=== PATIENT | female | born 1945 | race Caucasian/White ===

== ENCOUNTER → 2023-06-24 08:34 | Outpatient (REF) | payer MEDICARE, OTHER, SELFPAY | LOC: DHCBS MAIN 08:34 | PROVIDERS: ATTENDING PHYSICIAN Internal Medicine Cardiovascular Disease; FAMILY PHYSICIAN Family Medicine | DX: I10 Essential (primary) hypertension (principal); I25.10 Atherosclerotic heart disease of native coronary artery without angina pectoris; R00.2 Palpitations | CPT/HCPCS: 93306 ==

== ENCOUNTER → 2023-10-17 08:55 | Outpatient (REF) | payer MEDICARE, OTHER, SELFPAY | LOC: RAD 08:55 | PROVIDERS: ATTENDING PHYSICIAN Nurse Practitioner Adult Health | DX: R39.9 Unspecified symptoms and signs involving the genitourinary system (principal); N94.9 Unspecified condition associated with female genital organs and menstrual cycle | CPT/HCPCS: 76770 ==

== ENCOUNTER 2023-11-09 21:58 | Inpatient (IN) | payer MEDICARE, OTHER, SELFPAY ==
[2023-11-09 18:51] VITALS: BP 159/114
[2023-11-09 19:33] VITALS: BP 229/73
[2023-11-09 19:56] LABS: % Basophils 0.3 % (0-2); % Eosinophils 0.9 % (0-6); % Immature Granulocytes 0.3 % (0-0.5); % Lymphocytes 26.5 % (20.5-51.1); % Monocytes 6.3 % (1.7-9.3); % Neutrophils 65.7 % (42.2-75.2); Absolute Eosinophils 0.1 10^3/uL (0-0.7); Absolute Lymphocytes 2.6 10^3/uL (1.2-3.4); Absolute Monocytes 0.6 10^3/uL (0.1-0.6); Absolute Neutrophils 6.5 10^3/uL (1.4-6.5); Hematocrit 31.9 % (37.0-47.0); Hemoglobin 11.4 g/dL (12.0-16.0); Mean Corp Hgb Conc. 35.7 g/dL (33.0-37.0); Mean Corpuscular Hgb 29.3 pg (27.0-31.0); Mean Platelet Volume 10.5 fL (7.4-10.4); Nucleated Red Blood Cells % 0 %; Platelet Count 215 10^3/uL (130-400); Red Blood Cell Count 3.89 10^6/uL (4.20-5.40); Red Cell Dist. Width 13.3 % (11.5-14.5); White Blood Cell Count 9.9 10^3/uL (4.8-10.8)
[2023-11-09] MEDS: TRANDATE 10 MG IV (19:58)
[2023-11-09 20:12] LABS: Blood Urea Nitrogen 24 mg/dl (7-17); Calcium 8.9 mg/dl (8.4-10.2); Carbon Dioxide 27 mmol/L (22-30); Chloride 95 mmol/L (98-107); Glucose 103 mg/dl (70-99); Sodium 129 mmol/L (135-145); eGFR 57.31
[2023-11-09 20:42] VITALS: BP 206/88
[2023-11-09] MEDS: ATIVAN 1 MG PO (20:47)
--- NOTE | 2023-11-09 20:52 | ED.CVA ---
History of Present Illness
General
Chief Complaint: CVA/TIA Symptoms
Source: patient
Exam Limitations: none
Time Seen by Provider: 11/09/23 19:05
Nursing documentation reviewed up to this point in time: agreed with
Onset of Stroke Symptoms
Onset of symptoms known: Yes
Date of onset of symptoms: 11/09/23
History of Present Illness
History of Present Illness:
Patient with history of TIA and possible seizure disorder on Keppra, diagnosed after word finding difficulty episode 2 years ago, presents to ED secondary to recurrent word finding difficulty while she was at home, shortly prior to arrival in ED.
Denies fever or chills. Denies headache. Denies dizziness. Denies blurred vision. Denies difficulty with swallowing. Denies loss of sensation or weakness. Patient states that she had similar episode 2 years ago when she was initially given
diagnosis TIA. However, during follow-up visit at [facility], she was told that her symptoms were more likely secondary to seizure and has been started on Keppra. Patient has not had any recurrent symptoms until today. At the time of
evaluation in ED, patient states that her symptoms have resolved completely.
Past History
Past History
ED Past Medical History: Asthma, GERD, HTN, Hypercholesterolemia, Hypothyroidism, Psychiatric (anxiety) and Other (Low back pain, obesity)
ED Past Surgical History: Cholecystectomy, Gynecological (Hysterectomy) and Other (Skin cancer, melanoma removal)
Social History
Tobacco: Non-smoker
Alcohol: Occasional (Rare EtOH use)
Personal:
Living: with family
Employment: Retired
Family History
Family History: Hypertension; Negative CAD
Review of Systems
Review of Systems
Allergies reviewed?: Yes
All Other Systems: ROS reviewed and negative except as documented in HPI and ROS
Constitutional: Reports no symptoms
EENT: Reports no symptoms
Respiratory: Reports no symptoms
Cardiac: Reports no symptoms
ABD/GI: Reports no symptoms
Musculoskeletal: Reports no symptoms
Skin: Reports no symptoms
Neurological: Reports other (Word finding difficulty)
Phy Exam
Physical Exam
Physical Exam:
Physical Exam
General: no apparent distress, not acutely ill. afebrile
Head: nc/at. eomi
Neck: supple. no meningeal signs.
Heart: s1/s2 regular rate and rhythm, no murmur. equal radial pulses.
Lungs: no acute respiratory distress. clear bilaterally
Abdomen: normal bowel sounds. not tender.
Neuro: alert and oriented. no focal neurological deficits
Skin: no rash
Psychiatric: well kept. interactive and cooperative
Extremities: no edema. no calf tenderness.
Course
Orders/Labs/Results
Orders:
Orders
11/09/23 19:08
CT Head W/o Iv Contrast Urgent
Comment:
Reason For Exam: speech impairment
11/09/23 19:09
Electrocardiogram (*1) Stat
Reason for Study: Other
Other Reason for Exam: neuro symptoms
EKG- Treatment ONCE
11/09/23 19:37
Basic Metabolic Panel Urgent
Complete Blood Count/With Diff Urgent
Glycohemoglobin (HgbA1c) Urgent
11/09/23 19:54
Labetalol HCl [Trandate] 10 mg IV NOW STA
11/09/23 20:45
Lorazepam [Ativan] 1 mg PO NOW STA
11/09/23 20:47
Lorazepam [Ativan] 1 mg .ROUTE .STK-MED ONE
11/09/23 21:06
Aspirin 325 mg PO NOW STA
Clopidogrel Bisulfate [Plavix] 75 mg PO NOW STA
11/09/23 21:[address] Non Medication Order As Directed
Physician Order: please complete med rec. thanks
Above order entered?: Yes
11/09/23 21:45
Atenolol [Tenormin] 50 mg PO NOW STA
Atorvastatin [Lipitor] 40 mg PO NOW STA
Levetiracetam [Keppra] 500 mg PO NOW STA
Lisinopril [Zestril] 10 mg PO NOW STA
11/09/23 21:48
Admit/Transfer Patient As Directed
Co-Sign Provider:
Level of Care: Inpatient admission
Assign to:: Telemetry
Physician / Group: otilia guadarrama
Diagnosis: TIA
Reason for Telemetry: CVA/TIA
Date to Stop Telemetry: 11/12/23
Time to Stop Telemetry: 11:00
Reason for Hospitalization: TIA
Expected length of stay greater than two midnights?: Yes
ELOS- Estimated Length of Stay in days: 3
I certify the patient meets the requirements for IP care: Yes
11/09/23 21:49
PRN Pain Medication Management As Directed
May give lesser potent ordered pain med per pt: Yes
preference::
Protocol:: Medication orders for pain may be administered in a
manner that supports deferring to patient preference
when the pt is:
- Requesting an ordered lesser potent pain medication.
Least to most potent pain medications are defined
as: acetaminophen < NSAID < tramadol < opioids
(morphine, oxycodone, hydromorphone).
- Requesting a lesser dose of the same medication IF
ORDERED.
- Requesting a less intrusive route of administration
if both routes are prescribed by the provider (PO <
IV).
11/09/23 21:51
Code Status As Directed
Resuscitation Status: Full Code
11/09/23 23:50
Acetaminophen [Tylenol/Feverall] 650 mg RECTAL Q4HPRN PRN
Acetaminophen [Tylenol] 650 mg PO Q4HPRN PRN
Labetalol HCl [Trandate] 10 mg IV Q6HPRN PRN
Lorazepam [Ativan] 1 mg PO HS
11/09/23 23:50
Case Management Consult ONCE
Case Management Consult: Discharge Planning
Comment: stroke/tia
DIETARY CONSULT Routine
Reason for Consult: stroke/TIA
NEUROLOGY CONSULT Urgent
Consulting Provider: Shirin Carroll
Was physician already notified: Yes
Sample Distributor Urgent
Activity As Directed
Activity Level: As Tolerated
NIH Stroke Scale As Directed
Directions: Per protocol
Comment: every shift and with any change in condition or mental status
Neurological Checks As Directed
Frequency: q4h
Additional Instructions:: q4h x 24h upon admission to the floor, then qshift & with any change in condition
and mental status
Patient Education As Directed
Type: Stroke education packet
Comment: provide to patient and family
Pneumatic Compression Sleeves As Directed
Type: Thigh high
Swallow Screening CVA/TIA ONLY As Directed
Comment: NPO until swallowing screening completed
If patient FAILS swallow screening:: NPO, Speech Therapy consult, Aspiration Precautions
If patient PASSES swallow screening, diet:: Cholesterol Lowering
Above diet order entered?: Yes- passed screening
Vital Signs As Directed
Frequency: Per unit guidelines
Ot Eval And Treat Routine
Pt Eval And Treat Routine
Activity Level: As Tolerated
Speech Therapy Eval & Treat Routine
DX Deep Vein Thrombosis Video Routine
11/10/23 05:23
Basic Metabolic Panel IN AM
Cardiovascular Evaluation IN AM
Complete Blood Count/No Diff IN AM
11/10/23 06:00
Levothyroxine [Synthroid] 50 mcg PO DAILY @ 0600
11/10/23 08:00
Aspirin Chewable [Low Strength Aspirin] 81 mg PO DAILY
Atenolol [Tenormin] 50 mg PO BID
Buspirone [Buspar] 5 mg PO BID
Clopidogrel Bisulfate [Plavix] 75 mg PO DAILY
Levetiracetam [Keppra] 500 mg PO BID
Lisinopril [Zestril] 10 mg PO BID
Pantoprazole [Protonix] 40 mg PO DAILY
11/10/23 18:00
Atorvastatin [Lipitor] 40 mg PO QPM
11/11/23 06:00
Basic Metabolic Panel IN AM
Complete Blood Count/No Diff IN AM
11/12/23 06:00
Basic Metabolic Panel IN AM
Complete Blood Count/No Diff IN AM
11/12/23 11:00
DC Protocol for Telemetry ONCE
11/13/23 06:00
Basic Metabolic Panel IN AM
Complete Blood Count/No Diff IN AM
11/14/23 06:00
Basic Metabolic Panel IN AM
Complete Blood Count/No Diff IN AM
Abnormal Lab Results
11/09/23
19:37
RBC 3.89 L 10^6/uL
(4.20-5.40)
Hgb 11.4 L g/dL
(12.0-16.0)
Hct 31.9 L %
(37.0-47.0)
MPV 10.5 H fL
(7.4-10.4)
Sodium 129 L mmol/L
(135-145)
Chloride 95 L mmol/L
(98-107)
BUN 24 H mg/dl
(7-17)
Glucose 103 H mg/dl
(70-99)
11/09/23 19:37
11/09/23 19:37
Vital Signs
Initial and Last Documented VS:
Initial Vital Signs
Temp Pulse Resp BP Pulse Ox
98.2 F 75 16 159/114 98
11/09/23 18:51 11/09/23 18:51 11/09/23 18:51 11/09/23 18:51 11/09/23 18:51
Last Documented Vital Signs
Temp Pulse Resp BP Pulse Ox
98.0 F 67 18 150/74 93
11/11/23 03:05 11/11/23 03:00 11/11/23 03:05 11/11/23 03:00 11/11/23 03:05
MDM/Problems Addressed
MDM/Problems Addressed:
History and exam concerning for recurrent TIA versus hypertensive emergency. Patient will be admitted for further evaluation.
Discussed with Dr. Carroll, on-call neurology. Recommends starting patient on aspirin and Plavix (75mg)
*EKG
Interpreted by ED Provider?: Yes
EKG Intrepretation Date: 11/09/23
Heart Rate: 75
Rate: normal
Rhythm: sinus
[place]: left axis deviation
Interval: first degree heart block
*Critical Care Note
Total Time (30-74mins, 75-104mins- exclusive of procedures): Not Applicable
ED Attending Note
-
Portions of this chart may have been created with voice recognition software.� Occasional wrong word or��sound alike� substitutions may have occurred due to the inherent limitations of voice recognition software.
Discharge Plan
Departure
Patient Disposition: Admit
Date of Disposition: 11/09/23
Time of Disposition: 21:07
Admit to: Telemetry
Presentation/result/management discussed w/ accepting MD/DO: Hospitalist
Discharge Problem:
TIA (transient ischemic attack), Hypertensive emergency
Interventions
Interventions:
*Risk Screen - Suicide Last Done: 11/09/23 23:45
*General Assessment Last Done: 11/09/23 23:45
*Neglect/Abuse Screening Last Done: 11/09/23 23:45
*Nursing Disposition Last Done: 11/09/23 23:45
ED- Neurological Assessment Last Done: 11/09/23 19:35
ED- Cardiac Assessment Last Done: 11/09/23 19:37
ED Swallowing Screen Last Done: 11/09/23 19:34
Discharge Date and Time
Discharge Date/Time: 11/09/23 23:46
--- NOTE | 2023-11-09 21:26 | HPS.HSE ---
Family Physician
-
Family Physician: Stefan Tijerina Jr.
Chief Complaint
-
finding words difficulty
History of Present Illness
78 year old with PMH for GERD, HTN, HLD, hypothyroidism, anxiety, low back pain presented to us with finding words difficulty which lasted for 45 minutes. stated MCDANIEL. denied dizziness or syncopal episode. denied fever, chills, chest pain, sob. denied
abdominal pain, n,v,d. denied dysuria or hematuria.
on arrival noted elevated BP. received asa, Plavix, labetalol, Ativan in ER. Admitting for further management
Medical History
Past Medical History
Past Medical History: Reports Other
Additional Past Medical History:
Hypothyroidism
High cholesterol hypertension
GERD
TIA
Seizure
Anxiety
Past Surgical History: Reports Other
Additional Past Surgical History:
Cholecystectomy
Hysterectomy
Social History
Tobacco: Non-smoker
Alcohol: None
Drug: None
Personal:
Living: With Family
Family History
Family History: Not pertinent
Allergies / Home Medications
Allergies reflects when Allergies were last updated in [employer].
Home Medications with original date entered in [employer]
Allergy/Medication List:
Allergies
Allergy/AdvReac Type Severity Reaction Status Date / Time
ibuprofen AdvReac reflux Verified 11/09/23 18:57
symptoms
NSAIDS (Non-Steroidal AdvReac reflux Verified 11/09/23 18:57
Anti-Inflamma symptoms
Home Medications
atenolol 50 mg tablet 50 mg PO BID 05/15/15
atorvastatin 10 mg tablet 10 mg PO QPM 05/15/15
cholecalciferol (vitamin D3) 10 mcg (400 unit) tablet (Vitamin D3) 1,000 units PO DAILY 05/15/15
esomeprazole magnesium 40 mg capsule,delayed release (Nexium) 40 mg PO DAILY 05/15/15
levothyroxine 50 mcg tablet 50 mcg PO DAILY 05/15/15
ranitidine HCl 150 mg tablet 150 mg PO HSPRN PRN acid reflux 08/08/17
sucralfate 100 mg/mL oral suspension 1 gm PO DAILYPRN PRN GERD 08/08/17
acetaminophen 500 mg tablet (Tylenol Extra Strength) 1,000 mg PO Q6HPRN PRN pain 06/09/18
docusate sodium 100 mg capsule 100 mg PO DAILYPRN PRN stool softner 06/09/18
fluticasone propionate 50 mcg/actuation nasal spray,suspension 2 spray intranasal DAILYPRN PRN allergies 06/09/18
lisinopril 10 mg tablet 10 mg PO BID 06/09/18
lorazepam 1 mg tablet 1 mg PO HS 06/09/18
polyvinyl alcohol-povidone (PF) 1.4 %-0.6 % eye drops in a dropperette (Refresh Classic (PF)) 1 drops OPHTHALMIC HSPRN PRN dry eyes 06/09/18
albuterol sulfate 90 mcg/actuation aerosol inhaler (Ventolin HFA) 1 puff inhalation Q6HPRN PRN sob ##1 06/11/18
aspirin 81 mg chewable tablet 81 mg PO DAILY 08/30/21
hydrochlorothiazide 25 mg tablet 25 mg PO DAILY 08/30/21
buspirone 5 mg tablet 5 mg PO BID 11/09/23
levetiracetam 500 mg tablet (Keppra) 500 mg PO BID 11/09/23
Review of Systems
-
Constitutional: Reports No Symptoms
EENT: Reports No Symptoms
Respiratory: Reports No Symptoms
Cardiac: Reports No Symptoms
Abdomen/GI: Reports No Symptoms
: Reports No Symptoms
Musculoskeletal: Reports No Symptoms
Skin: Reports No Symptoms
Neurological: Reports Headache and Other (Finding words difficulty)
Endocrine: Reports No Symptoms
Hematologic/Lymphatic: Reports No Symptoms
Psych: Reports No Symptoms
Physical Exam
Vital Signs
Vital Signs
Temp Pulse Resp BP Pulse Ox
98.2 F 71 16 206/88 100
11/09/23 18:51 11/09/23 20:42 11/09/23 18:51 11/09/23 20:42 11/09/23 20:42
Physical Exam
General: Well Developed, Well Nourished and No Apparent Distress
HEENT: NormoCephalic, Moist mucous membranes and Atraumatic
Respiratory: Clear
Cardiac: S1/S2 and Regular Rhythm; No Murmur or Rub
GI: Soft, Non Tender, Non Distended and Normal Bowel Sounds; No Organomegaly
Rectal: Deferred by Provider
Musculoskeletal: No Clubbing, No Cyanosis and No Edema
Skin: No Rash
Neuro: AO x 3 and Nonfocal/grossly intact
Psych: Calm
Laboratory Results
-
11/09/23 19:37
11/09/23 19:37
Laboratory Results
Total Bilirubin Cancelled 11/09/23 19:37
AST Cancelled 11/09/23 19:37
ALT Cancelled 11/09/23 19:37
Alkaline Phosphatase Cancelled 11/09/23 19:37
Data Reviewed
-
CT Scan: Report Reviewed by me
Lab Data: Labs Reviewed by me
Impression/Plan
-
#words finding difficulty r/o TIA
-asa and Plavix
-Obtain MRI/MRA
-Continue statin
-Obtain A1c and lipid profile-
-PT OT consult
-Neurology consult
-Head CT There are no focal or acute intracranial abnormalities.There is mild diffuse cortical atrophy
# Anemia of chronic disease
Hemoglobin stable at 11.4-
-no active bleeding
-Continue to monitor
# Acute on chronic hyponatremia likely from HCTZ
-Sodium 129
-Hold HCTZ
# Hypertension emergency
-Systolic BP elevated in 200s
-Received labetalol in ER
-Will continue atenolol, lisinopril with hold parameters
-CKD 3a/b
-Creatinine stable
# Anxiety
-Buspirone continued
# Seizure
-Keppra continued
#GERD on PPI and Carafate, H2 blockers
#Hypothyroidism
-continue Synthroid
# CODE STATUS
-Full code
# DVT prophylaxis
-SCDs
[2023-11-09] MEDS: ASPIRIN 325 MG PO (21:47)
[2023-11-09] MEDS: PLAVIX 75 MG PO (21:48)
--- NOTE | 2023-11-09 21:57 | W.PN.UPDATE ---
Addendum entered and electronically signed by Leighton Cartagena MD 11/10/23 12:33:
Correction:
VS upn admission from ER: BP 229/78 <del>1229/78</del> --> 205/88 <del>105/88</del> s/p IV labetalol 10mg --> BP 180/80 HR 71
Original Note:
Update Note
Progress Note Update
This note serves as an addendum to the H&P by mine utility operator DAISY BUTT
HPI
78F Non smoker HX TIA, possible Sz disorder , HX HTN, HLD, GERD graciela t ER for acute abnornla speech with recurrent word finding difficult at home. Similar episode 2 years ago when she was initially given diagnosis TIA. However, during follow-up
visit at [facility], she was told that her symptoms were more likely secondary to seizure and has been started on Keppra
PHX
Asthma, GERD, HTN, Hypercholesterolemia, Hypothyroidism, Psychiatric (anxiety), Other (Low back pain, obesity)
Reviewed VS: BP 1229/78 --> 105/88 s/p IV labetalol 10mg --> BP 180/80 HR 71
PE
Gen: Not toxic , obese
HEENT: symmetric face, nomal speech
Neck: supple
Lungs: CTA
Cor: RRR S1 S2 no mummur
Abdomen: benign exam
SUSTAINABILITY OFFICER: AAO3 NFND
MS: no edema
Psych: interactive and cooperative
Data
nl CBC
Na 129 on HCTZ - baseline 126- 130
Cl 95
BUN 24
eGFR 57 c/w CKD 3
EKG
SINUS RHYTHM WITH 1ST DEGREE A-V BLOCK
LEFT AXIS DEVIATION
LEFT VENTRICULAR HYPERTROPHY WITH QRS WIDENING AND REPOLARIZATION ABNORMALITY
( R in aVL , [place] product )
ABNORMAL ECG
WHEN COMPARED WITH ECG OF 29-AUG-2021 18:46,
CRITERIA FOR SEPTAL INFARCT ARE NO LONGER PRESENT
HCT:
There are no focal or acute intracranial abnormalities.
There is mild diffuse cortical atrophy
06/24/23 TTE:
LV ejection fraction is 56%
Normal right ventricular size and function
Mild mitral regurgitation.
Trace tricuspid regurgitation.
pulmonary artery pressure of 26 mmHg assuming a right atrial pressure of 3 mmHg.
Last hospitalist admission: 08/30/21 - 09/07/21
PDX: Presumed transient ischemic attack.
ASSESSMENT & PLAN
Pending Rx reconciliation
Episodes of word finding difficulty DDX: TIA r/o CVA vs HTN encephalopathy
NEG HCT
- Add plavix to TUGBOAT ENGINEER ASA daily
- [place] Atorvastatin to 40 HS
- Brain MRI to Neuro
- Neuro consulted
HTN urgency
Essential HTN on Lisinopril and atenolol
- to give TUGBOAT ENGINEER Atenolol and Lisinopril
- IV labetalol PRN > SBP 185 DBP > 110
- Observe BP
CKD 3a s baseline
Base line Cr 1.3, eGFR FR 50 s
- Observe Cr
HX Mild Asthma
> no flare
GERD on PPI and Carafate, H2 blockers
Hypothyroidism
-continue Synthroid
Sciatica
DVT Px: SCD
Code: Full
IP TLM
[2023-11-09 22:18] VITALS: BP 188/88
[2023-11-09] MEDS: TENORMIN 50 MG PO (22:32)
[2023-11-09] MEDS: ZESTRIL 10 MG PO (22:32)
[2023-11-09] MEDS: LIPITOR 40 MG PO (22:33)
[2023-11-09] MEDS: KEPPRA 500 MG PO (22:37)
--- NOTE | 2023-11-09 23:50 | PTCARENOTE ---
Pt received from ED to [facility]-2. Oriented to room and call fournier.
[2023-11-10] VITALS (9 sets, daily range): BP systolic 148–178; BP diastolic 68–82; PULSE 61–71; O2SAT 97
[2023-11-10] MEDS: ATIVAN PO (00:49)
[2023-11-10] MEDS: BUSPAR 5 MG PO ×3 (01:19→20:13)
[2023-11-10] MEDS: SYNTHROID 50 MCG PO (06:06)
[2023-11-10 06:40] LABS: Hematocrit 31.3 % (37.0-47.0); Hemoglobin 11.1 g/dL (12.0-16.0); Mean Corp Hgb Conc. 35.5 g/dL (33.0-37.0); Mean Corpuscular Hgb 29.9 pg (27.0-31.0); Mean Corpuscular Volume 84.4 fL (81.0-99.0); Mean Platelet Volume 10.9 fL (7.4-10.4); Platelet Count 207 10^3/uL (130-400); Red Blood Cell Count 3.71 10^6/uL (4.20-5.40); Red Cell Dist. Width 13.2 % (11.5-14.5); White Blood Cell Count 9.9 10^3/uL (4.8-10.8)
[2023-11-10 06:43] LABS: Blood Urea Nitrogen 22 mg/dl (7-17); Calcium 9.1 mg/dl (8.4-10.2); Carbon Dioxide 29 mmol/L (22-30); Chloride 94 mmol/L (98-107); Glucose 90 mg/dl (70-99); HDL Cholesterol 71 mg/dl; LDL Cholesterol, Calculated 62 mg/dl; Potassium 3.4 mmol/L (3.5-5.1); Sodium 131 mmol/L (135-145); Total Cholesterol 144 mg/dl (50-199); Triglyceride 55 mg/dl (10-149); Very Low Density Lipoprotein 11 mg/dl (0-30); eGFR 57.31
[2023-11-10] MEDS: ZESTRIL 10 MG PO ×2 (07:50→20:13)
[2023-11-10] MEDS: PROTONIX 40 MG PO (07:50)
[2023-11-10] MEDS: LOW STRENGTH ASPIRIN 81 MG PO (07:51)
[2023-11-10] MEDS: KEPPRA 500 MG PO ×2 (07:51→20:12)
[2023-11-10] MEDS: PLAVIX 75 MG PO (07:51)
[2023-11-10] MEDS: TENORMIN 50 MG PO ×2 (07:51→20:20)
--- NOTE | 2023-11-10 08:50 | PTOTSP ---
Speech Language Pathology
Pt seen for speech/language evaluations. No dysarthria noted. Language evaluated via the Quick Aphasia Battery (QAB), form 1. Overall score of 9.33, indicative of no aphasia. Pt reported she is back to baseline.
Further [employer]IPE [employer] MAINTENAN[employer] services not indicated. Please reconsult as warranted.
[2023-11-10] MEDS: KCL 20 MEQ PO (09:02)
[2023-11-10 09:15] LABS: Glycohemoglobin (HgbA1c) 5.6 % (4.0-5.6)
--- NOTE | 2023-11-10 09:23 | CON.NEURO4 ---
Consultation - Neurology 4
-
CONSULTING PHYSICIAN: Gilberto Magallon MD
REFERRING PHYSICIAN: Hospitalist
DICTATED BY: Gilberto Magallon MD
DATE/TIME OF REQUEST:
DATE/TIME OF CONSULTATION: 11/10/2023 0915
Reason for Consultation: Word finding difficulty
History of Present Illness:
This is a 78 year old right handed female who has presented to the hospital with chief complaint of speech impediment. She gives a history of hypertension GERD hyperlipidemia hypothyroidism anxiety disorder who has had multiple hospital visits in
the past for speech impediment. She had been in her usual state of health till an hour before admission on November 08. At that time she had difficulty expressing herself. She then came to the emergency room and her blood pressure was noted to be
elevated. She had no neurological deficits. She has had no further episodes following admission. At the time of my examination she is extremely anxious
-
Past Medical History: Hypertension anxiety disorder
Surgical History: Cholecystectomy and hysterectomy
Family History: Noncontributory
Social History: retired lives at home with her
Allergies: NSAIDs
Home Medications: See addendum
Review of Symptoms:
Patient denies any fever, headache, chest pain, shortness of breath, GI or symptoms.
�Per the HPI.�All systems are reviewed negative except above.
�- Remove any of these problems that patient may have complained about in the HPI.
�- If patient is unresponsive, intubated or demented, say 'Per the HPI. I am unable to obtain a complete review of systems�because of patient's inability to provide history.'
Vital Signs:
The patient has a
Physical Exam:
The patient is afebrile, heart sounds S1 and S2 are regular , and chest is clear to auscultation bilaterally.
- If not clear, describe.
NIH Stroke Scale (if applicable):
I performed the NIH stroke scale on the patient and his stroke score is 0
Neurologic Examination:
The patient is awake, alert and oriented x 3. (He/She) is able to follow commands and answer questions appropriately. There is no aphasia or dysarthria. On cranial nerve assessment, pupils are 3 mm bilateral, round and reactive to light and
accommodation. Visual stover are full. Extraocular movements are intact. Facial sensations are intact and bilaterally symmetrical, there is no facial asymmetry. Hearing is intact bilaterally to normal conversation volume. Tongue palate and uvula
are midline. Sternocleidomastoid strengths are full bilaterally. Motor strengths are 5/5 bilateral upper and lower extremities on medical research Sycuan scale. There is no drift or involuntary movement noted. Deep tendon reflexes are 2+ bilateral
upper and lower extremities and Babinski is absent bilaterally. Sensations of pain, touch, temperature and vibration are intact and bilaterally symmetrical. There was no extinction noted on double simultaneous stimulation. Coordination is intact by
finger to nose bilaterally.
Lab Results: Addendum
Neuro Imaging: Atrophy small vessel disease
Impression:
Ms. MAIKEL GOMEZ is a 78 year old F who has presented to the hospital with symptoms.
Recommendations:
1. Continue aspirin
2. Continue Keppra
3. MRI of the head
She may be discharged home once medically stable
Discussed patient care with: Hospitalist
Total Time Spent with Patient (in minutes): 30
Vital Signs and Labs
-
Vital Signs and Labs:
Vital Signs
Temp Pulse Resp BP Pulse Ox
36.5 C 63 18 178/80 97
11/10/23 03:47 11/10/23 03:57 11/10/23 03:57 11/10/23 03:57 11/10/23 03:47
Lab Results
11/10/23 05:23
11/10/23 05:23
Sodium 131 mmol/L (135-145) L 11/10/23 05:23
Potassium 3.4 mmol/L (3.5-5.1) L 11/10/23 05:23
BUN 22 mg/dl (7-17) H 11/10/23 05:23
Glucose 90 mg/dl (70-99) 07/22/24 05:23
Calcium 9.1 mg/dl (8.4-10.2) 11/10/23 05:23
LDL Cholesterol, Calc 62 mg/dl 11/10/23 05:23
Medications
-
Active Medications
Generic Name Dose Route Start Last Admin
Trade Name Freq PRN Reason Stop Dose Admin
Acetaminophen 650 mg 11/09/23 23:50
Acetaminophen 650 Mg Rectal Suppository RECTAL 12/07/23 23:49
Q4HPRN PRN
MCDANIEL, mild pain, or temp >100.4F
Acetaminophen 650 mg 11/09/23 23:50
Acetaminophen 325 Mg Tablet PO 12/07/23 23:49
Q4HPRN PRN
MCDANIEL, mild pain, or temp >100.4F
Aspirin 81 mg 11/10/23 08:00 11/10/23 07:51
Aspirin 81 Mg Chewable Tablet PO 12/08/23 07:59 81 mg
DAILY PEPE Administration
Atenolol 50 mg 11/10/23 08:00 11/10/23 07:51
Atenolol 50 Mg Tablet PO 12/08/23 07:59 50 mg
BID PEPE Administration
Atorvastatin Calcium 40 mg 11/10/23 18:00
Atorvastatin (Lipitor) 40 Mg Tablet PO 12/08/23 17:59
QPM PEPE
Buspirone HCl 5 mg 11/10/23 08:00 11/10/23 07:51
Buspirone 5 Mg Tablet PO 12/08/23 07:59 5 mg
BID PEPE Administration
Clopidogrel Bisulfate 75 mg 11/10/23 08:00 11/10/23 07:51
Clopidogrel 75 Mg Tablet PO 12/08/23 07:59 75 mg
DAILY PEPE Administration
Labetalol HCl 10 mg 11/09/23 23:50
Labetalol Hcl 5 Mg/1 Ml (20 Mg/4 Ml) Injection IV 12/07/23 23:49
Q6HPRN PRN
htn
Levetiracetam 500 mg 11/10/23 08:00 11/10/23 07:51
Levetiracetam 500 Mg Regular Release Tablet PO 12/08/23 07:59 500 mg
BID PEPE Administration
Levothyroxine Sodium 50 mcg 11/10/23 06:00 11/10/23 06:06
Levothyroxine 50 Mcg Tablet PO 12/08/23 05:59 50 mcg
DAILY @ 0600 PEPE Administration
Lisinopril 10 mg 11/10/23 08:00 11/10/23 07:50
Lisinopril 10 Mg Tablet PO 12/08/23 07:59 10 mg
BID PEPE Administration
Lorazepam 1 mg 11/09/23 23:50 11/10/23 00:49
Lorazepam 1 Mg Tablet PO 12/07/23 23:49 Not Given
HS PEPE
Pantoprazole Sodium 40 mg 11/10/23 08:00 11/10/23 07:50
Pantoprazole 40 Mg Delayed Release Tablet PO 12/08/23 07:59 40 mg
DAILY PEPE Administration
Sodium Chloride 0 flush 11/09/23 23:00
Sodium Chloride 0.9% (Flush) Syringe IV 12/07/23 22:59
PER PROTOCOL PEPE
Home Medications
�Medication �Instructions �Recorded
atenolol 50 mg tablet 50 mg PO BID 05/15/15
atorvastatin 10 mg tablet 10 mg PO QPM 05/15/15
cholecalciferol (vitamin D3) 10 1,000 units PO DAILY 05/15/15
mcg (400 unit) tablet (Vitamin D3)
levothyroxine 50 mcg tablet 50 mcg PO DAILY 05/15/15
ranitidine HCl 150 mg tablet 150 mg PO HSPRN PRN acid reflux 08/08/17
sucralfate 100 mg/mL oral 1 gm PO DAILYPRN PRN GERD 08/08/17
suspension
acetaminophen 500 mg tablet 1,000 mg PO Q6HPRN PRN pain 06/09/18
(Tylenol Extra Strength)
docusate sodium 100 mg capsule 100 mg PO DAILYPRN PRN stool 06/09/18
softner
fluticasone propionate 50 2 spray intranasal DAILYPRN PRN 06/09/18
mcg/actuation nasal allergies
spray,suspension
lisinopril 10 mg tablet 10 mg PO BID 06/09/18
lorazepam 1 mg tablet 1 mg PO HS 06/09/18
polyvinyl alcohol-povidone (PF) 1 drops OPHTHALMIC HSPRN PRN dry 06/09/18
1.4 %-0.6 % eye drops in a eyes
dropperette (Refresh Classic (PF))
albuterol sulfate 90 mcg/actuation 1 puff inhalation Q6HPRN PRN sob 06/11/18
aerosol inhaler (Ventolin HFA) ##1
aspirin 81 mg chewable tablet 81 mg PO DAILY 08/30/21
hydrochlorothiazide 25 mg tablet 25 mg PO DAILY 08/30/21
buspirone 5 mg tablet 5 mg PO BID 11/09/23
levetiracetam 500 mg tablet 500 mg PO BID 11/09/23
(Keppra)
esomeprazole magnesium 40 mg 40 mg PO DAILY 11/10/23
capsule,delayed release (Nexium)
--- NOTE | 2023-11-10 09:27 | PTOTSP ---
Pt presents to OT oriented x 3, follows 1-2 step directions, vision WFL with glasses, and UB ROM, strength and coordination is WFL. Currently at mod I level for basic self care, transfers and mobility in room and bathroom without AD. No further
skilled OT indicated at this time.
--- NOTE | 2023-11-10 12:15 | CM ---
Patient seen bedside, initial assessment completed. Patient resides with her in a single story home, two steps to enter. Patient has a single point cane and rolling walker at home if needed, typically ambulates independently. Patient denies
VN or SNF history. Patient confirms PCP Stefan Tijerina, [facility]. Patient denies any food, housing/utility, transportation insecurities at home. CM will continue to follow for all discharge planning needs.
Plan; home no needs likely.
--- NOTE | 2023-11-10 16:37 | CS.PSYCHR ---
Consult Summary - Psychiatry
-
Pt is 78 yo female with history of anxiety, admitted after presenting with episode of word-finding difficulty last approx 45 min, headache. Pt found to have very high BP. Psychiatry asked to see due to anxiety. Pt states she has always been a
very anxious person, worries about the future, now preoccupied with her 's health, her own health problems, finances, stress of aging. Pt states she is terrified of having a stroke. Pt is prescribed Buspar 5 mg BID and Ativan 1 mg HS by her
PCP. Pt very nervous about having an MRI, states it reminds her of a coffin.
PMH: TIA, possible Sz disorder, HTN, HLD, GERD, back pain due to degen discs. Pt had similar episode 2 years ago, initially diagnosed with TIA. However, in f/u with [facility], she was told that her symptoms were more likely secondary
to seizure, placed on Keppra
Psych Hx: previous outpatient therapy, which was helpful for the most part, states it is now too expensive since care home. Saw a psychiatrist at age 21, which helped overall, states issues with her father who had a volatile temper. No hx of
inpatient tx
SH: , living with age 82. 'Worked by [employer],' now retired.
MSE: alert, oriented, calm, cooperative. Resting in bed, in no acute distress. Mood stable, affect appropriate/constricted. Pt c/o anxiety, excess worry. Denies SI. No agitation, no signs of psychosis. Insight fair to limited regarding
anxiety-inducing mindset
Imp: Unspecified anxiety d/o, R/o JANIE vs adjustment d/o
Rec: continue existing anxiety meds; encourage pt to seek outpatient therapy upon return home/ when medically stable
Agree with prn Ativan, may help with MRI. Will follow
--- NOTE | 2023-11-10 16:51 | W.PN.HOSP.TC ---
Addendum entered and electronically signed by Dillon Mann MD 11/10/23 17:30:
I saw and evaluated the patient. I reviewed the resident�s note and agree with findings and plan as documented in the resident�s note.
Original Note:
Today's Communication/Plan
-
Brain MRI--Neurology consult
Assessment / Plan
Assessment / Plan
78F Non smoker, PMH HTN, HLD, GERD, TIA/Seizure
--Acute abnormal speech with word finding difficult at home: Patient has not shown any signs of abnormal speech, vision changes, gait abnormalities, weakness/sensory deficits, or swallowing difficulties since admission. Head CT--no focal or acute
intracranial abnormalities.There is mild diffuse cortical atrophy--EKG: Sinus rhythm with 1st degree AV block--Neurology consult ordered-- MRI to be done--apprec speech therapist
--Essential HTN: Elevated BP on admission--IV labetalol PRN given--cont Lisinopril and atenolol (home medications)--Monitor BP
--Anxiety: Cont Buspar-- Start Ativan PRN--apprec psychiatry
--GERD: Pantoprazole
--Hypothyroidsm: Cont Levothyroxin
DVT prophylaxis: SCD
Anticipated Discharge: 24 - 48 hours
Subjective/Interval History
-
Date of Service: November 10, 2023
Patient is feeling good. Is alert and oriented. She seem very anxious and worried about her health condition. She does not mention any word finding difficulties overnight. Speech is normal.
Objective Data
-
Labs:
Laboratory Results
11/10/23
05:23
WBC 9.9
Hgb 11.1 L
Hct 31.3 L
Plt Count 207
Sodium 131 L
Potassium 3.4 L
Chloride 94 L
Carbon Dioxide 29
BUN 22 H
Creatinine 1.0
Glucose 90
Calcium 9.1
Vital Signs:
Vital Signs
Temp Pulse Resp BP Pulse Ox
97.8 F 68 18 152/78 96
11/10/23 14:35 11/10/23 14:35 11/10/23 14:35 11/10/23 14:35 11/10/23 14:35
Review of Systems
-
History Source: Patient
All other systems: Reviewed and negative
Neuro: Reports Headache (occasional headaches)
Psych: Reports Anxious
Physical Exam
-
General: Well Developed and Well Nourished
HEENT: Normocephalic and Atraumatic
Respiratory: Clear to Auscultation
Cardiac: Regular Rhythm and S1/S2
GI: Soft, Nontender, Nondistended and Normal Bowel Sounds
Genito-urinary: No Costovertebral Tender
Musculoskeletal: No Clubbing, No Cyanosis and No Edema
Neuro: Awake, Alert, Oriented and AO x 3
Psych: Anxious
Data Reviewed
-
Total Time Spent with Patient (in minutes): 25
[2023-11-10] MEDS: LIPITOR 40 MG PO (17:04)
[2023-11-10] MEDS: ATIVAN 0.5 MG PO (17:08)
[2023-11-10] MEDS: ATIVAN 1 MG PO (21:28)
[2023-11-11 03:00] VITALS: BP 150/74
[2023-11-11] MEDS: SYNTHROID 50 MCG PO (05:37)
[2023-11-11] MEDS: KEPPRA 500 MG PO (07:56)
[2023-11-11] MEDS: PROTONIX 40 MG PO (07:56)
[2023-11-11] MEDS: PLAVIX 75 MG PO (07:56)
[2023-11-11] MEDS: BUSPAR 5 MG PO (07:56)
[2023-11-11] MEDS: LOW STRENGTH ASPIRIN 81 MG PO (07:56)
[2023-11-11] MEDS: TENORMIN 50 MG PO (07:57)
[2023-11-11] MEDS: ZESTRIL 10 MG PO (07:57)
[2023-11-11 08:00] VITALS: BP 160/84
--- NOTE | 2023-11-11 08:18 | W.PN.HOSP.TC ---
Addendum entered and electronically signed by Ren Jacobo MD, Resident 11/11/23 17:53:
MRI findings were discussed with Dr. Mann and Dr. Magallon (neurologist). Patient is clinically stable and is clear for discharge from Neurology standpoint (documented through [employer]).
Addendum entered and electronically signed by Dillon Mann MD 11/11/23 15:27:
I saw and evaluated the patient. I reviewed the resident�s note and agree with findings and plan as documented in the resident�s note.
Await MRI brain for further eval. Appreciate neurology input. DC Plavix if no acute stroke or intracranial atherosclerosis.
With regards to hypertension not at goal yet. Went over the patient that hydrochlorothiazide not a good choice with hyponatremia. She is agreeable to uptitrate the lisinopril to 20 mg twice daily and continue with her atenolol.
DC planning depending on MRI of the brain.
Original Note:
Today's Communication/Plan
-
Brain MRI without contrast
Assessment / Plan
Assessment / Plan
78F Non smoker, PMH HTN, HLD, GERD, TIA/Seizure
--Acute abnormal speech with word finding difficult at home: Patient has not shown any signs of abnormal speech, vision changes, gait abnormalities, weakness/sensory deficits, or swallowing difficulties since admission. Head CT--no focal or acute
intracranial abnormalities.There is mild diffuse cortical atrophy--EKG: Sinus rhythm with 1st degree AV block--Neurology consult ordered--apprec speech therapist--MRI to be done
--Essential HTN: Elevated BP on admission--IV labetalol PRN given--cont Lisinopril and atenolol (home medications)--Monitor BP
--Anxiety: Cont Buspar-- Start Ativan PRN--apprec psychiatry
--GERD: Pantoprazole
--Hypothyroidsm: Cont Levothyroxin
DVT prophylaxis: SCD
Anticipated Discharge: Within 24 hours
Subjective/Interval History
-
Date of Service: November 11, 2023
Patient did not have any medical complaints. She only mentions she is worried about experiencing stroke symptoms again. Speech and gait is normal.
Objective Data
-
Labs:
Laboratory Results
11/11/23
06:00
WBC Pending
Hgb Pending
Hct Pending
Plt Count Pending
Sodium Pending
Potassium Pending
Chloride Pending
Carbon Dioxide Pending
BUN Pending
Creatinine Pending
Glucose Pending
Calcium Pending
Vital Signs:
Vital Signs
Temp Pulse Resp BP Pulse Ox
98.0 F 60 18 160/84 93
11/11/23 03:05 11/11/23 07:57 11/11/23 03:05 11/11/23 07:57 11/11/23 03:05
Review of Systems
-
History Source: Patient
All other systems: Reviewed and negative
Psych: Reports Anxious
Physical Exam
-
General: Well Developed, Well Nourished, Comfortable and Obese
HEENT: Normocephalic and Atraumatic
Respiratory: Clear to Auscultation
Cardiac: Regular Rhythm and S1/S2
GI: Soft, Nontender and Nondistended
Musculoskeletal: No Clubbing, No Cyanosis and No Edema
Neuro: Awake, Alert, Oriented and AO x 3
Psych: Anxious
Data Reviewed
-
Total Time Spent with Patient (in minutes): 15
[2023-11-11 08:45] LABS: Hematocrit 32.5 % (37.0-47.0); Hemoglobin 11.4 g/dL (12.0-16.0); Mean Corp Hgb Conc. 35.1 g/dL (33.0-37.0); Mean Corpuscular Hgb 28.9 pg (27.0-31.0); Mean Corpuscular Volume 82.5 fL (81.0-99.0); Mean Platelet Volume 10.1 fL (7.4-10.4); Platelet Count 202 10^3/uL (130-400); Red Blood Cell Count 3.94 10^6/uL (4.20-5.40); Red Cell Dist. Width 13.3 % (11.5-14.5); White Blood Cell Count 8.6 10^3/uL (4.8-10.8)
[2023-11-11 09:00] LABS: Blood Urea Nitrogen 22 mg/dl (7-17); Calcium 9.4 mg/dl (8.4-10.2); Carbon Dioxide 31 mmol/L (22-30); Chloride 93 mmol/L (98-107); Glucose 98 mg/dl (70-99); Potassium 3.7 mmol/L (3.5-5.1); Sodium 131 mmol/L (135-145); eGFR 51.11
--- NOTE | 2023-11-11 10:35 | W.PN.UPDATE ---
Update Note
Progress Note Update
Patient seen at bedside, chart reviewed, discussed with staff. Ms. Gordillo is awaiting MRI and hoping to go home as soon as possible. She is not comfortable in her bed and feels the rooms are set up poorly. Her back is bothering her as well. Her phone
and there is no convenient place to plug it in at. BP remains elevated which she reports is disappointing. Denies any other issues. She will ask for PRN Ativan prior to MRI.
Impression/Recommendation: Unspecified anxiety disorder - continue current psychotropic medication regimen, encouraged to consider psychotherapy as outpatient
.
[2023-11-11] MEDS: ATIVAN 0.5 MG PO (10:41)
[2023-11-11 12:00] VITALS: BP 142/72
--- NOTE | 2023-11-11 14:55 | CM ---
Patient seen bedside with , reports awaiting MRI results. Patient hopeful for discharge. IMM reviewed with patient and , patient eating lunch, agreeable to CM to document IMM was reviewed. Patient denies any needs upon discharge. CM
will continue to follow for all discharge planning needs.
Plan; home no needs.
--- NOTE | 2023-11-11 16:13 | W.DCSUMMARY ---
Discharge Summary
Discharge Data
Date of Admission: 11/09/23
Date of Discharge: 11/11/23
Total time spent discharging patient (in min): 30
-
Pending Results: No
Hospital Course
Patient is a 78-year-old female who presented to ED with word finding difficulty while she was at home, that lasted for about 45 minutes. She did not report any headache, dizziness, vision changes, swallowing difficulties, loss of sensation or
weakness, numbness or tingling. She did not have any fever/chills. Patient stated that she had a similar episode 2 years ago when she was initially given TIA diagnosis. However, during follow-up visit at [place], she was told that her symptoms
were more likely secondary to seizure and has been on Keppra since. Patient did not had any symptoms when she arrived in the ED and her speech was normal. However, workup in the ED showed an elevated systolic blood pressure of >200. She was given
IV labetalol and Plavix and was admitted for further evaluation and rule out of possible TIA/stroke.
# Speech impediment: Patient did not show any signs of abnormal speech, vision changes, gait abnormalities, weakness/sensory deficits, or swallowing difficulties during the entirety of stay. Head CT (11/09/23) showed no focal or acute intracranial
abnormalities, suggested mild diffuse cortical atrophy. Neurology was consulted.
Brain MRI w/o contrast (11/11/23): No signs of acute or subacute infarction. There is no MR evidence for acute intracranial hemorrhage. Incidental finding of partially empty sella.
Neck MRA (11/11/23): No evidence for significant narrowing of the common carotid arteries, carotid bulbs, or proximal internal carotid arteries bilaterally. No significant narrowing of the cervical internal carotid arteries bilaterally. Tapered
narrowing of the distal M1 portion of the left middle cerebral artery, with estimated diameter reduction of approximately 50%. No significant narrowing of the vertebral or basilar arteries
Head MRA (11/11/23): Narrowing of the distal M1 portion of the left middle cerebral artery. Correlating with contrast-enhanced images, this appears to represent an approximately 50% diameter reduction.
Imaging findings were discussed with Dr. Mann (water trainer) and Dr. Magallon (neurologist). Plavix was discontinued and patient was cleared for discharge from Neurology standpoint.
# Hyponatremia: Hydrochlorothiazide was held during stay and will be discontinued after discharge.
# Essential HTN: Patient had elevated SBP on admission, IV labetalol PRN was given in ED. Lisinopril and atenolol were continued during stay and BPs were continuously monitored. Patient was advised to increased lisinopril dose to 20mg BID after
discharge.
# Anxiety: Buspar was continued for patient. Ativan was given as needed. Psychiatry visited patient and advised on follow-up as outpatient.
#Hypothyroidism: No changes as prior to admission, Levothyroxine was continued.
#GERD: No changes as prior to admission, Pantoprazole was given during hospital stay.
Patient is in good clinical condition and is stable for discharge to home.
Discharge Plan
-
Patient Disposition: Home (Routine Discharge)
Discharge Diagnosis/Procedures: Transient speech impairment ;Hypertension, CKD stage 3, GERD, Anxiety
Condition: Good
Diet: As tolerated
Activity: As tolerated
Driving Restrictions: Not until seen by your Dr
Bathing Restrictions: None
Referrals:
Stefan Tijerina Jr., DO [Family Provider] - in less than 1 week
Prescriptions:
New
lisinopril 20 mg tablet
20 mg PO BID Qty: 60 0RF
Continued
atorvastatin 10 MG tablet
10 mg PO QPM
levothyroxine 50 MCG tablet
50 mcg PO DAILY
Patient Comments:
06/09/18 ss; pt takes BRAND NAME
cholecalciferol (vitamin D3) [Vitamin D3] 400 UNITS tablet
1,000 units PO DAILY
atenolol 50 MG tablet
50 mg PO BID
sucralfate 1 GM/10 ML suspension
1 gm PO DAILYPRN PRN (Reason: GERD)
ranitidine HCl 150 MG tablet
150 mg PO HSPRN PRN (Reason: acid reflux)
acetaminophen [Tylenol Extra Strength] 500 MG tablet
1,000 mg PO Q6HPRN PRN (Reason: pain)
docusate sodium 100 MG capsule
100 mg PO DAILYPRN PRN (Reason: stool softner)
lorazepam 1 MG tablet
1 mg PO HS
fluticasone propionate 1 SPRAY spray,suspension
2 spray intranasal DAILYPRN PRN (Reason: allergies)
Refresh Classic (PF) 10 DROPS dropperette
1 drops OPHTHALMIC HSPRN PRN (Reason: dry eyes)
albuterol sulfate [Ventolin HFA] 90 MCG/PUFF HFA aerosol inhaler
1 puff inhalation Q6HPRN PRN (Reason: sob) Qty: 1 0RF
Rx Instructions:
indication-asthma
aspirin 81 MG tablet,chewable
81 mg PO DAILY 0RF
levetiracetam [Keppra] 500 mg Tablet
500 mg PO BID
buspirone 5 mg Tablet
5 mg PO BID
esomeprazole magnesium [Nexium] 40 mg Capsule,Delayed Release(Dr/Ec)
40 mg PO DAILY
Discontinued
lisinopril 10 MG tablet
10 mg PO BID
hydrochlorothiazide 25 MG tablet
25 mg PO DAILY
Discharge Date and Time
Print Language: YORUBA
[2023-11-11] MEDS: LIPITOR 40 MG PO (17:16)
--- NOTE | 2023-11-11 18:18 | W.DS.TRANS ---
DC Summary - Section Leader
-
Discharge Instructions:
Discharge Diagnosis/Procedures Transient speech impairment ;Hypertension, CKD
stage 3, GERD, Anxiety
Diet As tolerated
Activity As tolerated
Driving Restrictions Not until seen by your Dr
Bathing Restrictions None
Instructions:
Stand-Alone Forms:
Changes to Home Medications: Yes
Discharge Medications:
DC Medications w/original date entered in [facility]
atenolol 50 mg tablet 50 mg PO BID Blood Pressure 05/15/15
atorvastatin 10 mg tablet 10 mg PO QPM High Cholesterol 05/15/15
cholecalciferol (vitamin D3) 10 mcg (400 unit) tablet (Vitamin D3) 1,000 units PO DAILY Supplement 05/15/15
levothyroxine 50 mcg tablet 50 mcg PO DAILY Thyroid 05/15/15
ranitidine HCl 150 mg tablet 150 mg PO HSPRN PRN acid reflux 08/08/17
sucralfate 100 mg/mL oral suspension 1 gm PO DAILYPRN PRN GERD 08/08/17
acetaminophen 500 mg tablet (Tylenol Extra Strength) 1,000 mg PO Q6HPRN PRN pain 06/09/18
docusate sodium 100 mg capsule 100 mg PO DAILYPRN PRN stool softner 06/09/18
fluticasone propionate 50 mcg/actuation nasal spray,suspension 2 spray intranasal DAILYPRN PRN allergies 06/09/18
lorazepam 1 mg tablet 1 mg PO HS Mental Health/Anxiety 06/09/18
polyvinyl alcohol-povidone (PF) 1.4 %-0.6 % eye drops in a dropperette (Refresh Classic (PF)) 1 drops OPHTHALMIC HSPRN PRN dry eyes 06/09/18
albuterol sulfate 90 mcg/actuation aerosol inhaler (Ventolin HFA) 1 puff inhalation Q6HPRN PRN sob ##1 06/11/18
aspirin 81 mg chewable tablet 81 mg PO DAILY 08/30/21
buspirone 5 mg tablet 5 mg PO BID Mental Health/Anxiety 11/09/23
levetiracetam 500 mg tablet (Keppra) 500 mg PO BID Seizures 11/09/23
esomeprazole magnesium 40 mg capsule,delayed release (Nexium) 40 mg PO DAILY High Cholesterol 11/10/23
lisinopril 20 mg tablet 20 mg PO BID #60 tabs 11/11/23
Home Medication Changes
New Medications: lisinopril 20 mg tablet 20 mg PO BID #60 tabs 11/11/23
Discontinued Medications: Hydrochlorothiazide
Pending Results: No
[2023-11-11 18:30] VITALS: BP 154/76
--- NOTE | 2023-11-11 19:43 | W.PN.UPDATE ---
Update Note
Progress Note Update
78 yr old lady with h/o HTN, anxiety d/o who was admitted with c/o transient speech impediment(recurrent episodes) secondary to uncontrolled HTN, who had a MRI study of the brain which revealed small vessel disease and its sequelae.
Recommendation: Strict BP control. Aspirin 81 mg. Lipitor 10mg
== END 2023-11-11 19:28 | disposition home or self-care (01) | DRG 305 ==
LOC: 4 WEST ACU 21:58
PROVIDERS: Registered Nurse; ADMITTING PHYSICIAN Internal Medicine; ATTENDING PHYSICIAN Internal Medicine; CONSULT PHYSICIAN Psychiatry & Neurology Psychiatry; EMERGENCY PHYSICIAN Emergency Medicine; FAMILY PHYSICIAN Family Medicine; OTHER PHYSICIAN Psychiatry & Neurology Neurology; REFERRING PHYSICIAN Student in an Organized Health Care Education/Training Program
DX: I16.1 Hypertensive emergency (principal); E87.1 Hypo-osmolality and hyponatremia; I67.89 Other cerebrovascular disease; Z68.41 Body mass index [BMI] 40.0-44.9, adult; I12.9 Hypertensive chronic kidney disease with stage 1 through stage 4 chronic kidney disease, or unspecified chronic kidney disease; N18.31 Chronic kidney disease, stage 3a; E78.00 Pure hypercholesterolemia, unspecified; K21.9 Gastro-esophageal reflux disease without esophagitis; R47.89 Other speech disturbances; I44.0 Atrioventricular block, first degree; J45.909 Unspecified asthma, uncomplicated; E03.9 Hypothyroidism, unspecified; G40.909 Epilepsy, unspecified, not intractable, without status epilepticus; F41.9 Anxiety disorder, unspecified; D63.1 Anemia in chronic kidney disease; M54.30 Sciatica, unspecified side; E66.9 Obesity, unspecified; Z79.82 Long term (current) use of aspirin; Z79.890 Hormone replacement therapy; Z79.899 Other long term (current) drug therapy; Z88.6 Allergy status to analgesic agent
CPT/HCPCS: 70450; 70544; 70548; 70551; 80048; 80061; 83036; 85025; 85027; 92523; 93005; 96374; 97161; 97165; 99285; A9585

== ENCOUNTER → 2023-11-12 13:51 | Outpatient (REF) | payer MEDICARE, OTHER, SELFPAY | LOC: WDC 13:51 | PROVIDERS: ATTENDING PHYSICIAN Obstetrics & Gynecology Gynecology; FAMILY PHYSICIAN Family Medicine | DX: N64.4 Mastodynia (principal) | CPT/HCPCS: 76642; 77062; 77066 ==

== ENCOUNTER 2023-11-26 17:45 | Emergency (ER) | payer MEDICARE, OTHER, SELFPAY ==
[2023-11-26 17:56] VITALS: BP 155/90
--- NOTE | 2023-11-26 20:20 | ED.GENMED ---
History of Present Illness
General
Chief Complaint: Fall
Source: patient
Exam Limitations: none
Time Seen by Provider: 11/26/23 18:45
Nursing documentation reviewed up to this point in time: agreed with
History of Present Illness
History of Present Illness:
Patient is a 78-year-old female with past known history of hypertension chronic back pain presents the ER for evaluation of head injury. Patient was going to urgent care to have her blood pressure checked and reports she felt weak in the legs and
fell back hitting the back of her head in the car door. She did not fall on the ground . urgent care recommended she come to the ER for CAT scan. She denies any loss of consciousness headache. She is not on blood thinners. No neck pain .she
reports this leg weakness is not new .she is not very active because of chronic back pain and has felt that she is gotten progressively weak due to lack of activity over the past several weeks. She denies any bowel or bladder incontinence. Denies
any numbness tingling. She reports that she just feels that her legs do not hold her well anymore.
reports they are only here for eval of head injury /ct recommended by urgent care.
Past History
Past History
ED Past Medical History: Asthma, GERD, HTN, Hypercholesterolemia, Hypothyroidism, Psychiatric (anxiety) and Other (Low back pain, obesity)
ED Past Surgical History: Cholecystectomy, Gynecological (Hysterectomy) and Other (Skin cancer, melanoma removal)
Social History
Tobacco: Non-smoker
Alcohol: Occasional (Rare EtOH use)
Personal:
Living: with family
Employment: Retired
Family History
Family History: Hypertension; Negative CAD
Review of Systems
Review of Systems
Allergies reviewed?: Yes
Other source history: family
All Other Systems: ROS reviewed and negative except as documented in HPI and ROS
Constitutional: Denies fever, fatigue or chills
EENT: Reports no symptoms
Respiratory: Reports no symptoms
Cardiac: Reports no symptoms
ABD/GI: Reports no symptoms; Denies nausea or vomiting
Musculoskeletal: Reports other (Patient feels that her bilateral legs are weak (not new ) )
Skin: Reports no symptoms
Neurological: Denies dizzy or headache
Psychiatric: Reports no symptoms
Phy Exam
General Physical Exam
General Presentation: no apparent distress
General age: appears stated age
General Skin: warm and dry
General Habitus: elderly and obese
General Mental: alert
Cardiovascular Exam
Cardiovascular Exam: regular rate/rhythm, no murmur and normal peripheral pulses
Pulmonary Exam
Pulmonary Exam: lungs clear and no respiratory distress
Neurological Exam
Neurological Exam: alert, oriented x3, no sensory deficits and other (Patient ambulated with steady gait slow but steady no objective leg weakness to bilateral lower extremities normal dorsiflexion plantarflexion normal distal sensation)
[place] Coma Scale
Eye Opening: Spontaneous
Verbal Response: Oriented
Motor Response: Obeys Commands
GCS Total Score: 15
Musculoskeletal Exam
Musculoskeletal Exam: full ROM
Skin Exam
Skin Exam: normal color and warm/dry
Psychiatric Exam
Psychiatric Exam: normal mood/affect
Course
Orders/Labs/Results
Orders:
Orders
11/26/23 18:04
CT Head W/o Iv Contrast Urgent
Comment:
Reason For Exam: fall, posterior head strike
Vital Signs
Initial and Last Documented VS:
Initial Vital Signs
Temp Pulse Resp BP Pulse Ox
97.9 F 59 18 155/90 99
11/26/23 17:56 11/26/23 17:56 11/26/23 17:56 11/26/23 17:56 11/26/23 17:56
Last Documented Vital Signs
Temp Pulse Resp BP Pulse Ox
97.9 F 59 16 155/90 99
11/26/23 17:56 11/26/23 17:56 11/26/23 20:31 11/26/23 17:56 11/26/23 17:56
MDM/Problems Addressed
MDM/Problems Addressed:
Patient is a 78-year-old female that was seen by urgent care for evaluation of head injury. Patient was going urgent care to get her blood pressure checked and followed back on her car hitting the back of her head on the car door. No loss of
consciousness out of the ground of headache no nausea vomiting neck pain. Patient reports she has had gradual which she feels is weakness in her lower extremities which is not new. She is not active due to chronic back pain. She feels that in
generally her legs are just too weak to carry her. She however has a normal steady gait normal strength on exam no deficits. No numbness tingling no bowel or bladder incontinence.
Her CAT scan is unremarkable she has no other complaints I did have a long conversation however with patient regarding the importance of following up with family doctor for this chronic leg weakness .She is well appearing in no distress stable for
d/c home.
Chronic conditions affecting care:
htn obesity chronic back pain
*Critical Care Note
Total Time (30-74mins, 75-104mins- exclusive of procedures): Not Applicable
ED Attending Note
-
Portions of this chart may have been created with voice recognition software.� Occasional wrong word or��sound alike� substitutions may have occurred due to the inherent limitations of voice recognition software.
Discharge Plan
Departure
Patient Disposition: Home (Routine Discharge)
Date of Disposition: 11/26/23
Time of Disposition: 20:30
Patient with high blood pressure during this ER visit?: Yes
Condition: Fair
Covid-19: Not Applicable
Discharge Problem:
Head injury
Instructions: Head injury in adults
Prescriptions:
No Action
atorvastatin 10 MG tablet
10 mg PO QPM
levothyroxine 50 MCG tablet
50 mcg PO DAILY
Patient Comments:
06/09/18 ss; pt takes BRAND NAME
cholecalciferol (vitamin D3) [Vitamin D3] 400 UNITS tablet
1,000 units PO DAILY
atenolol 50 MG tablet
50 mg PO BID
sucralfate 1 GM/10 ML suspension
1 gm PO DAILYPRN PRN (Reason: GERD)
ranitidine HCl 150 MG tablet
150 mg PO HSPRN PRN (Reason: acid reflux)
acetaminophen [Tylenol Extra Strength] 500 MG tablet
1,000 mg PO Q6HPRN PRN (Reason: pain)
docusate sodium 100 MG capsule
100 mg PO DAILYPRN PRN (Reason: stool softner)
lorazepam 1 MG tablet
1 mg PO HS
fluticasone propionate 1 SPRAY spray,suspension
2 spray intranasal DAILYPRN PRN (Reason: allergies)
Refresh Classic (PF) 10 DROPS dropperette
1 drops OPHTHALMIC HSPRN PRN (Reason: dry eyes)
albuterol sulfate [Ventolin HFA] 90 MCG/PUFF HFA aerosol inhaler
1 puff inhalation Q6HPRN PRN (Reason: sob) Qty: 1 0RF
Rx Instructions:
indication-asthma
aspirin 81 MG tablet,chewable
81 mg PO DAILY 0RF
levetiracetam [Keppra] 500 mg Tablet
500 mg PO BID
buspirone 5 mg Tablet
5 mg PO BID
esomeprazole magnesium [Nexium] 40 mg Capsule,Delayed Release(Dr/Ec)
40 mg PO DAILY
lisinopril 20 mg tablet
20 mg PO BID Qty: 60 0RF
Referrals:
Stefan Tijerina Jr., [Family Provider] -
Activity Restrictions/Additional Instructions:
Follow-up with your family doctor the next several days as discussed for further evaluatio of chronic leg weakness, high blood pressure .
Return if any worsening of symptoms
Interventions
Interventions:
*Risk Screen - Suicide Last Done: 11/26/23 18:38
*General Assessment Last Done: 11/26/23 18:38
*Neglect/Abuse Screening Last Done: 11/26/23 18:38
ED- Fall Risk Assessment Last Done: 11/26/23 18:38
*ED COVID-19 Vaccine History Last Done: 11/26/23 18:38
*Nursing Disposition Last Done: 11/26/23 20:31
ED-Musculoskeletal Assessment Last Done: 11/26/23 18:37
ED- Neurological Assessment Last Done: 11/26/23 18:37
ED-Skin Assessment Last Done: 11/26/23 18:37
Discharge Date and Time
Discharge Date/Time: 11/26/23 20:31
Print Language: LEBANESE
--- NOTE | 2023-11-26 20:31 | EDRN ---
pt refuses to have vitals retaken.
== END 2023-11-26 20:31 | disposition home or self-care (01) ==
LOC: EMR 17:45
PROVIDERS: EMERGENCY PHYSICIAN Emergency Medicine; FAMILY PHYSICIAN Family Medicine
DX: S09.90XA Unspecified injury of head, initial encounter (principal); R53.1 Weakness; W19.XXXA Unspecified fall, initial encounter; I10 Essential (primary) hypertension; K21.9 Gastro-esophageal reflux disease without esophagitis; J45.909 Unspecified asthma, uncomplicated; F41.9 Anxiety disorder, unspecified; M54.50 Low back pain, unspecified; E66.9 Obesity, unspecified; G89.29 Other chronic pain; E03.9 Hypothyroidism, unspecified; E78.00 Pure hypercholesterolemia, unspecified; Z85.820 Personal history of malignant melanoma of skin; Z79.82 Long term (current) use of aspirin; Z90.49 Acquired absence of other specified parts of digestive tract; Z88.6 Allergy status to analgesic agent
CPT/HCPCS: 99284; 70450

== ENCOUNTER 2023-12-06 17:30 | Emergency (ER) | payer MEDICARE, OTHER, SELFPAY ==
[2023-12-06 17:39] VITALS: BMI 44.3
[2023-12-06 17:50] LABS: Glucose - Point of Care 99 mg/dl (70-99)
[2023-12-06 17:51] VITALS: BP 168/92
--- NOTE | 2023-12-06 17:54 | ED.CVA ---
History of Present Illness
General
Chief Complaint: CVA/TIA Symptoms
Time Seen by Provider: 12/06/23 17:53
Onset of Stroke Symptoms
Onset of symptoms known: No
Time pt last seen normal is known: No
History of Present Illness
History of Present Illness:
HPI: The patient presents with word finding difficulties starting earlier today. This is a recurring problem for her. She had a similar episode back in October when she was admitted here. She also saw Phillip recently and at one point was told
that she has a cavernoma and was felt that her symptoms may be related to seizures and has been on 500 mg of Keppra. When she was admitted here last time she was given a dose of Plavix but was not continued on Plavix. She was hypertensive last
admission and her blood pressure medications were adjusted. She is no longer on hydrochlorothiazide as she was hyponatremic and her lisinopril was increased. Currently, the earlier word finding difficulties have resolved. She has trouble getting
into see her primary care doctor as well as neurology locally.
EXAM:
GENERAL: Well appearing in no distress
HEENT: Moist oral mucosa
CARDIOVASCULAR: No murmurs, normal heart rate, regular rhythm, No chest wall tenderness
PULMONARY: No respiratory distress, breath sounds are clear and equal
ABDOMEN: Soft with no peritoneal signs, no tenderness
NEUROLOGIC: Excellent strength all extremities, no coordination deficits
PSYCHIATRIC: Appropriate mental status, normal insight and judgement, appears somewhat anxious
EXTREMITIES: Nontender, no edema, moves all extremities equally
SKIN: No rash, no lesions
TIME OF INITIAL ENCOUNTER: 6:10 PM
NUMBER AND COMPLEXITY OF PROBLEMS ADDRESSED AT THE ENCOUNTER
� Chronic conditions affecting care: High blood pressure, hyperlipidemia
� Acute Exacerbation and/or Progression of Chronic Illness: This is a subacute and recurring problem
� Differential Diagnosis includes: TIA, CVA, anxiety, seizure
AMOUNT AND/OR COMPLEXITY OF DATA TO BE REVIEWED AND ANALYZED
� I performed an independent evaluation of and my interpretation is:
EKG: Sinus 64, left axis deviation, left bundle
CT:
X-rays:
Laboratory Studies: Hemoglobin 11.0 which is chronic, white count, chemistries unremarkable but GFR is 57 which is at baseline
Other:
� Review of other/old records: I reviewed the discharge summary from November 11, 2023�in the ED that admission blood pressure was over 200 and was given IV labetalol. Before that, the patient was having trouble with word finding.
She apparently had a similar episode 2 years ago and on a follow-up visit Phillip placed on Keppra. 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
estimated diameter reduction of approximately 50% '. Last admission her lisinopril was increased to 20 mg twice daily. Brain MRI last admission showed no evidence for acute or subacute infarction however there was 'a new abnormality consistent
with focus of microhemorrhage in the left anterior appearing median frontal lobe'. The patient had an unremarkable brain CT 11/09/2023 and 08/29/2021.
� Clinical information was obtained by an independent historian: I spoke to the at bedside
� Prescriptions/Medications Considered but not given:
� Further testing considered but not performed:
RISK OF COMPLICATIONS AND/OR MORBIDITY OR MORTALITY OF PATIENT MANAGEMENT
� Social determinants of health affecting care:
� Discussion with other providers: Discussed with Dr. Carroll
� Escalation of care including admission/observation vs risk of discharge considered: The patient's NIH stroke scale is currently 0. She had word finding difficulties earlier today. She has had similar episodes over the last
couple of years. She has had extensive workup 1 month ago. Discussed case with neurology on-call, Dr. Carroll. She recommends increasing Keppra dosing to [address] imaging is unchanged from prior. Repeat blood pressure 160/70
manually taken by me prior to discharge. Although she reports feeling somewhat scared and apprehensive about going home, there is no clear indication for admission to the hospital at this time.
Past History
Past History
ED Past Medical History: Asthma, GERD, HTN, Hypercholesterolemia, Hypothyroidism, Psychiatric (anxiety) and Other (Low back pain, obesity)
ED Past Surgical History: Cholecystectomy, Gynecological (Hysterectomy) and Other (Skin cancer, melanoma removal)
Social History
Tobacco: Non-smoker
Alcohol: Occasional (Rare EtOH use)
Personal:
Living: with family
Employment: Retired
Family History
Family History: Hypertension; Negative CAD
Phy Exam
Physical Exam
Physical Exam:
See HPI
Course
Orders/Labs/Results
Orders:
Orders
12/06/23 17:37
Electrocardiogram (*1) Urgent
Reason for Study: Chest Pain
Cardiac Monitoring- Treatment ONCE
EKG- Treatment ONCE
IV Insert/Care/Rem.- Treatment PRN
12/06/23 17:53
Complete Blood Count/With Diff Urgent
Comprehensive Metabolic Panel Urgent
PT/INR [Prothrombin Time] Urgent
Troponin I Urgent
12/06/23 18:18
CT Head W/o Iv Contrast Urgent
Comment:
Reason For Exam: recurring MCDANIEL, prior 'microbleed by MRI', exp aphas
12/06/23 18:54
Acetaminophen [Tylenol] 1,000 mg PO NOW STA
12/06/23 20:07
Levetiracetam [Keppra] 750 mg PO NOW STA
Abnormal Lab Results
12/06/23
17:53
RBC 3.81 L 10^6/uL
(4.20-5.40)
Hgb 11.0 L g/dL
(12.0-16.0)
Hct 31.9 L %
(37.0-47.0)
MPV 10.9 H fL
(7.4-10.4)
Absolute Neuts (auto) 6.7 H 10^3/uL
(1.4-6.5)
Absolute Monos (auto) 0.7 H 10^3/uL
(0.1-0.6)
Total Protein 6.1 L g/dl
(6.3-8.2)
12/06/23 17:53
12/06/23 17:53
Vital Signs
Initial and Last Documented VS:
Initial Vital Signs
Temp Pulse Resp Pulse Ox
97.4 F 65 18 97
12/06/23 17:41 12/06/23 17:41 12/06/23 17:41 12/06/23 17:41
Last Documented Vital Signs
Temp Pulse Resp BP Pulse Ox
97.4 F 70 16 160/70 98
12/06/23 17:41 12/06/23 20:04 12/06/23 20:04 12/06/23 20:04 12/06/23 20:04
*Critical Care Note
Total Time (30-74mins, 75-104mins- exclusive of procedures): Not Applicable
ED Attending Note
-
Portions of this chart may have been created with voice recognition software.� Occasional wrong word or��sound alike� substitutions may have occurred due to the inherent limitations of voice recognition software.
Discharge Plan
Departure
Patient Disposition: Home (Routine Discharge)
Date of Disposition: 12/06/23
Time of Disposition: 20:07
Patient with high blood pressure during this ER visit?: Yes
Discharge Problem:
Headache
Instructions: Headache, Adult ED
Prescriptions:
New
levetiracetam [Keppra] 750 mg tablet
750 mg PO BID Qty: 60 0RF
No Action
atorvastatin 10 MG tablet
10 mg PO QPM
levothyroxine 50 MCG tablet
50 mcg PO DAILY
Patient Comments:
06/09/18 ss; pt takes BRAND NAME
cholecalciferol (vitamin D3) [Vitamin D3] 400 UNITS tablet
1,000 units PO DAILY
atenolol 50 MG tablet
50 mg PO BID
sucralfate 1 GM/10 ML suspension
1 gm PO DAILYPRN PRN (Reason: GERD)
ranitidine HCl 150 MG tablet
150 mg PO HSPRN PRN (Reason: acid reflux)
acetaminophen [Tylenol Extra Strength] 500 MG tablet
1,000 mg PO Q6HPRN PRN (Reason: pain)
docusate sodium 100 MG capsule
100 mg PO DAILYPRN PRN (Reason: stool softner)
lorazepam 1 MG tablet
1 mg PO HS
fluticasone propionate 1 SPRAY spray,suspension
2 spray intranasal DAILYPRN PRN (Reason: allergies)
Refresh Classic (PF) 10 DROPS dropperette
1 drops OPHTHALMIC HSPRN PRN (Reason: dry eyes)
albuterol sulfate [Ventolin HFA] 90 MCG/PUFF HFA aerosol inhaler
1 puff inhalation Q6HPRN PRN (Reason: sob) Qty: 1 0RF
Rx Instructions:
indication-asthma
aspirin 81 MG tablet,chewable
81 mg PO DAILY 0RF
levetiracetam [Keppra] 500 mg Tablet
500 mg PO BID
buspirone 5 mg Tablet
5 mg PO BID
esomeprazole magnesium [Nexium] 40 mg Capsule,Delayed Release(Dr/Ec)
40 mg PO DAILY
lisinopril 20 mg tablet
20 mg PO BID Qty: 60 0RF
Referrals:
Stefan Tijerina Jr., DO [Family Provider] -
Shirin Carroll DO [Active] - Follow up in 2-3 days
Activity Restrictions/Additional Instructions:
Your CAT scan again suggests a cavernoma however there is no worsening or change tonight. Your blood pressure is most recently 160/70. Be sure to continue taking your blood pressure medication. Your basic blood work was normal. Tomorrow, I
recommend that you take 1 1/2 of your Keppra twice tomorrow (to equal 750mg twice tomorrow).
Interventions
Interventions:
*Risk Screen - Suicide Last Done: 12/06/23 17:38
*General Assessment Last Done: 12/06/23 17:38
*Neglect/Abuse Screening Last Done: 12/06/23 17:38
ED- Fall Risk Assessment Last Done: 12/06/23 17:38
*ED COVID-19 Vaccine History Last Done: 12/06/23 17:38
ED- Pulmonary Assessment Last Done: 12/06/23 19:55
ED- Neurological Assessment Last Done: 12/06/23 17:56
ED- Cardiac Assessment Last Done: 12/06/23 19:55
ED Swallowing Screen Last Done: 12/06/23 18:42
Discharge Date and Time
Print Language: GEORGIAN
[2023-12-06 17:59] LABS: % Basophils 0.3 % (0-2); % Eosinophils 0.7 % (0-6); % Immature Granulocytes 0.4 % (0-0.5); % Lymphocytes 22.4 % (20.5-51.1); % Monocytes 6.7 % (1.7-9.3); % Neutrophils 69.5 % (42.2-75.2); Absolute Eosinophils 0.1 10^3/uL (0-0.7); Absolute Lymphocytes 2.2 10^3/uL (1.2-3.4); Absolute Monocytes 0.7 10^3/uL (0.1-0.6); Absolute Neutrophils 6.7 10^3/uL (1.4-6.5); Hematocrit 31.9 % (37.0-47.0); Mean Corp Hgb Conc. 34.5 g/dL (33.0-37.0); Mean Corpuscular Hgb 28.9 pg (27.0-31.0); Mean Corpuscular Volume 83.7 fL (81.0-99.0); Mean Platelet Volume 10.9 fL (7.4-10.4); Nucleated Red Blood Cells % 0 %; Platelet Count 192 10^3/uL (130-400); Red Blood Cell Count 3.81 10^6/uL (4.20-5.40); Red Cell Dist. Width 14.1 % (11.5-14.5); White Blood Cell Count 9.6 10^3/uL (4.8-10.8)
--- NOTE | 2023-12-06 18:01 | EDRN ---
Dr. Reese in rom w/ pt.
[2023-12-06 18:13] LABS: ALT (SGPT) 16 U/L (0-35); AST (SGOT) 21 U/L (14-36); Albumin 3.7 g/dl (3.5-5.0); Alkaline Phosphatase 103 U/L (38-126); Blood Urea Nitrogen 17 mg/dl (7-17); Calcium 9.3 mg/dl (8.4-10.2); Carbon Dioxide 29 mmol/L (22-30); Chloride 100 mmol/L (98-107); Estimated Creatinine Clearance 59 ml/min; Glucose 97 mg/dl (70-99); Potassium 3.8 mmol/L (3.5-5.1); Sodium 137 mmol/L (135-145); Total Bilirubin 0.5 mg/dl (0.2-1.3); Total Protein 6.1 g/dl (6.3-8.2); eGFR 57.31
[2023-12-06 18:16] LABS: INR 0.98; PT 12.7 Sec (11.4-14.6)
[2023-12-06 18:23] LABS: Troponin I 0.015 ng/ml
[2023-12-06 18:30] VITALS: BP 182/100
--- NOTE | 2023-12-06 18:33 | EDRN ---
Pt OOB to BR at this time.
[2023-12-06] MEDS: TYLENOL 1000 MG PO (19:52)
[2023-12-06 20:04] VITALS: BP 160/70
[2023-12-06] MEDS: KEPPRA 750 MG PO (20:38)
== END 2023-12-06 20:53 | disposition home or self-care (01) ==
LOC: EMR 17:30
PROVIDERS: Emergency Medicine; EMERGENCY PHYSICIAN Emergency Medicine; FAMILY PHYSICIAN Family Medicine
DX: R51.9 Headache, unspecified (principal); R47.81 Slurred speech; I10 Essential (primary) hypertension; E78.00 Pure hypercholesterolemia, unspecified; E03.9 Hypothyroidism, unspecified; F41.9 Anxiety disorder, unspecified; J45.909 Unspecified asthma, uncomplicated; K21.9 Gastro-esophageal reflux disease without esophagitis; E66.9 Obesity, unspecified; Z85.820 Personal history of malignant melanoma of skin; Z90.49 Acquired absence of other specified parts of digestive tract; Z88.6 Allergy status to analgesic agent
CPT/HCPCS: 99284; 70450; 80053; 82962; 84484; 85025; 85610; 93005

== ENCOUNTER 2023-12-10 18:30 | Emergency (ER) | payer MEDICARE, OTHER, SELFPAY ==
[2023-12-10 19:04] VITALS: BP 190/90
[2023-12-10 19:05] VITALS: BP 200/0
--- NOTE | 2023-12-10 21:33 | ED.GENMED ---
History of Present Illness
General
Chief Complaint: Headache
Source: patient
Exam Limitations: none
Time Seen by Provider: 12/10/23 20:46
History of Present Illness
History of Present Illness:
This is a 78 year old female that comes in and states that she just needs her BP checked. States that this is the third time that she is here. States that she has had hypertension and a headache but has no headache at this time. States that she has
had episodes where she looses her speech for a short time and then it comes back. States that this happened 2 weeks ago and 2 days ago. Patient woke up from a Nap on Friday with slurred speech at 5:30pm and was seen here for CT scan and was
discharged. States that this all started about 6 weeks ago and she has seen her PCP. States that she has an appointment with the Record Changer Assembler on the and she is seeing her neurologist tomorrow. States that she takes Atenolol but she doesn't know
the dosage and lisinopril 20mg BID. States that she has not taken her night time medication and that she just wants her BP checked. States that she has had very slight nausea occasionally. Denies any fever, chills, chest pain, some SOB with her
nerves, abd pain, vomiting, diarrhea, urinary burning. Denies any headache or dizziness.
Past History
Past History
ED Past Medical History: Asthma, Cancer (Skin CA), GERD, HTN, Hypercholesterolemia, Hypothyroidism, Psychiatric (anxiety) and Other (Low back pain, obesity, Seizure are questionable, )
ED Past Surgical History: Cholecystectomy, Gynecological (Hysterectomy), Orthopedic (Finger surgery Right 5th ) and Other (Skin cancer, melanoma removal)
Social History
Tobacco: Non-smoker
Alcohol: Occasional (Rare EtOH use)
Personal:
Living: with family
Employment: Retired
Family History
Family History: Hypertension; Negative CAD
Review of Systems
Review of Systems
All Other Systems: ROS reviewed and negative except as documented in HPI and ROS
Constitutional: Reports no symptoms; Denies fever or chills
EENT: Reports no symptoms
Respiratory: Reports no symptoms; Denies cough or trouble breathing
Cardiac: Reports no symptoms; Denies chest pain
ABD/GI: Reports nausea (Very slight occasionally); Denies abdominal pain, vomiting or diarrhea
: Reports no symptoms; Denies dysuria, frequency or urgency
Musculoskeletal: Reports no symptoms
Skin: Reports no symptoms
Neurological: Reports no symptoms; Denies dizzy or headache
Psychiatric: Reports no symptoms
Phy Exam
General Physical Exam
General Presentation: well appearing and no apparent distress
General age: appears stated age
General Skin: warm and dry
General Habitus: elderly and obese
General Mental: alert
General Hydration: appears well hydrated
ENT Exam
ENT Exam: pharynx normal and neck supple
Eye Exam
Eye Exam: EOMI
Cardiovascular Exam
Cardiovascular Exam: regular rate/rhythm and normal peripheral pulses
Pulmonary Exam
Pulmonary Exam: lungs clear, no respiratory distress, no rales, chest non tender, no crackles, no rhonchi, no wheezing and no cough
Gastrointestinal Exam
Gastrointestinal Exam: normal bowel sounds, non tender, soft, no organomegaly, no pulsatile mass and non distended
Musculoskeletal Exam
Musculoskeletal Exam: full ROM and no edema
Skin Exam
Skin Exam: normal color, warm/dry, no rash and no petechia
Psychiatric Exam
Psychiatric Exam: normal mood/affect
Course
Vital Signs
Initial and Last Documented VS:
Initial Vital Signs
Temp Pulse Resp Pulse Ox
98.0 F 58 18 99
12/10/23 18:47 12/10/23 18:47 12/10/23 18:47 12/10/23 18:47
Last Documented Vital Signs
Temp Pulse Resp BP Pulse Ox
98.0 F 58 18 182/72 99
12/10/23 18:47 12/10/23 18:47 12/10/23 18:47 12/10/23 21:49 12/10/23 18:47
MDM/Problems Addressed
Differential Diagnosis Includes:
Hypertension
MDM/Problems Addressed:
This is a 78 year old female that comes in just wanting her BP checked. States that she does not have a headache at this time but just wanted her BP check. States that she just had Blood work and CT of her head on Friday here. States that she is
seeing her Neurologist tomorrow and has an appointment with the Record Changer Assembler.
Will check patient BP. Patient BP was 182/72 right and 183/82 left. Will have patient go home and take her Lisinopril. Patient to return with any concerns .
Chronic conditions affecting care: HTN
Acute Exacerbation and/or Progression of Chronic Illness: HTN
*Pulse Oximetry
Patient hypoxic: no
*EKG
Interpreted by ED Provider?: NA
Rate: EKG- N/A
*Interactive Web Developer Interpretation
Rate: Interactive Web Developer- N/A
*Critical Care Note
Total Time (30-74mins, 75-104mins- exclusive of procedures): Not Applicable
ED Attending Note
-
Portions of this chart may have been created with voice recognition software.� Occasional wrong word or��sound alike� substitutions may have occurred due to the inherent limitations of voice recognition software.
Discharge Plan
Departure
Patient Disposition: Home (Routine Discharge)
Date of Disposition: 12/10/23
Time of Disposition: 21:33
Patient with high blood pressure during this ER visit?: No
Condition: Good
Covid-19: Not Applicable
Discharge Problem:
Hypertension
Instructions: High Blood Pressure ED, BLOOD PRESSURE
Prescriptions:
No Action
atorvastatin 10 MG tablet
10 mg PO QPM
levothyroxine 50 MCG tablet
50 mcg PO DAILY
Patient Comments:
06/09/18 ss; pt takes BRAND NAME
cholecalciferol (vitamin D3) [Vitamin D3] 400 UNITS tablet
1,000 units PO DAILY
atenolol 50 MG tablet
50 mg PO BID
sucralfate 1 GM/10 ML suspension
1 gm PO DAILYPRN PRN (Reason: GERD)
ranitidine HCl 150 MG tablet
150 mg PO HSPRN PRN (Reason: acid reflux)
acetaminophen [Tylenol Extra Strength] 500 MG tablet
1,000 mg PO Q6HPRN PRN (Reason: pain)
docusate sodium 100 MG capsule
100 mg PO DAILYPRN PRN (Reason: stool softner)
lorazepam 1 MG tablet
1 mg PO HS
fluticasone propionate 1 SPRAY spray,suspension
2 spray intranasal DAILYPRN PRN (Reason: allergies)
Refresh Classic (PF) 10 DROPS dropperette
1 drops OPHTHALMIC HSPRN PRN (Reason: dry eyes)
albuterol sulfate [Ventolin HFA] 90 MCG/PUFF HFA aerosol inhaler
1 puff inhalation Q6HPRN PRN (Reason: sob) Qty: 1 0RF
Rx Instructions:
indication-asthma
aspirin 81 MG tablet,chewable
81 mg PO DAILY 0RF
levetiracetam [Keppra] 500 mg Tablet
500 mg PO BID
buspirone 5 mg Tablet
5 mg PO BID
esomeprazole magnesium [Nexium] 40 mg Capsule,Delayed Release(Dr/Ec)
40 mg PO DAILY
lisinopril 20 mg tablet
20 mg PO BID Qty: 60 0RF
levetiracetam [Keppra] 750 mg tablet
750 mg PO BID Qty: 60 0RF
Referrals:
Stefan Tijerina Jr. DO [Family Provider] -
Activity Restrictions/Additional Instructions:
As discussed, your BP at this time is 182/72 in the right and 183/82 in the left arm. Please take your Lisinopril tonight as directed. Follow up tomorrow with the Neurologist and also see the willower for further evaluation. IF YOU HAVE ANY
OTHER CONCERNS PLEASE RETURN TO THE EMERGENCY ROOM.
Interventions
Interventions:
*Risk Screen - Suicide Last Done: 12/10/23 21:50
*General Assessment Last Done: 12/10/23 21:49
*Neglect/Abuse Screening Last Done: 12/10/23 21:49
ED- Fall Risk Assessment Last Done: 12/10/23 21:51
*ED COVID-19 Vaccine History Last Done: 12/10/23 21:50
*Nursing Disposition Last Done: 12/10/23 21:54
ED- Neurological Assessment Last Done: 12/10/23 21:51
Discharge Date and Time
Discharge Date/Time: 12/10/23 21:45
Print Language: SWISS
[2023-12-10 21:49] VITALS: BP 182/72
== END 2023-12-10 21:45 | disposition home or self-care (01) ==
LOC: EMR 18:30
PROVIDERS: EMERGENCY PHYSICIAN Student in an Organized Health Care Education/Training Program; FAMILY PHYSICIAN Family Medicine
DX: I10 Essential (primary) hypertension (principal); R11.0 Nausea; R47.81 Slurred speech; E78.00 Pure hypercholesterolemia, unspecified; E03.9 Hypothyroidism, unspecified; F41.9 Anxiety disorder, unspecified; K21.9 Gastro-esophageal reflux disease without esophagitis; J45.909 Unspecified asthma, uncomplicated; Z85.820 Personal history of malignant melanoma of skin; E66.9 Obesity, unspecified; Z90.49 Acquired absence of other specified parts of digestive tract; Z79.899 Other long term (current) drug therapy; Z88.6 Allergy status to analgesic agent
CPT/HCPCS: 99281

== ENCOUNTER 2023-12-15 15:35 | Inpatient (IN) | payer MEDICARE, OTHER, SELFPAY ==
[2023-12-15] VITALS (31 sets, daily range): BP systolic 132–229; BP diastolic 50–128; BMI 43.0; BMI 42.7
[2023-12-15] MEDS: TRANDATE 10 MG IV (11:45)
[2023-12-15 12:15] LABS: Hematocrit 36.1 % (37.0-47.0); Hemoglobin 12.3 g/dL (12.0-16.0); Mean Corp Hgb Conc. 34.1 g/dL (33.0-37.0); Mean Corpuscular Hgb 29.1 pg (27.0-31.0); Mean Corpuscular Volume 85.3 fL (81.0-99.0); Mean Platelet Volume 11.1 fL (7.4-10.4); Platelet Count 223 10^3/uL (130-400); Red Blood Cell Count 4.23 10^6/uL (4.20-5.40); White Blood Cell Count 14.2 10^3/uL (4.8-10.8)
[2023-12-15 12:28] LABS: INR 0.94; PT 12.3 Sec (11.4-14.6)
[2023-12-15 12:29] LABS: APTT 35.6 Sec (23.4-35.0)
[2023-12-15 12:35] LABS: Blood Urea Nitrogen 17 mg/dl (7-17); Calcium 9.2 mg/dl (8.4-10.2); Carbon Dioxide 32 mmol/L (22-30); Chloride 98 mmol/L (98-107); Estimated Creatinine Clearance 65 ml/min; Glucose 126 mg/dl (70-99); Potassium 3.9 mmol/L (3.5-5.1); Sodium 138 mmol/L (135-145); eGFR > 60.00
--- NOTE | 2023-12-15 12:48 | ED.GENMED ---
History of Present Illness
General
Chief Complaint: Headache
Source: patient
Exam Limitations: none
Time Seen by Provider: 12/15/23 11:43
History of Present Illness
History of Present Illness:
Patient with history of hypertension, presents to ED secondary to worsening headache, associated with shortness of breath, along with nausea and vomiting. Patient was admitted and treated for similar symptoms 1 month ago. Since then, patient has a
number of similar episodes, requiring evaluation in the ED as well as outpatient imaging studies. Denies dizziness. Denies loss of sensation or weakness. Denies chest pain. Denies difficulty with speech. Denies recent change in diet. Denies
recent illness.
Past History
Past History
ED Past Medical History: Asthma, Cancer (Skin CA), GERD, HTN, Hypercholesterolemia, Hypothyroidism, Psychiatric (anxiety) and Other (Low back pain, obesity, Seizure are questionable, )
ED Past Surgical History: Cholecystectomy, Gynecological (Hysterectomy), Orthopedic (Finger surgery Right 5th ) and Other (Skin cancer, melanoma removal)
Social History
Tobacco: Non-smoker
Alcohol: Occasional (Rare EtOH use)
Personal:
Living: with family
Employment: Retired
Family History
Family History: Hypertension; Negative CAD
Review of Systems
Review of Systems
Allergies reviewed?: Yes
All Other Systems: ROS reviewed and negative except as documented in HPI and ROS
Constitutional: Reports no symptoms
Respiratory: Reports trouble breathing
Cardiac: Reports no symptoms; Denies chest pain
ABD/GI: Reports nausea and vomiting; Denies abdominal pain
Skin: Reports no symptoms
Neurological: Reports headache; Denies dizzy or weakness
Phy Exam
Physical Exam
Physical Exam:
Physical Exam
General: mild distress, acutely ill. afebrile. overweight. hypertensive
Head: nc/at. eomi
Neck: supple. normal range of motion.
Heart: s1/s2 regular rate and rhythm, no murmur. equal radial pulses.
Lungs: no acute respiratory distress. clear bilaterally
Abdomen: normal bowel sounds. not tender.
Neuro: alert and oriented. no focal neurological deficits
Skin: no rash
Psychiatric: well kept. interactive and cooperative
Extremities: LE b/l edema, nonpitting. no calf tenderness.
Course
Orders/Labs/Results
Orders:
Orders
12/15/23 11:33
Electrocardiogram (*1) Urgent
Reason for Study: Other
Other Reason for Exam: nausea and HTN
EKG- Treatment ONCE
12/15/23 11:[address] [CT Head W/o Iv Contrast] Urgent
Comment: known cavernoma
Reason For Exam: headache
12/15/23 11:43
Labetalol HCl [Trandate] 20 mg .ROUTE .STK-MED ONE
12/15/23 11:44
Labetalol HCl [Trandate] 10 mg IV NOW STA
12/15/23 11:55
Basic Metabolic Panel Urgent
Complete Blood Count/No Diff Urgent
Magnesium Urgent
NT-proBNP Urgent
PTT Urgent
Prothrombin Time Urgent
TSH Reflex To Free T4 Urgent
12/15/23 12:45
Nicardipine 40 mg/200 ml [Cardene] 40 mg in 200 ml IV PER PROTOCOL
Initial dose in mg/hr, then titrate:: 5
Titrate to keep:: SBP 140 - 160 mmHg
Titrate by mg/hr:: 2.5 mg/hr
Frequency of titrations (minutes):: 5-15 minutes
Maximum dose in mg/hr:: 15
Begin to taper infusion when:: Remained at goal for 2hrs
Taper by mg/hr:: 2.5 mg/hr
Frequency of taper (minutes) if patient maintains goal:: every 15-30 minutes
Taper to off?: Yes
If infusion off & no longer maintaining goal:: Contact Provider
12/15/23 12:48
Add On- LAB Urgent
Tests Added?: PRO-BNP, magnesium, TSH to reflex free T4
12/15/23 12:49
CR Chest Portable - 1 View Urgent
Comment:
Reason For Exam: sob
Reason Study Needs to be Portable: Patient Unstable
12/15/23 12:56
Acetaminophen [Tylenol] 650 mg PO NOW STA
12/15/23 15:12
Admit/Transfer Patient As Directed
Co-Sign Provider:
Level of Care: Inpatient admission
Assign to:: Medical/Surgical
Physician / Group: Hospitalist
Transfer to: Medical/Surgical
Diagnosis: Hypertensive emergency
Reason for Hospitalization: Hypertensive emergency
Expected length of stay greater than two midnights?: Yes
ELOS- Estimated Length of Stay in days: 3
I certify the patient meets the requirements for IP care: Yes
PRN Pain Medication Management As Directed
May give lesser potent ordered pain med per pt: Yes
preference::
Protocol:: Medication orders for pain may be administered in a
manner that supports deferring to patient preference
when the pt is:
- Requesting an ordered lesser potent pain medication.
Least to most potent pain medications are defined
as: acetaminophen < NSAID < tramadol < opioids
(morphine, oxycodone, hydromorphone).
- Requesting a lesser dose of the same medication IF
ORDERED.
- Requesting a less intrusive route of administration
if both routes are prescribed by the provider (PO <
IV).
12/15/23 15:20
Advance Diet as Tolerated As Directed
Goal Diet: Sodium, 2 Gram
12/15/23 20:22
Acetaminophen [Tylenol] 1,000 mg PO Q6HPRN PRN
Atenolol [Tenormin] 50 mg PO BID
Atorvastatin [Lipitor] 40 mg PO QPM
Buspirone [Buspar] 5 mg PO BID
Enoxaparin Sodium [Lovenox] 40 mg SC QPM
12/15/23 20:22
DX Deep Vein Thrombosis Video Routine
12/15/23 21:00
Levetiracetam [Keppra] 750 mg PO BID
12/15/23 22:00
Lorazepam [Ativan] 1 mg PO HS
12/15/23 22:57
Urinalysis Reflex To Culture Urgent
Date Specimen was Collected: 12/15/23
Time Specimen was Collected: 22:24
12/16/23 06:00
Levothyroxine [Synthroid] 50 mcg PO DAILY @ 0600
12/16/23 08:00
Aspirin Chewable [Low Strength Aspirin] 81 mg PO DAILY
Lisinopril [Zestril] 20 mg PO DAILY
Pantoprazole [Protonix] 40 mg PO DAILY
Abnormal Lab Results
12/15/23
11:55
WBC 14.2 H 10^3/uL
(4.8-10.8)
Hct 36.1 L %
(37.0-47.0)
MPV 11.1 H fL
(7.4-10.4)
APTT 35.6 H Sec
(23.4-35.0)
Carbon Dioxide 32 H mmol/L
(22-30)
Glucose 126 H mg/dl
(70-99)
Magnesium 1.5 L mg/dl
(1.6-2.3)
12/15/23 11:55
12/15/23 11:55
Vital Signs
Initial and Last Documented VS:
Initial Vital Signs
Temp Pulse Resp BP Pulse Ox
97.9 F 75 20 229/81 95
12/15/23 11:27 12/15/23 11:27 12/15/23 11:27 12/15/23 11:27 12/15/23 11:27
Last Documented Vital Signs
Temp Pulse Resp BP Pulse Ox
98.2 F 69 18 152/60 95
12/16/23 08:04 12/16/23 09:00 12/16/23 08:04 12/16/23 08:43 12/16/23 08:04
MDM/Problems Addressed
MDM/Problems Addressed:
CT head : NAD.
Patient remains persistently hypertensive, despite treatment. As such, decision made to start patient on nicardipine infusion for better blood pressure control, as patient continually is experiencing nonspecific headache.
Critical care statement: A total of 40 minutes of critical care time was provided for this patient. This includes management of unstable vital signs, evaluation of the patient at bedside, reviewing the patient's pertinent medical records, review of
old EKGs and review of pertinent medical records. This time with separate from time utilized to perform the aforementioned documented procedures
*Critical Care Note
Total Time (30-74mins, 75-104mins- exclusive of procedures): 40 min
ED Attending Note
-
Portions of this chart may have been created with voice recognition software.� Occasional wrong word or��sound alike� substitutions may have occurred due to the inherent limitations of voice recognition software.
Discharge Plan
Departure
Patient Disposition: Admit
Date of Disposition: 12/15/23
Time of Disposition: 12:55
Admit to: IMU
Presentation/result/management discussed w/ accepting MD/DO: Hospitalist
Discharge Problem:
Hypertensive emergency, Headache
Interventions
Interventions:
*Risk Screen - Suicide Last Done: 12/15/23 11:34
*General Assessment Last Done: 12/15/23 11:34
*Neglect/Abuse Screening Last Done: 12/15/23 11:34
*ED COVID-19 Vaccine History Last Done: 12/15/23 11:34
*Nursing Disposition Last Done: 12/15/23 21:46
ED- Neurological Assessment Last Done: 12/15/23 11:49
Discharge Date and Time
Discharge Date/Time: 12/15/23 21:47
[2023-12-15] MEDS: TYLENOL 650 MG PO (13:06)
[2023-12-15] MEDS: CARDENE 200 IV (13:07)
[2023-12-15 14:26] LABS: Magnesium 1.5 mg/dl (1.6-2.3)
[2023-12-15 15:07] LABS: NT-proBNP 2860 pg/ml
--- NOTE | 2023-12-15 20:15 | HPS.HSE ---
Addendum entered and electronically signed by Itz Valdez MD 12/15/23 21:38:
Attending Addendum-
I performed a history and physical exam of the patient and discussed his management with the resident. I reviewed the resident's note and agree with the documented findings and plan of care CC/HPI- Patient with multiple recent visits to ED. Came in
today with due to elevated BP at home x 2 days and MCDANIEL. Per @ 260 SBP. Patient appears anxious. 'I can't get my appointments in time' States that was recently started on hydralazine prn 'its like water doesn't do anything' Complains
of MCDANIEL which is resolving with decrease in BP. Full 12 point ROS reviewed and negative except as documented Exam- vitals reviewed in EMR GEN-mild distress heart RRR lungs crackles at bases abd obese LE trace edema Plan:
# Hypertensive Emergency-
- head CT neg for bleed
- continue nicardipine gtt started in ED
- lower by 25% in first hour
- eventual normotensive over 24 hours
- cont lisinopril atenolol
- start hydralazine IV prn
- recent echo 07/12- ef 56%
- trend trops
# HFpEF
- lasix IV x 1
- reassess in am
- recent echo done and reviewed
- BMP in am 12/15
# Leukocytosis
- r/u UTI
- trend repeat cbc in am
# Hypomagnesemia
- replete
- check in am
# Anxiety
- cont chronic lorazepam q hs
- PDMP verified
# Hypothyroidism
- cont levothyroxine
# HLD- cont atovastatin
# Seizure D/O- cont keppra
# Depression- cont buspirone
# GERD- cont ranitidine and esmoprazole
Time spent coordinating care, review of plan of care with resident, personally reviewed previous records in EMR, med rec, labs, radiology, d/w nursing, family �- 76 mins
Original Note:
Family Physician
-
Family Physician: Stefan Tijerina Jr.
Chief Complaint
-
Headache, shortness of breath
History of Present Illness
Yany is a 78F with past medical history of hypertension, HLD, hypothyroidism, seizures, CKD, who presented to [place] ED 12/15/23 for headache and shortness of breath and found to be in hypertension emergency. Her headache started when she woke
up, and she feels it bilaterally. She has no changes in vision, sensitivity to light, neck stiffness, focal neurologic deficits. She also felt like she couldn't catch her breath. She has no coughing or wheezing. She did try using a flovent inhaler
at home, which did not help (she does not regularly require inhalers but has a flovent and albuterol inhaler at home that was prescribed when she had covid last year). She had nausea this morning and 3 episodes of emesis, but has been able to
tolerate PO solids and liquids since then. She reports that her hypertension was previously well controlled, until about 6 weeks ago when it increased significantly despite being diligent with her medications. She denies fevers, chills, chest pain,
palpitations, abdominal pain, dysuria, hematuria, weakness. She admits to increased urinary frequency.
Medical History
Past Medical History
Past Medical History: Reports Cancer, GERD, HTN, Hypercholesterolemia, Hypothyroidism, Seizures, Psychiatric and Other
Additional Past Medical History:
Hypertension
Hypothyroidism
HLD
GERD
Anxiety
Spinal stenosis
Seizures
CKD 3a
Past Surgical History: Reports Cholecystectomy, Gynocological, Orthopedic and Other
Additional Past Surgical History:
cholecystectomy
hysterectomy
ortho surgery 5th finger right
melanoma removal
Social History
Tobacco: Non-smoker
Alcohol: Occasional
Drug: None
Personal:
Living: With Family
Family History
Family History: Cancer (lung cancer, skin cancer), Diabetes and Hypertension
Allergies / Home Medications
Allergies reflects when Allergies were last updated in [employer].
Home Medications with original date entered in [employer]
Allergy/Medication List:
atenolol 50mg daily
hydralazine 10mg prn for systolic BP >160 up to 4x/day
baby aspirin
buspirone hcl 5mg tablet BID
esomeprazole magnesium 40mg daily
keppra 750mg BID
synthroid 50mcg daily
atorvastatin 40mg qhs
lorazepam 1mg qhs
Review of Systems
-
History Source: Patient
A 12 point ROS was completed and negative except as noted: Yes
Physical Exam
Vital Signs
Vital Signs
Temp Pulse Resp BP Pulse Ox
97.9 F 80 18 141/57 92
12/15/23 11:27 12/15/23 19:15 12/15/23 19:15 12/15/23 19:00 12/15/23 19:15
Physical Exam
General: Well Developed, Well Nourished, No Apparent Distress, Comfortable, Conversant and Obese
HEENT: NormoCephalic and Atraumatic
Respiratory: Clear and Non Labored Respirations
Cardiac: S1/S2, Regular Rhythm and Peripheral Edema (trace pedal edema symmetric bilaterally)
GI: Soft, Non Tender, Non Distended and Normal Bowel Sounds
Neuro: Awake, Alert, Oriented and No Motor Deficits
Psych: Calm
Laboratory Results
-
12/15/23 11:55
12/15/23 11:55
Laboratory Results
PT 12.3 Sec (11.4-14.6) 12/15/23 11:55
INR 0.94 12/15/23 11:55
APTT 35.6 Sec (23.4-35.0) H 12/15/23 11:55
Data Reviewed
-
Diagnostic Radiology: Image Personally Visualized and interpreted, Report Reviewed by me and Discussed with Physician
CT Scan: Report Reviewed by me and Discussed with Physician
Medical Tests (Nuc Med, Echo, EKG etc): Report Reviewed by me and Discussed with Physician
Lab Data: Labs Reviewed by me and Discussed with Physician
Impression/Plan
-
#hypertensive emergency
- Worsening BP control, resistant to outpatient management, now symptomatic
- BNP elevated at 2860
- Cardene infusion started in ED. Will transition to PO amlodipine 5mg daily.
- Continue home medications atenolol and lisinopril
- Stop home hydralazine in order to differentiate if headache is symptom of hypertension or medication side effect
- Keep systolic BP goal in 160s at this time and plan to slowly decrease.
- Will check troponins, LFTs, CMP
- Consider outpatient evaluation for PALOMO
#History of seizure disorder
- Continue home kepra 750mg BID
#CKD
- Cr normal, 0.9 on admission
#Hypomagnesemia
- Mg 1.5 on admission
- Will supplement magnesium
#Anxiety
- Continue home buspirone 5mg BID and lorazepam 1mg nightly
#GERD
- Continue home esmaprazole 40mg daily
#hyperlipidemia
- Continue atorvostatin 40mg daily
Full code
DVT ppx: lovenox
Diet: low Na diet
[2023-12-15] MEDS: NORVASC 5 MG PO (20:50)
[2023-12-15] MEDS: TYLENOL 1000 MG PO (20:50)
[2023-12-15] MEDS: TENORMIN 50 MG PO (20:50)
[2023-12-15] MEDS: LOVENOX 40 MG SC (20:51)
[2023-12-15] MEDS: KEPPRA 750 MG PO (20:52)
[2023-12-15] MEDS: BUSPAR 5 MG PO (20:52)
[2023-12-15] MEDS: LIPITOR 40 MG PO (20:52)
[2023-12-15] MEDS: MAGNESIUM OXIDE 500 MG PO (22:13)
[2023-12-15] MEDS: ATIVAN 1 MG PO (22:14)
[2023-12-15] MEDS: LASIX 40 MG IV (22:14)
--- NOTE | 2023-12-15 22:31 | PTCARENOTE ---
received patient from the ED. AAOx3. SALAMATOF. SR with a first degree 60s. bp 132/60. patient request BPs on R forearm due to pain on her upper arm. reviewed plan of care with patient and verbalized understanding. pills whole in applesauce. oob
independently, steady on her feet. call fournier within reach.
[2023-12-15 23:03] LABS: Urine Albumin 2+ (Neg - Trace); Urine Bilirubin Negative (Negative); Urine Character Clear (Clear); Urine Color Yellow; Urine Glucose Negative (Negative); Urine Ketone Negative (Negative); Urine Leukocyte 2+ (Negative); Urine Nitrite Negative (Negative); Urine Occult Blood Negative (Negative); Urine Urobilinogen Negative (Neg - 1+)
[2023-12-16] VITALS (13 sets, daily range): BP systolic 130–199; BP diastolic 55–75; BMI 42.2
[2023-12-16 01:00] LABS: Urine Squamous Cell >30 /LPF (Few); Urine Urothelial Cell >30 /LPF (FEW)
[2023-12-16 01:08] LABS: Urine Amorphous Seen
[2023-12-16 01:09] LABS: Urine Bacteria Many (Negative); Urine Red Blood Cell 0-2 /HPF (0-2); Urine White Cell 50-60 /HPF (0-5)
[2023-12-16] MEDS: TYLENOL 1000 MG PO ×2 (04:32→13:13)
[2023-12-16] MEDS: APRESOLINE 10 MG IV (04:33)
[2023-12-16 05:01] LABS: Hematocrit 32.3 % (37.0-47.0); Hemoglobin 11.3 g/dL (12.0-16.0); Mean Corpuscular Hgb 29.4 pg (27.0-31.0); Mean Corpuscular Volume 83.9 fL (81.0-99.0); Platelet Count 227 10^3/uL (130-400); Red Blood Cell Count 3.85 10^6/uL (4.20-5.40); Red Cell Dist. Width 13.9 % (11.5-14.5)
[2023-12-16] MEDS: NORVASC 5 MG PO (05:19)
[2023-12-16] MEDS: TENORMIN 50 MG PO ×2 (05:19→21:49)
[2023-12-16] MEDS: ZESTRIL 20 MG PO ×3 (05:19→21:49)
--- NOTE | 2023-12-16 05:22 | PTCARENOTE ---
Addendum entered by Elian Avila RN 12/16/23 05:58:
K 3.2 this morning. 40 PO K ordered by Melva Mejias MEDICAL AFFAIRS MANAGER; given, see mar.
Original Note:
patient rang c/o a headache. bp 199/67. HR 70s. PRN hydralazine 10 mg given. tylenol given as well, see mar.
blood pressure continued to be elevated. 191/70. updated Melva Mejias MEDICAL AFFAIRS MANAGER. give 0800 bp medications early per MEDICAL AFFAIRS MANAGER. Lisinopril, Norvasc and Atenolol given, see mar.
[2023-12-16 05:27] LABS: ALT (SGPT) 12 U/L (0-35); AST (SGOT) 20 U/L (14-36); Albumin 3.6 g/dl (3.5-5.0); Alkaline Phosphatase 101 U/L (38-126); Blood Urea Nitrogen 17 mg/dl (7-17); Calcium 9.1 mg/dl (8.4-10.2); Carbon Dioxide 32 mmol/L (22-30); Chloride 97 mmol/L (98-107); Estimated Creatinine Clearance 53 ml/min; Glucose 108 mg/dl (70-99); Magnesium 1.6 mg/dl (1.6-2.3); Potassium 3.2 mmol/L (3.5-5.1); Sodium 139 mmol/L (135-145); Total Bilirubin 0.6 mg/dl (0.2-1.3); Total Protein 6.1 g/dl (6.3-8.2); eGFR 51.11
[2023-12-16] MEDS: KCL 40 MEQ PO (05:44)
--- NOTE | 2023-12-16 07:05 | W.PN.HOSP.TC ---
Addendum entered and electronically signed by Itz Valdez MD 12/16/23 20:12:
Attending Addendum-
I saw and evaluated the patient. I reviewed the resident�s note and agree with findings and plan as documented in the resident�s note. Sub: BP elevated overnight. Patient is a poor historian. States she has intermittant dizziness and MCDANIEL. Unable to
correlate sxs with BP. Hydralazine given with good effect. Full 12 point ROS reviewed and negative except as documented Exam: Vitals reviewed in chart GEN-NAD heart RRR lungs crackles at bases abd obese LE trace edema Neuro word finding difficulty,
MS 08/23 Psych anxious appearing Plan:
# Hypertensive Emergency-
- head CT neg for bleed
- cards c/s - appreciate input start Aldactone
- additional IV lasix given- will likley need to require daily
- cont lisinopril atenolol
- cont hydralazine IV prn
- repeat echo
- secondary HTN workup in process
- trend trops
# Non ischemic Myocardial Injury
- troponin trending down
- likely from HTN emergency
- repeat echo
- cards c/s
# HFpEF
- cont lasix IV
- reassess daily
- monitor strict Is and Os, daily weights, fluid restrict
- repeat echo
- BMP in am
# Hypokalemia
- replete mag
- replete aggressively as patient now on lasix
- added Aldactone
- repeat BMP in am
# Leukocytosis
- trending down
- repeat cbc in am
# Asymptomatic Bacteruria
- hold off on abx
- urine cx pend
# Hypomagnesemia
- resolved
- replete prn
# Anxiety
- cont chronic lorazepam q hs
- will likely benefit from SSRI
- PDMP verified
# Hypothyroidism
- cont levothyroxine
# HLD- cont atorvastatin
# Seizure D/O- cont keppra
# Depression- cont buspirone
# GERD- cont ranitidine and esmoprazole
Time spent coordinating care, review of plan of care with resident, personally reviewed records in EMR, med rec, consults, notes, labs, radiology, d/w nursing � 56 mins
Original Note:
Today's Communication/Plan
-
Continue aldactone, lasix, atenolol, lisinopril
Assessment / Plan
Assessment / Plan
78year old female with past medical history of hypertension, seizures, cavernous vascular hamartoma, history of chronic headache, anxiety, who presented to ED for headache, nausea, vomiting, shortness of breath and significantly elevated BPs.
#hypertensive emergency
- Worsening BP control over the past 6 weeks which has been resistant to outpatient management.
- BP on arrival 229/81. Head CT negative for bleed on admission.
- Was initially managed with nicardipine gtt hydralazine IV prn, home atenolol, home lisinopril with improvement in BPs to 190s/60s overnight.
- proBNP 2860, troponin mildly elevated at 0.067. EKG not concerning for acute ischemia.
- Cardiology consulted, appreciate recommendations.
- Continue home atenolol, home lisinopril, and aldactone, lasix which were both started today
- Repeat troponin in AM. Will check aldosterone, renin, 24 hour urine cortisol to evaluate secondary causes of hypertension
- Consider outpatient evaluation for PALOMO
#HFpEF
- Echo 12/15 EF 55-60%
- BMP on admission 2860
- chest xray on admission with mild pulmonary vascular congestion
- continue medical management as above
#Leukocytosis
#Asymptomatic bacteruria
- WBC 14.2 --> 11.0. Remains afebrile.
- urinalysis consistent with bacteruria, urine culture pending
- Given that she is asymptomatic, antibiotics are not indicated at this time
#hypokalemia
- Serum K 3.9 --> 3.2
- S/p K supplementation
- repeat BMP in AM
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
- Seizures manifest as difficulty getting words out or thinking of the correct word
- Continue home kepra 750mg BID
- Follows with Dr. Huerta at [facility]
#History of chronic nonintractable headache, unspecified headache type
- Per chart review of [facility] notes, headaches have been chronic issue
- Dr. Huerta ([place]) 01/2023 reports almost daily headaches typically triggered by anxiety
- Unclear at this time if headache is symptom of hypertension
#Anxiety
- Continue home buspirone 5mg BID and lorazepam 1mg nightly
- Will consider psychiatry consult and discuss with patient
#CKD
- Cr 0.9 on admission --> 1.1, eGFR 51
#Hypomagnesemia
- Mg 1.5 on admission --> 1.6
- s/p PO and IV Mg supplementation
- repeat serum mg tomorrow
#Cavernous hemangioma, cavernoma congenital vascular hamartoma- follows with Dr. Huerta ([facility]) and Dr. Bustamante ([facility])
#Multilevel spondylosis, spinal canal stenosis, radiculopathy- follows with Dr. Jacob ([facility])
#Stenosis of L middle cerebral artery- continue baby aspirin
#GERD- Continue home esmaprazole 40mg daily and ranitidine
#hyperlipidemia- Continue atorvostatin 40mg daily
Full code
DVT ppx: lovenox
Diet: low Na diet
Anticipated Discharge: 24 - 48 hours
Subjective/Interval History
-
Date of Service: December 16, 2023
Reports mild nausea and continued headache. The headache comes and goes, is on both sides, and the location of pain is variable. The tylenol provides partial relief. She reports coughing exacerbates her headache. Otherwise no relieving or
aggravating factors; it is not related to position, lights, sound. She reports nausea. Denies chest pain, shortness of breath, vomiting, dysuria. She no longer endorses increased urinary frequency, even after administration of lasix.
Objective Data
-
Labs:
Laboratory Results
12/16/23 12/16/23
04:22 04:23
WBC 11.0 H
Hgb 11.3 L
Hct 32.3 L
Plt Count 227
Sodium 139
Potassium 3.2 L
Chloride 97 L
Carbon Dioxide 32 H
BUN 17
Creatinine 1.1 H
Glucose 108 H
Calcium 9.1
Total Bilirubin 0.6
AST 20
ALT 12
Alkaline Phosphatase 101
Vital Signs:
Vital Signs
Temp Pulse Resp BP Pulse Ox
98.1 F 67 18 183/73 95
12/16/23 04:21 12/16/23 06:45 12/16/23 04:21 12/16/23 05:56 12/16/23 04:21
I&O
12/15/23 12/16/23 12/17/23
06:59 06:59 06:59
Intake Total 200 / 200
Output Total 1100 / 1100
Balance -900 / -900
Review of Systems
-
History Source: Patient
EENT: Denies Blurry Vision, Eye Pain or Decreased Vision
Respiratory: Denies Cough, Trouble Breathing or Wheezing
Cardiac: Denies Chest Pain, Palpitations or Orthopnea
Abdomen/GI: Reports Nausea; Denies Abdominal Pain, Vomiting or Diarrhea
Genitourinary: Reports Frequency; Denies Dysuria
Neuro: Reports Headache
Psych: Reports Anxious
Physical Exam
-
General: Well Developed, Well Nourished, No Apparent Distress, Comfortable, Conversant and Obese
HEENT: Normocephalic and Atraumatic
Respiratory: Clear to Auscultation and Non Labored Respirations; Negative Wheezes
Cardiac: Regular Rhythm and S1/S2
GI: Soft, Nontender, Nondistended and Normal Bowel Sounds
Musculoskeletal: Other (trace nonpitting edema lower extremities symmetric bilaterally)
Skin: Warm and Dry
Neuro: Awake, Alert and Oriented
Psych: Intact Judgement/Insight and Anxious
Data Reviewed
-
Medical Tests (Nuc Med, Echo etc): Report Reviewed by me
Labs: Labs Reviewed by me and Discussed with Physician
Old Records: Reviewed
--- NOTE | 2023-12-16 08:00 | PTCARENOTE ---
Assumed care of pt from prev nsg shift, pt AAOx3 w/a flat affect. Pt's BP elevated at 183/63 & pt reporting headache 06/28. This RN rechecked pt's BP using new forearm cuff & BP 152/60. HR in the 60's. Pt is SR w/1deg AVB & BBB on telemetry
monitoring. Pt took PO Synthroid for this RN, but stated she 'won't take her other morning meds until after 1000' as she does at home. Pt also reporting mild nausea, without vomiting. Resident notified & awaiting further orders. Pt w/call fournier
within reach.
[2023-12-16] MEDS: SYNTHROID 50 MCG PO (08:44)
[2023-12-16 08:50] LABS: Troponin I 0.067 ng/ml
[2023-12-16] MEDS: MAGNESIUM OXIDE 500 MG PO (10:38)
[2023-12-16] MEDS: LOW STRENGTH ASPIRIN 81 MG PO (10:38)
[2023-12-16] MEDS: MACROBID 100 MG PO (10:38)
[2023-12-16] MEDS: PROTONIX 40 MG PO (10:38)
[2023-12-16] MEDS: KEPPRA 750 MG PO ×2 (10:39→21:48)
[2023-12-16] MEDS: BUSPAR 5 MG PO ×2 (10:39→21:49)
--- NOTE | 2023-12-16 12:12 | CM ---
Reviewed chart. Met with Mrs. Gordillo to review discharge plans. She states prior to admission she resides with her spouse in a one story home with one step to enter. She states prior to admission she was independent with ambulation and adls. She
states she does sometimes use a single point cane. She states she has a single point cane and no other DME in the home. She states she has a prescription plan and uses [facility]. Medical work-up in progress. The discharge plan is to return
home with her spouse when medically stable.
--- NOTE | 2023-12-16 12:15 | CON.CAR ---
Addendum entered and electronically signed by Javi Hardin MD 12/16/23 17:29:
I saw and examined the patient.
The Assistant Statistician's note was reviewed and I agree with the note.
Comment: Briefly, 78-year-old woman past medical history of hypertension who is presenting with hypertensive urgency/emergency
Developed headache at home and found her systolic blood pressure to be elevated greater than 200 mmHg. Blood pressure was in the severe range in ER and she was started on IV nicardipine overnight with significant improvement in her blood pressure
and symptoms.
Of note her proBNP here was elevated greater than 2000 and troponin was mildly elevated at 0.067.
Has had multiple similar episodes over the last few months.
In discussing triggers for these episodes patient tells me that she is an anxious person and feels that stress/anxiety has contributed to the elevated blood pressure.
In addition it seems that her hydrochlorothiazide was recently stopped due to hyponatremia. We discussed that she will likely need a diuretic to control her blood pressure going forward.
Given elevated BNP and mild lower extremity edema on exam she received IV Lasix today, monitor response, may need to discharge on oral Lasix
Would add spironolactone as additional agent for blood pressure control
Mildly elevated but downtrending troponin, suspect non-MO troponin elevation given absence of chest discomfort and no ECG changes
Check transthoracic echocardiogram to assess for segmental wall motion abnormalities
Tentative plan for outpatient ischemic evaluation
Original Note:
Consultation
Consultation Request
Date/Time Consultation Performed: 12/16/23
Requesting Provider: Dr. Valdez
Performing Provider: Lucina Duncan PA-C for Dr. Hardin
Reason for Consultation: HTN emergency, elevated trop
Medical History
-
Chief Complaint: headache, elevated BP
History of Present Illness:
Patient is a 78 yo F with PMH of PVCs, abnormal EKG, mild to mod nonobstructive CAD by coronary CTA in 2014, and HTN which she reports has been relatively well controlled on 3 medications (atenolol, lisinopril, HCTZ) for years. She reports in 2021
she had admission for word finding difficulty, initially felt to be secondary to TIA however was then seen by neurology and neurosurgery outpatient and was felt most likely to be seizure and was started on keppra. She more recently has been having
issues over last several months with word finding difficulty episodes and elevated BPs. She was admitted 11/08- for this and head imaging negative. Due to hyponatremia, HCTZ was stopped and lisinopril was increased to 20mg BID. She then had ER
visit 12/06/23 for recurrent symptoms. Her keppra was increased and she was discharged. She then re-presented to ER 12/10/23 for BP check - BPs were elevated in 180s systolic and was discharged. She now presents back with recurrent symptoms and BPs at
home reportedly in 260s systolic as well as significant headaches over the last several days. She reports she has been compliant with her OP BP meds. Denies recent changes in salt intake/diet. Has noted ankle edema B/L in last 1 week. No orthopnea
however does note HIGH. She vomited 3 times yesterday. Trop 0.067. Cardiology consulted for eval. She does not believe she has ever had work up for secondary HTN.
PMH:
HTN
HLD
Obesity
PVCs
Nonobstructive CAD by coronary CTA 2014
Seizure vs TIA in 2021, on keppra
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
Hypothyroidism/thyroid nodule
Anxiety
GERD
Spinal stenosis
Past Medical History
Past Medical History: Other (in HPI)
Social History
Tobacco: Non-Smoker
Alcohol: Occasional
Personal:
Living: With Family
Employment: Retired
Family History
Family History: Diabetes, Hypertension and Other (CVA in father)
Allergies / Home Medications
Allergy/AdvReac Type Severity Reaction Status Date / Time
ibuprofen Allergy reflux Verified 12/15/23 21:39
symptoms
NSAIDS (Non-Steroidal Allergy reflux Verified 12/15/23 21:39
Anti-Inflamma symptoms
�Medication �Instructions �Recorded �Confirmed �Type
atenolol 50 mg tablet 50 mg PO BID Blood Pressure 05/15/15 12/15/23 History
atorvastatin 10 mg tablet 40 mg PO QPM High Cholesterol 05/15/15 12/15/23 History
cholecalciferol (vitamin D3) 10 1,000 units PO DAILY Supplement 05/15/15 12/15/23 History
mcg (400 unit) tablet (Vitamin D3)
levothyroxine 50 mcg tablet 50 mcg PO DAILY Thyroid 05/15/15 12/15/23 History
acetaminophen 500 mg tablet 1,000 mg PO Q6HPRN PRN pain 06/09/18 12/15/23 History
(Tylenol Extra Strength)
lorazepam 1 mg tablet 1 mg PO HS Mental Health/Anxiety 06/09/18 12/15/23 History
buspirone 5 mg tablet 5 mg PO BID Mental Health/Anxiety 11/09/23 12/15/23 History
esomeprazole magnesium 40 mg 40 mg PO DAILY High Cholesterol 11/10/23 12/15/23 History
capsule,delayed release (Nexium)
aspirin 81 mg chewable tablet 81 mg PO DAILY Blood Clot 12/15/23 12/15/23 History
Prevention/Tx
hydralazine 10 mg tablet 10 mg PO QIDPRN PRN bp over 160 12/15/23 12/15/23 History
levetiracetam 750 mg tablet 750 mg PO BID Seizures 12/15/23 12/15/23 History
(Keppra)
lisinopril 20 mg tablet 20 mg PO DAILY Blood Pressure 12/15/23 12/15/23 History
Review of Systems
-
History Source: Patient
All other systems: Negative unless noted
Physical Exam
Vital Signs
Temp Pulse Resp BP Pulse Ox
98.2 F 69 18 152/60 98
12/16/23 11:41 12/16/23 09:00 12/16/23 11:41 12/16/23 08:43 12/16/23 11:41
Lab Results
12/16/23 04:22
12/16/23 04:23
Troponin I 0.067 ng/ml H* 12/16/23 07:55
Vyv-M-Wygabuwkswf Pept 2860 pg/ml 12/15/23 11:55
Physical Exam
General: No Apparent Distress, Comfortable and Other (obese)
HEENT: Normocephalic, Anicteric and Moist Mucous Membranes
Respiratory: Crackles (few at bases) and Non Labored Respirations
Cardiac: S1/S2 and Regular Rhythm
GI: Soft, Non Tender, Non Distended and Normal Bowel Sounds
Musculoskeletal: No Clubbing, No Cyanosis and Edema (1+ of B/L LE)
Skin: Warm and Dry
Neuro: AO x 3
Impression / Plan
-
Primary Tongue Trimmer: Dr. Nadine Perez
Assessment:
Presentation with HTN emergency
Elevated troponin
Headaches
Acute HFpEF
Hypokalemia
Hypomagnesemia
HTN
HLD
Obesity
PVCs
LBBB
Nonobstructive CAD by coronary CTA 2014
Seizure vs TIA in 2021, on keppra
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
Hypothyroidism/thyroid nodule
Anxiety/depression
GERD
Spinal stenosis
ECHO 06/24/23: EF 56%, mild concentric LVH, mild MAC, mild MR, trace TR, PAP 26 mmHg
Plan:
-Patient presents with hypertensive emergency, initially requiring Cardene drip, now off
-Continue outpatient atenolol 50mg BID, lisinopril 20mg BID. Will transition Norvasc started this admission to Aldactone 12.5 mg daily in the setting of hypokalemia and LE edema
-Continue diuresis, ordered IV Lasix again today. proBNP 2680 and CXR with evidence of pulm edema. she had been on HCTZ in past however this was stopped 10/2023 due to hyponatremia
-CHF education
-trend troponin, initial 0.067. no CP. EKG now with complete LBBB compared to prior. if trop higher, consider for inpatient ischemic evaluation
-in SR with PVCs, 1 3 beat run of NSVT overnight. replete K/mag
-recent echo as above. last stress from 2021 with reversible defects in basal inferolateral, basal inferior, mid inferolateral, mid inferior, apical lateral, apical inferior segments consistent with ischemia versus STA. Patient was not able to
complete prone imaging, EF normal
-suspect anxiety playing role in BP elevation. consider psych eval
-salt restriction. avoid NSAIDs, decongestants
-encourage weight loss
-consider secondary hypertension work up
Data Reviewed
-
EKG: Tracing Personally Visualized and interpreted
Radiology: Report Reviewed by me
Medical Tests (Nuc Med, Echo etc): Report Reviewed by me
Labs: Labs Reviewed by me
Old Records: Reviewed
[2023-12-16] MEDS: KCL 20 MEQ PO (13:13)
[2023-12-16] MEDS: MAGNESIUM SULFATE 50 IV (13:13)
[2023-12-16] MEDS: LASIX 40 MG IV (13:14)
[2023-12-16 14:28] LABS: Troponin I 0.066 ng/ml
[2023-12-16] MEDS: LIPITOR 40 MG PO (18:47)
[2023-12-16] MEDS: LOVENOX 40 MG SC (18:47)
[2023-12-16 20:21] LABS: Glucose - Point of Care 133 mg/dl (70-99)
[2023-12-16] MEDS: ATIVAN 1 MG PO (21:51)
[2023-12-16 23:29] LABS: Hematocrit 31.4 % (37.0-47.0); Mean Corpuscular Hgb 29.1 pg (27.0-31.0); Mean Corpuscular Volume 83.1 fL (81.0-99.0); Mean Platelet Volume 10.4 fL (7.4-10.4); Platelet Count 197 10^3/uL (130-400); Red Blood Cell Count 3.78 10^6/uL (4.20-5.40); Red Cell Dist. Width 14.1 % (11.5-14.5); White Blood Cell Count 11.8 10^3/uL (4.8-10.8)
[2023-12-16 23:43] LABS: Blood Urea Nitrogen 19 mg/dl (7-17); Calcium 9.1 mg/dl (8.4-10.2); Carbon Dioxide 36 mmol/L (22-30); Chloride 97 mmol/L (98-107); Estimated Creatinine Clearance 48 ml/min; Glucose 103 mg/dl (70-99); Sodium 138 mmol/L (135-145); eGFR 46.05
[2023-12-17 03:52] VITALS: BP 136/66
[2023-12-17] MEDS: SYNTHROID 50 MCG PO (05:36)
[2023-12-17 05:37] LABS: Hematocrit 29.5 % (37.0-47.0); Hemoglobin 10.6 g/dL (12.0-16.0); Mean Corp Hgb Conc. 35.9 g/dL (33.0-37.0); Mean Corpuscular Hgb 28.8 pg (27.0-31.0); Mean Corpuscular Volume 80.2 fL (81.0-99.0); Red Blood Cell Count 3.68 10^6/uL (4.20-5.40); Red Cell Dist. Width 13.9 % (11.5-14.5); White Blood Cell Count 11.1 10^3/uL (4.8-10.8)
[2023-12-17 05:56] LABS: Mean Platelet Volume 10.7 fL (7.4-10.4); Platelet Count 191 10^3/uL (130-400)
[2023-12-17 06:00] VITALS: BMI 41.5
[2023-12-17 06:19] LABS: Troponin I 0.044 ng/ml
[2023-12-17 06:39] LABS: Blood Urea Nitrogen 18 mg/dl (7-17); Calcium 9.2 mg/dl (8.4-10.2); Carbon Dioxide 29 mmol/L (22-30); Chloride 98 mmol/L (98-107); Estimated Creatinine Clearance 58 ml/min; Glucose 97 mg/dl (70-99); Potassium 3.6 mmol/L (3.5-5.1); Sodium 136 mmol/L (135-145); eGFR 57.31
[2023-12-17 07:00] VITALS: BP 128/96
[2023-12-17] MEDS: PROTONIX 40 MG PO (08:20)
[2023-12-17] MEDS: LOW STRENGTH ASPIRIN 81 MG PO (08:20)
[2023-12-17] MEDS: KEPPRA 750 MG PO ×2 (08:21→20:02)
[2023-12-17] MEDS: MAGNESIUM OXIDE 500 MG PO (08:24)
[2023-12-17] MEDS: BUSPAR 5 MG PO ×2 (08:24→20:01)
[2023-12-17] MEDS: LASIX 40 MG IV (08:26)
[2023-12-17] MEDS: TENORMIN 50 MG PO ×2 (08:26→20:02)
[2023-12-17] MEDS: ZESTRIL 20 MG PO ×2 (08:27→20:01)
--- NOTE | 2023-12-17 08:52 | W.PN.HOSP.TC ---
Addendum entered and electronically signed by Itz Valdez MD 12/17/23 23:53:
Attending Addendum-
I saw and evaluated the patient. I reviewed the resident�s note and agree with findings and plan as documented in the resident�s note. Sub: Had stoke alert called last PM. CTA/CT head no acute CVA, patient upset and wants to leave. BP continues to
be elevated. Patient is a poor historian. Full 12 point ROS reviewed and negative except as documented Exam: Vitals reviewed in chart GEN-NAD heart RRR lungs crackles at bases abd obese LE trace edema Neuro word finding difficulty, MS 5 Psych
anxious appearing Plan:
# Hypertensive Emergency-
- head CT neg for bleed
- BP's still very elevated
- will need to add additional agents
- cards c/s - appreciate input cont new Aldactone
- additional IV lasix given- will likely need to require daily
- cont lisinopril atenolol
- cont hydralazine IV prn
- repeat echo 12/15- EF 55-60%
- secondary HTN workup in process
- trend trops
# CIMS
- stroke alert called 12/16
- CTA neg for hemorrhage
- neuro c/s pend
- may need to repeat MRI
- possibly HTN encephalopathy
- does have significant psych component
- psych c/s
# Non ischemic Myocardial Injury
- troponin trending down
- likely from HTN emergency
- repeated echo
- cards on board
# AE HFpEF
- cont lasix IV
- reassess daily
- monitor strict Is and Os, daily weights, fluid restrict
- repeat echo- EF 55-60%
- BMP in am
# Hypokalemia
- resolved
- replete mag
- replete aggressively as patient now on lasix
- cont Aldactone
- repeat BMP in am
# Leukocytosis
- trending down
- repeat cbc in am
# Asymptomatic Bacteruria
- hold off on abx
- urine cx pend
# Hypomagnesemia
- resolved
- replete prn
# Anxiety
- cont chronic lorazepam q hs
- increase buspirone
- psych c/s
# Hypothyroidism
- large thyroid
- OP bx
- cont levothyroxine
- repeat TSH WNL
# HLD- cont atorvastatin
# Seizure D/O- cont keppra
# Depression- increase buspirone
# GERD- cont ranitidine and esmoprazole
Time spent coordinating care, review of plan of care with resident, personally reviewed records in EMR, med rec, consults, notes, labs, radiology, d/w nursing � 58 mins
Original Note:
Today's Communication/Plan
-
Neuro consult, labs pending
Assessment / Plan
Assessment / Plan
78year old female with past medical history of hypertension, seizures, cavernous vascular hamartoma, history of chronic headache, anxiety, who presented to ED for headache, nausea, vomiting, shortness of breath and significantly elevated BPs.
#hypertensive emergency
- Worsening BP control over the past 6 weeks which has been resistant to outpatient management.
- BP on arrival 229/81. Head CT negative for bleed on admission.
- Was initially managed with nicardipine gtt hydralazine IV prn, home atenolol, home lisinopril with improvement in BPs to 190s/60s.
- proBNP 2860, troponin mildly elevated at 0.067 which is downtrending. EKG not concerning for acute ischemia.
- Cardiology following, appreciate recommendations.
- BP 128/96 this AM, however more recently they are significantly elevated 180-190s/70-80s
- Continue home atenolol, home lisinopril, and spironolactone and lasix
- Continue hydralazine 10mg IV PRN if systolic BP > 160
- Goal BPs systolic < 145 consistently prior to discharge, with stable medication regimen
- Aldosterone, renin, 24 hour urine cortisol pending. Catecholamine serum and urine, random cortisol pending.
- Renal ultrasound negative for renal artery stenosis
- Consider outpatient evaluation for PALOMO
- Plan to follow up with cardiology outpatient- has appointment scheduled for next week
#HFpEF
- Echo 12/15 EF 55-60%, moderate LVH
- BMP on admission 2860
- chest xray on admission with mild pulmonary vascular congestion
- continue medical management as above
- Strict I/Os, daily weights, fluid restriction
#Nonischemic myocardial injury
- Troponin downtrending
- Likely from htn emergency
- echo 12/15 EF 55-60%
- Plan to follow up with cardiology outpatient- has appointment scheduled for next week
#Seizure vs TIA vs stroke
- Stroke alert called 12/15 pm
- Head CT negative for acute hemorrhage, large vessel infarction, mass. Other findings stable (hyperdensity, white matter low attenuation compatible with chronic small vessel ischemic disaese)
- Head/neck CTA negative for significant arterial stenosis or occlusion.
- Neurology consulted today, appreciate recs.
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
- Seizures manifest as difficulty getting words out or thinking of the correct word
- Continue home kepra 750mg BID
- Follows with Dr. Huerta at [place]
- Neurology consulted today, appreciate recs.
#Leukocytosis
#Asymptomatic bacteruria
- WBC 14.2 on admission, now downtrending.
- urinalysis consistent with bacteruria, urine culture pending
- Given that she is asymptomatic, antibiotics are not indicated at this time
#hypokalemia
- Serum K 3.6 today
- Continue spironolactone and follow BMP
#Hypomagnesemia
- Mg 1.5 on admission --> 1.6 --> 2.0 today
- Continue mag supplementation, plan to discontinue tomorrow
#History of chronic nonintractable headache, unspecified headache type
- Per chart review of [facility] neurology notes, headaches have been chronic issue
- Dr. Huerta ([facility]) 01/2023 reports almost daily headaches typically triggered by anxiety
- Unclear at this time if headache is symptom of hypertension
#Anxiety
- Continue home buspirone 5mg BID and lorazepam 1mg nightly
#CKD
- Cr 0.9 on admission, remains stable 1.0 today
#Hypothyroidism
#Goiter
- TSH wnl this admission
- Continue home levothyroxine
- CTA Head 12/15: large, goitrous thyroid with numerous partially calcified nodules; R hemithyroid extends 8.4cm in craniocaudal extent (increased from Apr 2023 ultrasound); resultant mass effect on the extra thoracic trachea approximately 60%
stenosis in transverse diameter
- Currently asymptomatic, follow up with endocrinology outpatient.
#Cavernoma- follows with Dr. Huerta ([facility]) and Dr. Bustamante ([facility] neuro[facility])
#Multilevel spondylosis, spinal canal stenosis, radiculopathy- follows with Dr. Jacob ([facility])
#Stenosis of L middle cerebral artery- continue baby aspirin
#GERD- Continue home esmaprazole 40mg daily and ranitidine
#hyperlipidemia- Continue atorvostatin 40mg daily
Full code
DVT ppx: lovenox
Diet: low Na diet
Anticipated Discharge: 24 - 48 hours
Subjective/Interval History
-
Date of Service: December 17, 2023
Overnight she had an episode of slurred speech, dysarthria, and confusion for which a stroke alert was called. Documentation is unclear how long symptoms lasted, patient estimates about 5 minutes. She reports this feels like her usual seizures which
present with physical inability to pronounce words, though they are not usually associated with confusion.
Today she reports full resolution of stroke-like or seizure-like symptoms. She also reports her headache and nausea have resolved. Her only complaint is fatigue and wanting to go home. She denies headache, light headedness, dizziness, visual
changes, chest pain, shortness of breath, nausea, vomiting, weakness. She is tolerating PO diet and ambulating without assistance. Her last bowel movement was 2 days ago. She uses hearing aids.
Objective Data
-
Labs:
Laboratory Results
12/16/23 12/17/23
23:22 05:26
WBC 11.8 H 11.1 H
Hgb 11.0 L 10.6 L
Hct 31.4 L 29.5 L
Plt Count 197 191
Sodium 138 136
Potassium 4.0 3.6
Chloride 97 L 98
Carbon Dioxide 36 H 29
BUN 19 H 18 H
Creatinine 1.2 H 1.0
Glucose 103 H 97
Calcium 9.1 9.2
Vital Signs:
Vital Signs
Temp Pulse Resp BP Pulse Ox
98.4 F 71 20 128/96 96
12/17/23 03:52 12/17/23 08:26 12/17/23 03:52 12/17/23 08:26 12/17/23 03:52
I&O
12/16/23 12/17/23 12/18/23
06:59 06:59 06:59
Intake Total 200 / 200
Output Total 1100 / 1100 1050 / 1050
Balance -900 / -900 -1050 / -1050
Review of Systems
-
History Source: Patient
All other systems: Reviewed and negative (See subjective)
Physical Exam
-
General: Well Developed, Well Nourished, No Apparent Distress, Comfortable, Conversant and Obese
HEENT: Normocephalic and Atraumatic
Respiratory: Clear to Auscultation and Non Labored Respirations; Negative Wheezes
Cardiac: Regular Rhythm and S1/S2
GI: Soft, Nontender, Nondistended and Normal Bowel Sounds
Musculoskeletal: No Edema
Skin: Warm and Dry
Neuro: Awake, Alert, Oriented and No Motor Deficits; Negative Slurred Speech or Facial Droop
Psych: Calm and Intact Judgement/Insight
Data Reviewed
-
CT Scan: Image personally visualized and interpreted, Report Reviewed by me and Discussed with Physician
Ultrasound: Report Reviewed by me and Discussed with Physician
Labs: Labs Reviewed by me and Discussed with Physician
--- NOTE | 2023-12-17 11:07 | W.PN.CARDCBS ---
Addendum entered and electronically signed by Nadine Perez MD 12/17/23 12:10:
I saw and examined the patient.
The Iron Erector's note was reviewed and I agree with the note.
Comment: Patient seen and independently examined by myself. Exam currently is stable. Her headaches have improved. Her is at the bedside. She has new refractory hypertension with prior labile blood pressures. Echo noted with moderate
LVH.
- Would rule out secondary causes of hypertension with plasma catecholamines and renin/aldosterone level especially in the setting of low normal potassium. Of note CT scan of the abdomen and pelvis in 2018 with normal adrenal glands.
-Also renal artery duplex scan ordered and results pending.
Blood pressure this morning was stable but now is increasing slightly. Had held Aldactone given blood draw and now will resume at 25 mg daily and follow closely.
For now continue to monitor blood pressure.
If stable in the next 24 to 48 hours may be able to discharge once medication regimen is set. Goal for discharge would be consistently less than 145 mmHg systolic.
She already has a follow-up appointment next week with me in the office.
Given mild troponin elevation which may be in part related to significant malignant hypertension and history of mild to moderate coronary disease previously I am currently setting her up for rubidium nuclear pharmacologic PET CT stress test to
exclude ischemia. I have contacted the office.
Original Note:
Today's Communication / Plan
-
Cont Lasix 40 mg IV daily
Spironolactone dose increased to 25 mg daily, dose held until AFTER her secondary causes of HTN labs drawn
Renal artery u/s performed this AM
Impression / Plan
-
PCP: Dr. Tijerina
Primary Tool Polishing Machine Operator: Dr. Nadine Perez
Assessment:
Presentation with HTN emergency
Elevated troponin
Headaches
Acute HFpEF
Hypokalemia
Hypomagnesemia
HTN
HLD
Obesity
PVCs
LBBB
Nonobstructive CAD by coronary CTA 2014
Seizure vs TIA in 2021, on Keppra
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
Hypothyroidism/thyroid nodule
Anxiety/depression
GERD
Spinal stenosis
ECHO 06/24/23: EF 56%, mild concentric LVH, mild MAC, mild MR, trace TR, PAP 26 mmHg
Echo 12/16/2023: EF 55 to 60%, diastology not assessed, posterior MAC, mild MR
Plan:
-BP up to 179/66 12/16/23 late night. No intervention. BP improved to 128/96 prior to morning meds 12/17/23.
-Cont outpatient dose of atenolol 50 mg BID
-Cont outpatient dose of lisinopril to 20 mg BID
-Patient was also taking hydralazine as a PRN prior to admission
-Amlodipine briefly ordered this admission, but now stopped. New to spironolactone and dose increased to 25 mg daily on 12/17/23 AFTER labs drawn.
-Serum catecholamine, serum metanephrine, protein electrophoresis and random cortisol ordered by me. Hospitalist attending have ordered additional labs as well to look for secondary causes of HTN.
-Renal artery u/s ordered by me 12/17/23, patient reports she just had test so results pending
-Patient will need a BMP in 1 week as an outpatient, lab slip from cardiology left on patient's chart by me.
-Troponin 0.067 on admission and trended down thereafter. Kylie PET ordered for outpatient. Order slip left on chart by me and my office will call her to schedule.
-Weight is down 3 lbs overnight with Lasix 40 mg IV daily diuresis.
-EF stable and preserved by echo. Cont atenolol and lisinopril. Patient was not taking a loop diuretic prior to admission
Progress Note - Tool Polishing Machine Operator
Subjective
Date of Service: December 17, 2023
Feels anxious, bed assignment changed from yesterday
Objective
Labs:
12/17/23 05:26
12/17/23 05:26
Labs
Hgb 10.6 g/dL (12.0-16.0) L 12/17/23 05:26
Hct 29.5 % (37.0-47.0) L 12/17/23 05:26
Plt Count 191 10^3/uL (130-400) 12/17/23 05:26
PT 12.3 Sec (11.4-14.6) 12/15/23 11:55
INR 0.94 12/15/23 11:55
APTT 35.6 Sec (23.4-35.0) H 12/15/23 11:55
Sodium 136 mmol/L (135-145) 12/17/23 05:26
Potassium 3.6 mmol/L (3.5-5.1) 12/17/23 05:26
BUN 18 mg/dl (7-17) H 12/17/23 05:26
Creatinine 1.0 mg/dL (0.6-1.0) 12/17/23 05:26
Glucose 97 mg/dl (70-99) 12/17/23 05:26
Troponins
12/16/23 12/16/23 12/17/23
07:55 13:39 05:26
Troponin I 0.067 H* 0.066 H* 0.044 H*
Vital Signs and I&O:
Vital Signs
Temp Pulse Resp BP Pulse Ox
98.1 F 71 16 128/96 96
12/17/23 07:00 12/17/23 08:26 12/17/23 07:00 12/17/23 08:26 12/17/23 03:52
Vital Signs
Temp Pulse Resp BP Pulse Ox
98.1 F 71 16 128/96 96
12/17/23 07:00 12/17/23 08:26 12/17/23 07:00 12/17/23 08:26 12/17/23 03:52
Intake & Output
12/15/23 12/16/23 12/17/23 08/29/24
06:59 06:59 06:59 06:59
Intake Total 200 / 200
Output Total 1100 / 1100 1050 / 1050
Balance -900 / -900 -1050 / -1050
Physical Exam
Physical Exam
GEN: AAOx3
HEENT: mmm
LUNGS: No audible wheeze
CV: SR on tele
ABD: ND
EXT: No edema
NEURO: Gross non-focal
SKIN: No rash
[2023-12-17] MEDS: ALDACTONE 25 MG PO (11:16)
[2023-12-17 11:18] VITALS: BP 190/80
[2023-12-17] MEDS: APRESOLINE 10 MG IV (13:04)
[2023-12-17 15:45] VITALS: BP 193/90
[2023-12-17] MEDS: LIPITOR 40 MG PO (17:11)
[2023-12-17] MEDS: LOVENOX 40 MG SC (17:11)
--- NOTE | 2023-12-17 17:27 | W.PN.UPDATE ---
Update Note
Progress Note Update
Renal artery duplex was negative for renal artery stenosis. Spironolactone may take some time to decrease blood pressure and 25 mg daily was started today after lab draws. She was possibly intolerant to amlodipine with edema. Tonight given
elevated blood pressures have increased again I have started hydralazine 25 mg twice daily. Await labs. Continue to reassess and stabilize blood pressure.
--- NOTE | 2023-12-17 17:40 | W.PN.UPDATE ---
Update Note
Progress Note Update
At bedside to evaluate patient- informed by nursing that patient fell. When I arrived, Yany was lying comfortably in bed in no acute distress. She states that she tripped, landed on her buttocks, and did not hit her head. Before and after the fall,
she denies headache, visual changes, lightheadedness, dizziness, chest pain, shortness of breath, weakness, numbness. She does not have pain anywhere. HR 60s. Most recent BP 193/90 @ 15:45, not recently repeated. Brief physical exam: no point
tenderness, ecchymosis, or abrasions on buttocks, lower back, and feet. No sensory changes or muscle weakness. She is awake, alert, and oriented. A/P: Patient in stable condition with no residual pain or injuries from fall, no additional
interventions necessary.
Patient also expressed feeling 'terribly tense, terribly anxious,' which was exacerbated by her fall. She states that she plans to leave the hospital tomorrow even against medical advice. I reiterated our goal is discharge home after BPs are more
appropriate. She believes that her hypertension is due to her anxiety, which was significantly increased when 'Biden announced he was not running' and that this correlates to the time her BPs became uncontrolled. She does not follow with a
therapist. May benefit from psychiatry consult to adjust anxiety medication regimen.
Discussed with Dr. Valdez
[2023-12-17] MEDS: APRESOLINE 25 MG PO (20:01)
[2023-12-17 20:09] VITALS: BP 173/73
[2023-12-17] MEDS: ATIVAN 1 MG PO (22:47)
[2023-12-17 23:03] VITALS: BP 148/76
[2023-12-18] VITALS (8 sets, daily range): BP systolic 148–200; BP diastolic 56–80
[2023-12-18] MEDS: SYNTHROID 50 MCG PO (07:20)
[2023-12-18] MEDS: PROTONIX 40 MG PO (08:03)
[2023-12-18] MEDS: ZESTRIL 20 MG PO ×2 (08:03→20:26)
[2023-12-18] MEDS: MAGNESIUM OXIDE 500 MG PO (08:03)
[2023-12-18] MEDS: ALDACTONE 25 MG PO (08:04)
[2023-12-18] MEDS: APRESOLINE 25 MG PO ×3 (08:04→21:31)
[2023-12-18] MEDS: LOW STRENGTH ASPIRIN 81 MG PO (08:04)
[2023-12-18] MEDS: TENORMIN 50 MG PO ×2 (08:04→20:27)
[2023-12-18] MEDS: KEPPRA 750 MG PO ×2 (08:04→20:26)
[2023-12-18] MEDS: BUSPAR 10 MG PO ×2 (08:05→20:27)
[2023-12-18] MEDS: LASIX 40 MG IV (08:06)
--- NOTE | 2023-12-18 08:57 | W.PN.HOSP.TC ---
Addendum entered and electronically signed by Itz Valdez MD 12/18/23 23:21:
Attending Addendum-
I saw and evaluated the patient. I reviewed the resident�s note and agree with findings and plan as documented in the resident�s note. Sub: patient appears pale and feels fatigued. compalins of MCDANIEL. Seen with 'she looks awful' Patient
ammendable to stay for continued observation. BP's wildly erratic. Full 12 point ROS reviewed and negative except as documented Exam: Vitals reviewed in chart GEN-ill appearing heart RRR lungs crackles at bases abd obese LE trace edema Neuro word
finding difficulty, MS 08/23 Psych anxious appearing Plan:
# Hypertensive Emergency-
- head CT neg for bleed
- BP's labile
- cards c/s - appreciate input cont new Aldactone add hydralazine
- additional IV lasix given- will likely need to require daily
- cont lisinopril atenolol
- cont hydralazine IV prn
- repeat echo 12/15- EF 55-60%
- secondary HTN workup in process
- trend trops
# CIMS
- stroke alert called 12/16
- CTA neg for hemorrhage
- neuro c/s pend
- may need to repeat MRI
- possibly HTN encephalopathy
- does have significant psych component
- psych c/s- appreciate input add ativan in am
# Non ischemic Myocardial Injury
- troponin trending down
- likely from HTN emergency
- repeated echo
- cards on board
# AE HFpEF
- transition IV lasix to PO
- reassess daily
- monitor strict Is and Os, daily weights, fluid restrict
- repeat echo- EF 55-60%
- BMP in am
# Hypokalemia
- replete aggressively as patient now on lasix
- cont Aldactone
- repeat BMP in am
# Leukocytosis
- resolved
- repeat cbc in am
# Asymptomatic Bacteruria
- hold off on abx
- urine cx- GNB
# Hypomagnesemia
- resolved
- replete prn
# Anxiety
- cont chronic lorazepam q hs
- add lorazepam q am
- cont increased buspirone
- psych c/s appreciated
# Hypothyroidism
- large thyroid
- OP bx
- cont levothyroxine
- repeat TSH WNL
# HLD- cont atorvastatin
# Seizure D/O- cont keppra
# Depression- increase buspirone
# GERD- cont ranitidine and esmoprazole
Code- FULL
Dispo DC in am
Time spent coordinating care, review of plan of care with resident, personally reviewed records in EMR, med rec, consults, notes, labs, radiology, d/w nursing and � 56 mins
Original Note:
Today's Communication/Plan
-
Await AM labs, BPs during day, cardiology recs. Neuro and psych consulted
Assessment / Plan
Assessment / Plan
78year old female with past medical history of hypertension, seizures, cavernous vascular hamartoma, history of chronic headache, anxiety, who presented to ED for headache, nausea, vomiting, shortness of breath and significantly elevated BPs.
#refractory hypertension
#hypertensive urgency
#hypertensive emergency at presentation
- Worsening BP control over the past 6 weeks which has been resistant to outpatient management.
- BP on arrival 229/81. Head CT negative for bleed on admission.
- Was initially managed with nicardipine gtt hydralazine IV prn, home atenolol, home lisinopril with improvement in BPs to 190s/60s.
- proBNP 2860, troponin was mildly elevated at 0.067 which downtrended. EKG not concerning for acute ischemia.
- BP 153/80, 166/64 this AM. Last severe range BP was yesterday at 1545.
- Continue home atenolol 50mg BID, home lisinopril 20mg, and spironolactone (dose increased to 25mg qd), hydralazine PO 25mg BID (started yesterday), lasix IV 40mg qd
- Continue hydralazine 10mg IV PRN if systolic BP > 160
- Aldosterone, renin, 24 hour urine cortisol pending. Catecholamine serum and urine, random cortisol pending.
- Renal ultrasound negative for renal artery stenosis
- Goal per cardiology BPs systolic controlled prior to discharge, with stable medication regimen. <del>Given</del> <del>she</del> <del>is</del> <del>asymptomatic</del> <del>and</del> <del>her</del> <del>BP</del> <del>is</del> <del>not</del>
<del>severe</del> <del>range,</del> <del>may</del> <del>be</del> <del>able</del> <del>to</del> <del>consider</del> <del>discharge</del> <del>today</del> <del>and</del> <del>close</del> <del>outpatient</del> <del>follow</del> <del>up.</del>
<del>Will</del> <del>await</del> <del>additional</del> <del>BP</del> <del>measurements,</del> <del>pending</del> <del>AM</del> <del>labs,</del> <del>and</del> <del>cardiology</del> <del>input.</del> <del>Appreciate</del> <del>recs.</del> Addendum:
BPs remain elevated throughout day today, patient reporting nausea/headache/weakness this afternoon. Will continue inpatient management, PT eval ordered. Cardiology following, apprciate recs.
- Consider outpatient evaluation for PALOMO. 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 She will consider.
- Plan to follow up with cardiology outpatient- has appointment scheduled for next week
#HFpEF
- Echo 12/15 EF 55-60%, moderate LVH
- BMP on admission 2860
- chest xray on admission with mild pulmonary vascular congestion
- continue medical management as above
- Strict I/Os, daily weights, fluid restriction
#Nonischemic myocardial injury
- Troponin downtrending, result from today pending
- Likely from htn emergency and history of CAD
- echo 12/15 EF 55-60%
- Plan to follow up with cardiology outpatient- has appointment scheduled for next week
#Seizure vs TIA vs stroke
- Stroke alert called 12/15 pm
- Head CT negative for acute hemorrhage, large vessel infarction, mass. Other findings stable (hyperdensity, white matter low attenuation compatible with chronic small vessel ischemic disaese)
- Head/neck CTA negative for significant arterial stenosis or occlusion.
- Neurology consulted.
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
- Seizures manifest as difficulty getting words out or thinking of the correct word
- Continue home kepra 750mg BID
- Follows with Dr. Huerta at [facility]
- Neurology consulted today, appreciate recs.
#Leukocytosis
#Asymptomatic bacteruria
- WBC 14.2 on admission, now downtrending. AM CBC today pending.
- urinalysis consistent with bacteruria, urine culture pending
- Given that she is asymptomatic, antibiotics are not indicated at this time
#hypokalemia
- Serum K mario of 3.2, and since then has been wnl x2. AM BMP today pending
- Continue spironolactone and follow BMP
#Hypomagnesemia
- Mg 1.5 on admission, has been wnl x3
- S/p mag supplementation, will discontinue at this time
#History of chronic nonintractable headache, unspecified headache type
- Per chart review of [facility] notes, headaches have been chronic issue
- Dr. Huerta ([facility]) 01/2023 reports almost daily headaches typically triggered by anxiety
- Unclear at this time if headache at presentation is symptom of hypertension
#Anxiety
- Continue buspirone (dose increased to 10mg BID) and lorazepam 1mg nightly
- Psych consulted.
- Recommend follow up with PCP vs phsyciatry outpatient
#CKD
- Cr 0.9 on admission, remained stable overall
- AM BMP today pending
#Hypothyroidism
#Goiter
- TSH wnl this admission
- Continue home levothyroxine
- CTA Head 12/15: large, goitrous thyroid with numerous partially calcified nodules; R hemithyroid extends 8.4cm in craniocaudal extent (increased from Apr 2023 ultrasound); resultant mass effect on the extra thoracic trachea approximately 60%
stenosis in transverse diameter. Reviewed results with patient.
- Currently asymptomatic, follow up with endocrinology outpatient.
#Cavernoma- follows with Dr. Huerta ([facility]) and Dr. Bustamante ([facility])
#Multilevel spondylosis, spinal canal stenosis, radiculopathy- follows with Dr. Jacob ([facility])
#Stenosis of L middle cerebral artery- continue baby aspirin
#GERD- Continue home esmaprazole 40mg daily and ranitidine
#hyperlipidemia- Continue atorvostatin 40mg daily
Full code
DVT ppx: lovenox
Diet: low Na diet
Anticipated Discharge: 24 - 48 hours
Subjective/Interval History
-
Date of Service: December 18, 2023
Yesterday evening she tripped and fell (see update note 12/16), no further acute events overnight. She had a mild headache and mild nausea (no vomiting) last night that resolved spontaneously and did not require tylenol or zofran. Today she denies
headache, visual changes, lightheadedness, dizziness, chest pain, palpitations, shortness of breath, nausea, vomiting, abdominal pain, gross changes in edema. She has no pain from her fall yesterday. She denies any episodes of confusion or
difficulty with word-finding or articulation since 12/15 night. Her only complaint is chronic back pain which is at its baseline and wanting to go home. She continues to report that she will be leaving today whether medically discharged or AMA.
Objective Data
-
Labs:
Laboratory Results
12/18/23
08:48
WBC Pending
Hgb Pending
Hct Pending
Plt Count Pending
Sodium Pending
Potassium Pending
Chloride Pending
Carbon Dioxide Pending
BUN Pending
Creatinine Pending
Glucose Pending
Calcium Pending
Vital Signs:
Vital Signs
Temp Pulse Resp BP Pulse Ox
97.7 F 72 18 166/64 95
12/18/23 07:56 12/18/23 07:56 12/18/23 07:56 12/18/23 07:56 12/18/23 07:56
I&O
12/17/23 12/18/23 12/19/23
06:59 06:59 06:59
Intake Total 1360 / 1360
Output Total 1050 / 1050
Balance -1050 / -1050 1360 / 1360
Review of Systems
-
History Source: Patient
All other systems: Reviewed and negative
Physical Exam
-
General: Well Developed, Well Nourished, No Apparent Distress, Comfortable, Conversant and Obese
HEENT: Normocephalic and Atraumatic
Respiratory: Clear to Auscultation and Non Labored Respirations; Negative Wheezes
Cardiac: Regular Rhythm and S1/S2
GI: Soft, Nontender and Nondistended
Musculoskeletal: No Cyanosis and No Edema
Skin: Warm and Dry
Neuro: Awake, Alert, Oriented (x4) and Nonfocal/Grossly Intact; Negative Slurred Speech or Facial Droop
Psych: Calm and Intact Judgement/Insight
Data Reviewed
-
Labs: Labs Reviewed by me and Discussed with Physician
[2023-12-18 09:11] LABS: Hematocrit 34.9 % (37.0-47.0); Hemoglobin 12.4 g/dL (12.0-16.0); Mean Corp Hgb Conc. 35.5 g/dL (33.0-37.0); Mean Corpuscular Hgb 30.2 pg (27.0-31.0); Mean Corpuscular Volume 84.9 fL (81.0-99.0); Mean Platelet Volume 10.6 fL (7.4-10.4); Platelet Count 219 10^3/uL (130-400); Red Blood Cell Count 4.11 10^6/uL (4.20-5.40); Red Cell Dist. Width 13.8 % (11.5-14.5); White Blood Cell Count 8.9 10^3/uL (4.8-10.8)
[2023-12-18 09:29] LABS: Blood Urea Nitrogen 19 mg/dl (7-17); Calcium 9.3 mg/dl (8.4-10.2); Carbon Dioxide 31 mmol/L (22-30); Chloride 94 mmol/L (98-107); Estimated Creatinine Clearance 57 ml/min; Glucose 127 mg/dl (70-99); Potassium 3.3 mmol/L (3.5-5.1); Sodium 135 mmol/L (135-145); eGFR 57.31
--- NOTE | 2023-12-18 09:31 | W.PN.CARDCBS ---
Addendum entered and electronically signed by Nadine Perez MD 12/18/23 10:22:
I saw and examined the patient.
The Claims Sorter's note was reviewed and I agree with the note.
Comment: Events of yesterday reviewed. Blood pressure initially this morning was stable. There definitely is some anxiety component to her blood pressure. Continue to rule out secondary causes of hypertension. As noted renal artery ultrasound
was negative for renal artery stenosis. Hydralazine increased to 25 mg 3 times daily. Plan is to get control of blood pressure and then eventually consolidate medications as an outpatient. Discussed with patient. She understands medications may
take some time to have the full effect.
Reassess blood pressure today if stable less than or equal to 160 mmHg systolic I think it is fine for the patient to be discharged. Medications as noted. I have an appointment with her next week. She knows to call if issues develop.
Stress test next week as noted.
Await testing which is send out and we will review next week.
Original Note:
Today's Communication / Plan
-
Continue spironolactone 25mg daily, atenolol 50mg BID, lisinopril 20mg BID, and hydralazine now increased to 25mg TID
Recheck BP at noon.
If BP stable, ok for discharge
PET/CT stress arranged
Follow up office visit arranged
Impression / Plan
-
PCP: Dr. Tijerina
Primary Pulp Piler: Dr. Nadine Perez
Assessment:
Presentation with HTN emergency
Elevated troponin
Headaches
Acute HFpEF
Hypokalemia
Hypomagnesemia
HTN
HLD
Obesity
PVCs
LBBB
Nonobstructive CAD by coronary CTA 2014
Seizure vs TIA in 2021, on Keppra
Cavernoma by brain imaging at [facility] 2021
Hypothyroidism/thyroid nodule
Anxiety/depression
GERD
Spinal stenosis
ECHO 06/24/23: EF 56%, mild concentric LVH, mild MAC, mild MR, trace TR, PAP 26 mmHg
Echo 12/16/2023: EF 55 to 60%, diastology not assessed, posterior MAC, mild MR
Plan:
-Presented with elevated BP and admitted with hypertensive urgency.
-BPs elevated this AM. Will follow after AM medications. Repeat BP at noon.
-Continue atenolol 50mg BID, lisinopril 20mg BID, hydralazine 25mg TID, and spironolactone 25mg daily.
-Diuresing with IV lasix 40mg daily this admission, weight down 4lbs overnight, down to 249lbs 12/17. Transition to PO lasix 40mg daily.
-Secondary hypertension workup underway. Renal artery US without evidence of renal artery stenosis.
-Patient will need a BMP in 1 week as an outpatient, lab slip provided.
-Troponin 0.067 on admission and trended down thereafter. PET/CT stress has been arranged and is scheduled for 12/22. Order slip left on chart.
-EF stable and preserved by echo.
-If BP improved/acceptable after recheck at noon, would be stable for discharge.
-Follow up arranged 12/24.
HPI: Patient is a 78 yo F with PMH of PVCs, abnormal EKG, mild to mod nonobstructive CAD by coronary CTA in 2014, and HTN which she reports has been relatively well controlled on 3 medications (atenolol, lisinopril, HCTZ) for years. She reports in
2021 she had admission for word finding difficulty, initially felt to be secondary to TIA however was then seen by neurology and neurosurgery outpatient and was felt most likely to be seizure and was started on keppra. She more recently has been
having issues over last several months with word finding difficulty episodes and elevated BPs. She was admitted 11/08- for this and head imaging negative. Due to hyponatremia, HCTZ was stopped and lisinopril was increased to 20mg BID. She then
had ER visit 12/06/23 for recurrent symptoms. Her keppra was increased and she was discharged. She then re-presented to ER 12/10/23 for BP check - BPs were elevated in 180s systolic and was discharged. She now presents back with recurrent symptoms and
BPs at home reportedly in 260s systolic as well as significant headaches over the last several days. She reports she has been compliant with her OP BP meds. Denies recent changes in salt intake/diet. Has noted ankle edema B/L in last 1 week. No
orthopnea however does note HIGH. She vomited 3 times yesterday. Trop 0.067. Cardiology consulted for eval. She does not believe she has ever had work up for secondary HTN.
Progress Note - Pulp Piler
Subjective
Date of Service: December 18, 2023
No complaints this AM, did have mechanical fall overnight but feels well.
Objective
Labs:
12/18/23 08:48
12/18/23 08:48
Labs
Hgb 12.4 g/dL (12.0-16.0) 12/18/23 08:48
Hct 34.9 % (37.0-47.0) L 12/18/23 08:48
Plt Count 219 10^3/uL (130-400) 12/18/23 08:48
PT 12.3 Sec (11.4-14.6) 12/15/23 11:55
INR 0.94 12/15/23 11:55
APTT 35.6 Sec (23.4-35.0) H 12/15/23 11:55
Sodium 135 mmol/L (135-145) 12/18/23 08:48
Potassium 3.3 mmol/L (3.5-5.1) L 12/18/23 08:48
BUN 19 mg/dl (7-17) H 12/18/23 08:48
Creatinine 1.0 mg/dL (0.6-1.0) 12/18/23 08:48
Glucose 127 mg/dl (70-99) H 12/18/23 08:48
Troponins
12/16/23 12/16/23 12/17/23
07:55 13:39 05:26
Troponin I 0.067 H* 0.066 H* 0.044 H*
Vital Signs and I&O:
Vital Signs
Temp Pulse Resp BP Pulse Ox
97.7 F 72 18 166/64 95
12/18/23 07:56 12/18/23 07:56 12/18/23 07:56 12/18/23 07:56 12/18/23 07:56
Vital Signs
Temp Pulse Resp BP Pulse Ox
97.7 F 72 18 166/64 95
12/18/23 07:56 12/18/23 07:56 12/18/23 07:56 12/18/23 07:56 12/18/23 07:56
Intake & Output
12/16/23 12/17/23 12/18/23 12/19/23
06:59 06:59 06:59 06:59
Intake Total 200 / 200 1360 / 1360
Output Total 1100 / 1100 1050 / 1050
Balance -900 / -900 -1050 / -1050 1360 / 1360
Physical Exam
Physical Exam
GEN: No distress, awake, alert, oriented x3
HEENT: supple, anicteric, mmm
LUNGS: CTA b/l, no wheezes/rales
CV: Reg, S1/S2, no murmur
EXT: No clubbing, cyanosis, or edema
NEURO: Gross non-focal
SKIN: Warm, dry, no rash
[2023-12-18 09:45] LABS: Troponin I 0.043 ng/ml
[2023-12-18] MEDS: KCL 20 MEQ PO ×2 (10:22→20:27)
[2023-12-18 10:35] LABS: Cortisol, Random 19.4 ug/dl
[2023-12-18] MEDS: APRESOLINE 10 MG IV (12:02)
[2023-12-18] MEDS: KCL 40 MEQ PO (13:14)
--- NOTE | 2023-12-18 13:27 | W.DCSUMMARY ---
Addendum entered and electronically signed by Itz Valdez MD 12/19/23 23:25:
Read, reviewed, and agree. See same day progress note for additional details.
Junaid Valdez MD
Original Note:
Documented by User: Nery Canas MD, Resident 12/19/23 23:05
Discharge Summary
Discharge Data
Date of Admission: 12/15/23
Date of Discharge: 12/19/23
-
Pending Results: Yes
Additional Pending Results:
lab results for secondary hypertension
Hospital Course
Discharging Physician : Dr. Canas, Dr. Valdez
Disposition : Home
Primary care physician : Dr. Tijerina
Principal Discharge diagnosis : hypertensive emergency, CIMS, nonischemic cardiomyopathy, HFpEF, asymptomatic bacteruria, anxiety
Chronic Discharge diagnosis : refractory hypertension, history of focal epilepsy with simple partial seizure, chronic headache, anxiety, hypothyroidism and goiter, HLD
Hospital Course : Yany presented to ED for headache, shortness of breath, N/V, and was found to be in hypertensive emergency. Her blood pressures were initially poorly controlled and her BP medications were adjusted accordingly. She had low-grade
intermittent headache and nausea throughout hospitalization that did not correlate with BPs. She had significant anxiety throughout hospitalization, and psychiatry began AM lorazepam in addition to home PM dose. On day of discharge, she was stable
for discharge home.
Important imaging findings :
Head CT 12/14 IMPRESSION:
1. No acute intracranial abnormalities appreciated.
2. Small cortical density along the left frontal lobe, unchanged compared to multiple prior CT examinations please see discussion from prior studies, including MRI brain 11/11/2023.
Chest CT 12/14
IMPRESSION:
1. Findings suggestive of mild pulmonary vascular congestion.
2. No large pleural effusion on either side.
Head CT 12/15
IMPRESSION:
No acute intracranial abnormality noted.
No significant change within the mild hyperdensity along the anterolateral left frontal lobe.
Head/neck CT 12/15
IMPRESSION:
CTA Head: No significant arterial stenosis. Atherosclerotic calcifications of the bilateral petrous, cavernous and paraclinoid ICAs without significant stenosis. right DIAMOND CLEAVER.
CTA Neck: No significant arterial stenosis. 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 The right hemithyroid extends within the right cervical soft tissues to the level of the hyoid and measures 8.4 cm in craniocaudal extent
which appears increased from prior ultrasound in April 2023. There is resultant mass effect on the extra thoracic trachea approximately 60% stenosis in transverse diameter. There are numerous partially calcified nodules. Per prior report multiple
nodules have undergone prior biopsy.
Renal artery duplex 12/16
IMPRESSION: Technically challenging and limited study due to patient body habitus. There is no evidence for significant renal artery stenosis bilaterally.
Procedure findings :
N/A
Discharge Plan
-
Patient Disposition: Home (Routine Discharge)
Discharge Diagnosis/Procedures: Hypertensive emergency, hypertensive urgency, refractory hypertension, nonischemic myocardial injury, heart failure with preserved ejection fraction, possible seizure vs TIA, headache, anxiety, hypothyroidism and
goiter, hypokalemia, hypomagnesemia
Condition: Good
Diet: As tolerated, Regular and Low Sodium
Activity: No restrictions
Driving Restrictions: As prior to admission
Blood Work: BMP in 1 week, lab slip for [facility] on chart
Specialty Instructions: Weigh Daily- Call MD for wt gain/loss 3 lbs overnight/5 lbs in 1 week
Instructions: Transient ischemic attack, High blood pressure emergencies, Generalized Anxiety Disorder (DC), *DCA Heart Failure Instructions
Referrals:
Stefan Tijerina Jr., DO [Family Provider] - in one to two weeks (Please schedule appointment with primary care in the next 1-2 weeks for continued care.)
Nadine Perez MD [Active] - 12/25/23 3:20 pm (Your appointment time has changed from 2:40 to now at 3:20pm. Still at [facility] on 12/24. Please call the office with questions. You also have a stress test scheduled on 12/22)
Lolly Strong MD [Active] - (Follow up with psychiatry as need for anxiety)
Additional Discharge Medication Instructions: You have been scheduled for a PET/CT stress test 12/23/2023 at 2:00 PM. If you have any questions, and for instructions for stress test, please call [phone]. Please take ALL of your usual medications
the night before and the morning of stress testing to avoid hypertension prior to/during test.
Prescriptions:
New
buspirone 10 mg Tablet
10 mg PO BID Qty: 60 0RF
furosemide 40 mg Tablet
40 mg PO DAILY Qty: 30 0RF
hydralazine 25 mg Tablet
25 mg PO TID Qty: 90 0RF
spironolactone 25 mg Tablet
25 mg PO DAILY Qty: 30 0RF
lisinopril 20 mg Tablet
20 mg PO BID Qty: 60 0RF
lorazepam 0.5 mg Tablet
0.5 mg PO DAILY Qty: 30 0RF
Continued
atorvastatin 10 MG tablet
40 mg PO QPM
levothyroxine 50 MCG tablet
50 mcg PO DAILY
cholecalciferol (vitamin D3) [Vitamin D3] 400 UNITS tablet
1,000 units PO DAILY
atenolol 50 MG tablet
50 mg PO BID
acetaminophen [Tylenol Extra Strength] 500 MG tablet
1,000 mg PO Q6HPRN PRN (Reason: pain)
lorazepam 1 MG tablet
1 mg PO HS
esomeprazole magnesium [Nexium] 40 mg Capsule,Delayed Release(Dr/Ec)
40 mg PO DAILY
aspirin 81 MG tablet,chewable
81 mg PO DAILY
levetiracetam [Keppra] 750 mg tablet
750 mg PO BID
Discontinued
buspirone 5 mg Tablet
5 mg PO BID
hydralazine 10 mg Tablet
10 mg PO QIDPRN PRN (Reason: bp over 160)
lisinopril 20 mg tablet
20 mg PO DAILY
Discharge Orders:
Discharge Patient (As Directed); Ordered 12/19/23
Ordered By: Nery Canas
Care Plan Goals
Care Plan Goals:
Problem: Readiness for enhanced knowledge related to diagnosis and treatment plan
Goal: Understand your diagnosis and treatment plan needs, including medications if applicable.
Instructions: Know your diagnosis, underlying causes and treatment plan options, including medications if applicable. Consult with your health care team to learn about your diagnosis and treatment plan, including medications if applicable.
Discharge Date and Time
Discharge Date/Time: 12/19/23 14:59
Print Language: LITHUANIAN

Documented by User: Itz Valdez MD 12/19/23 23:23
Discharge Summary
Discharge Data
Date of Admission: 12/15/23
Date of Discharge: 12/19/23
Discharge Plan
-
Patient Disposition: Home (Routine Discharge)
Discharge Diagnosis/Procedures: Hypertensive emergency, hypertensive urgency, refractory hypertension, nonischemic myocardial injury, heart failure with preserved ejection fraction, possible seizure vs TIA, headache, anxiety, hypothyroidism and
goiter, hypokalemia, hypomagnesemia
Condition: Good
Diet: As tolerated, Regular and Low Sodium
Activity: No restrictions
Driving Restrictions: As prior to admission
Blood Work: BMP in 1 week, lab slip for [facility] on chart
Specialty Instructions: Weigh Daily- Call MD for wt gain/loss 3 lbs overnight/5 lbs in 1 week
Instructions: Transient ischemic attack, High blood pressure emergencies, Generalized Anxiety Disorder (DC), *DCA Heart Failure Instructions
Referrals:
Stefan Tijerina Jr., DO [Family Provider] - in one to two weeks (Please schedule appointment with primary care in the next 1-2 weeks for continued care.)
Nadine Perez MD [Active] - 12/25/23 3:20 pm (Your appointment time has changed from 2:40 to now at 3:20pm. Still at the [facility] office on 12/24. Please call the office with questions. You also have a stress test scheduled on 12/22)
Lolly Strong MD [Active] - (Follow up with psychiatry as need for anxiety)
Additional Discharge Medication Instructions: You have been scheduled for a PET/CT stress test 12/23/2023 at 2:00 PM. If you have any questions, and for instructions for stress test, please call [phone]. Please take ALL of your usual medications
the night before and the morning of stress testing to avoid hypertension prior to/during test.
Prescriptions:
New
buspirone 10 mg Tablet
10 mg PO BID Qty: 60 0RF
furosemide 40 mg Tablet
40 mg PO DAILY Qty: 30 0RF
hydralazine 25 mg Tablet
25 mg PO TID Qty: 90 0RF
spironolactone 25 mg Tablet
25 mg PO DAILY Qty: 30 0RF
lisinopril 20 mg Tablet
20 mg PO BID Qty: 60 0RF
lorazepam 0.5 mg Tablet
0.5 mg PO DAILY Qty: 30 0RF
Continued
atorvastatin 10 MG tablet
40 mg PO QPM
levothyroxine 50 MCG tablet
50 mcg PO DAILY
cholecalciferol (vitamin D3) [Vitamin D3] 400 UNITS tablet
1,000 units PO DAILY
atenolol 50 MG tablet
50 mg PO BID
acetaminophen [Tylenol Extra Strength] 500 MG tablet
1,000 mg PO Q6HPRN PRN (Reason: pain)
lorazepam 1 MG tablet
1 mg PO HS
esomeprazole magnesium [Nexium] 40 mg Capsule,Delayed Release(Dr/Ec)
40 mg PO DAILY
aspirin 81 MG tablet,chewable
81 mg PO DAILY
levetiracetam [Keppra] 750 mg tablet
750 mg PO BID
Discontinued
buspirone 5 mg Tablet
5 mg PO BID
hydralazine 10 mg Tablet
10 mg PO QIDPRN PRN (Reason: bp over 160)
lisinopril 20 mg tablet
20 mg PO DAILY
Discharge Orders:
Discharge Patient (As Directed); Ordered 12/19/23
Ordered By: Nery Canas
Care Plan Goals
Care Plan Goals:
Problem: Readiness for enhanced knowledge related to diagnosis and treatment plan
Goal: Understand your diagnosis and treatment plan needs, including medications if applicable.
Instructions: Know your diagnosis, underlying causes and treatment plan options, including medications if applicable. Consult with your health care team to learn about your diagnosis and treatment plan, including medications if applicable.
Discharge Date and Time
Discharge Date/Time: 12/19/23 14:59
Print Language: LITHUANIAN
[2023-12-18] MEDS: TYLENOL 1000 MG PO (13:49)
--- NOTE | 2023-12-18 14:23 | VNURNOTE ---
Home health liaison met with patient to discuss VN services. Patient states she does not know that she is interested in receiving services and would like to think about it. States she is not going home today. Patient understands home visits will
be 1-2 times a week to assess and teach medical management. Patient aware if she does want homecare services than the visiting nurse will contact her for start of care within 1-2 days after discharge from . [facility] brochure given to patient. Will
follow up. TT sent to CM
--- NOTE | 2023-12-18 15:45 | CON.MD ---
Consultation - Medical
-
patient seen chart reviewed. at bedside. the patient is a 78 year old woman admitted to w c.o l[facility] sob n/v . she has been seen here in the past for similar including earlier thism month. she has had ongoing issues w bp... reports
systolic over 200 and diastolics over 100 to 110. she was noted to be hypertensive on this admit and that is still not under consistent control. there were other abnormalities see medical hx below. this consult was ordered for anxiety. the patient
reports she has been anxious all of her life. she had a painful childhood with an explosive narcissistic father who was prone to exploding anywhere anytime much to mrs holcomb's consternation. when he no one was particularly sad. she sought rx
several times over the course of her life. 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
she is 53 years and has spent much time worrying how she will cope if she loses her . she also worries about her medical illnesses claiming her in and leaving him alone on this earth. not to mention she is worried about her
medical conditions see below. she hates being in the hospital and finds just talking to doctors and staff very anxiety provoking. she is currently prescribed ativan one mg q hs. she was taking one bid and she felt this was very helpful but her md
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 she was then placed on buspar 10 mg bid recently inc. no help from buspar yet. she is not suicidal. she is more anxious than depressed although she is not happy about her medical condition
including constant headaches and chronic pain. she has had fleeting suicidal thoughts but has never acted on it and would never act on it. she has never thought about a suicidal method
past psych hx see above has had therapy. no hospital stays no antidep rx. meds as above
medical hx patient w hx hypothyroid htn colonic adenoma spinal stenosis hld melanoma cad osteoporosis ibs vit d def cerebral cavernous formation gerd pedal edema thoracic radiculopathy obesity seizure hx noted in chart with ? although she
takes keppra . three recent ecg's all w different qtc the last is 501 ecg are abnormal tsh nl
family hx re dad see above patient feels dad may have had anxiety
substance abuse denied
social resides w h of 54 years. retired she career hx above. childhood marred by narcissitic dad who traumatized patient work experience above. no kids has + friends had a lot of hobbies but limited due to her illnesses
mse alert ox3 cooperative and attentive fully engaged in discussion thought process and speech nl mood is anxious affect appropriate see above re si above aver intell insight judgment good
dx unspecified anxiety ptsd
plan would add ativan o.5 mg in the am in addition to one mg q hs. patient says it was helpful and she is aware of the issues of addicton memory falling etc. she will need to be careful but i don't think buspar in the end will prove helpful
especially in patient's who have taken bzp in the past. that said cymbalta might be considered in the future for anxiety and chronic pain but wouldl maycol to see normalized qtc check b12 folate and vit d. what i think would help patient a lot would
be psychotherapy. she is intelligent and has capacity for insight. she says therapy helped her before. explained to her how to go about accessing rx with medicare. will return to see her in the am.
[2023-12-18] MEDS: LIPITOR 40 MG PO (17:07)
[2023-12-18] MEDS: LOVENOX 40 MG SC (17:07)
--- NOTE | 2023-12-18 18:30 | CM ---
referral sent to [facility]. rec by attending.she was seen by julissa khan and was not sure she wants vn.seen by psychiatry for anxiety.patient will proably dc home tomorrow.patient signed imm letter.home with vn or no needs.
[2023-12-18] MEDS: ATIVAN 1 MG PO (21:31)
[2023-12-19 02:50] VITALS: BP 163/73
[2023-12-19] MEDS: SYNTHROID 50 MCG PO (05:53)
[2023-12-19] MEDS: TYLENOL 1000 MG PO (06:55)
[2023-12-19 07:55] VITALS: BP 176/64
[2023-12-19] MEDS: PROTONIX 40 MG PO (08:01)
[2023-12-19] MEDS: ZESTRIL 20 MG PO (08:01)
[2023-12-19] MEDS: KEPPRA 750 MG PO (08:01)
[2023-12-19] MEDS: ALDACTONE 25 MG PO (08:02)
[2023-12-19] MEDS: LASIX 40 MG PO (08:02)
[2023-12-19] MEDS: KCL 20 MEQ PO (08:02)
[2023-12-19] MEDS: APRESOLINE 25 MG PO (08:02)
[2023-12-19] MEDS: TENORMIN 50 MG PO (08:02)
[2023-12-19] MEDS: ATIVAN 0.5 MG PO (08:03)
[2023-12-19] MEDS: LOW STRENGTH ASPIRIN 81 MG PO (08:03)
[2023-12-19] MEDS: BUSPAR 10 MG PO (08:03)
[2023-12-19 08:34] LABS: Hematocrit 32.4 % (37.0-47.0); Hemoglobin 11.3 g/dL (12.0-16.0); Mean Corp Hgb Conc. 34.9 g/dL (33.0-37.0); Mean Corpuscular Hgb 29.1 pg (27.0-31.0); Mean Corpuscular Volume 83.5 fL (81.0-99.0); Mean Platelet Volume 10.8 fL (7.4-10.4); Platelet Count 235 10^3/uL (130-400); Red Blood Cell Count 3.88 10^6/uL (4.20-5.40); White Blood Cell Count 9.1 10^3/uL (4.8-10.8)
[2023-12-19 08:53] LABS: Blood Urea Nitrogen 24 mg/dl (7-17); Calcium 9.2 mg/dl (8.4-10.2); Carbon Dioxide 31 mmol/L (22-30); Chloride 95 mmol/L (98-107); Estimated Creatinine Clearance 52 ml/min; Glucose 137 mg/dl (70-99); Sodium 136 mmol/L (135-145); eGFR 51.11
--- NOTE | 2023-12-19 09:08 | W.PN.UPDATE ---
Update Note
Progress Note Update
Patient stable for discharge from a cardiac standpoint. Follow up has been arranged and stress testing is arranged for next week. She should continue current cardiac medications including lipitor 40mg daily, atenolol 50mg BID, aspirin 81mg daily,
lisinopril 20mg BID, spironolactone 25mg daily, hydralazine 25mg TID, and lasix 40mg daily.
[2023-12-19 09:09] LABS: Vitamin D, 25-OH*** 21.4 ng/mL (30-80)
--- NOTE | 2023-12-19 09:27 | W.PN.HOSP.TC ---
Addendum entered and electronically signed by Itz Valdez MD 12/19/23 22:17:
Attending Addendum-
I saw and evaluated the patient. I reviewed the resident�s note and agree with findings and plan as documented in the resident�s note. Sub: patient appears very comfortable. complains of intermittent MCDANIEL but much improved. Seen with . Would
love to go home today. Full 12 point ROS reviewed and negative except as documented Exam: Vitals reviewed in chart GEN-NAD heart RRR lungs crackles at bases abd obese LE trace edema Neuro fluent speech MS 08/23 Psych calm appearing Plan:
# Hypertensive Emergency-
- head CT neg for bleed
- BP's lmuch better controlled
- cards c/s - appreciate input cont new Aldactone and hydralazine
- cont PO lasix
- cont lisinopril atenolol
- repeat echo 12/15- EF 55-60%
- secondary HTN workup in process
- trend trops
- DC home
# CIMS
- likely psych related
- stroke alert called 12/16
- CTA neg for hemorrhage
- neuro c/s pend
- may need to repeat MRI
- possibly HTN encephalopathy
- does have significant psych component
- psych c/s- appreciate cont additional ativan in am DC buspar
# Non ischemic Myocardial Injury
- troponin trending down
- likely from HTN emergency
- repeated echo
- cards on board
# AE HFpEF
- transitioned IV lasix to PO
- reassess daily
- monitor strict Is and Os, daily weights, fluid restrict
- repeat echo- EF 55-60%
# Hypokalemia
- resolved
- replete aggressively as patient now on lasix
- cont Aldactone
- repeat BMP in am
# Leukocytosis
- resolved
- repeat cbc in am
# Asymptomatic Bacteruria
- lack of sxs throughout hospital course
- hold off on abx
- urine cx- proteus
# Hypomagnesemia
- resolved
- replete prn
# Anxiety
- cont chronic lorazepam q hs
- added lorazepam q am
- DC buspirone
- psych c/s appreciated
# Hypothyroidism
- large thyroid
- OP bx
- cont levothyroxine
- repeat TSH WNL
# HLD- cont atorvastatin
# Seizure D/O- cont keppra
# Depression- increase buspirone
# GERD- cont ranitidine and esomeprazole
Code- FULL
Dispo DC Home with
Time spent coordinating care, DC planning, review of DC plan of care with resident, transition of care, review of records, med rec/scripts sent electronically, consults, notes, d/w consultants, nursing, and CM� 38 mins
Original Note:
Today's Communication/Plan
-
Discharge home today
Assessment / Plan
Assessment / Plan
78year old female with past medical history of hypertension, seizures, cavernous vascular hamartoma, history of chronic headache, anxiety, who presented to ED for headache, nausea, vomiting, shortness of breath and significantly elevated BPs.
#refractory hypertension
#hypertensive urgency
#hypertensive emergency at presentation
- Worsening BP control over the past 6 weeks which has been resistant to outpatient management.
- BP on arrival 229/81. Head CT negative for bleed on admission.
- Was initially managed with nicardipine gtt hydralazine IV prn, home atenolol, home lisinopril with improvement in BPs to 190s/60s.
- proBNP 2860, troponin was mildly elevated at 0.067 which downtrended. EKG not concerning for acute ischemia.
- BP 153/80, 166/64 this AM. Last severe range BP was yesterday at 1545.
- Continue home atenolol 50mg BID, home lisinopril 20mg, and spironolactone 25mg qd, hydralazine PO 25mg BID, lasix PO 40mg qd
- Discontinue prn IV hydralazine 10mg this AM as her recent BPs are stable. Will restart if appropriate.
- Evaluation of secondary hypertension underway. Random cortisol 19.4 (wnl, drawn at 9am). Pending labs: Aldosterone, renin, metanephrine, catecholamine, dopamine, epinephrine, norepinephrine, serum protein electrophoresis, globulins. Pending urine
studies: cr, epinephrine, norepinephrine, dopamine, catecholamines. She will follow up these results with cardiology outpatient.
- Renal ultrasound negative for renal artery stenosis
- Goal per cardiology BPs systolic controlled prior to discharge, with stable PO medication regimen which has been met today. BPs today 163/73, 176/64. Given she is asymptomatic and her BP is not severe range, she is stable for discharge today with
close outpatient follow up with cardiology, which has been arranged. She will continue current oral BP medication regimen: atenolol 50mg BID, aspirin 81mg daily, lisinopril 20mg BID, spironolactone 25mg daily, hydralazine 25mg TID, and lasix 40mg
daily.
- Consider outpatient evaluation for PALOMO. 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 She will consider.
#HFpEF
- Echo 12/15 EF 55-60%, moderate LVH
- BMP on admission 2860
- chest xray on admission with mild pulmonary vascular congestion
- continue medical management as above
- Strict I/Os, daily weights, fluid restriction
#Nonischemic myocardial injury
- Troponin downtrending, 0.067 on admission --> 0.023 today
- Likely from htn emergency and history of CAD
- echo 12/15 EF 55-60%
- Plan to follow up with cardiology outpatient- she has stress testing appointment scheduled
#Seizure vs TIA vs stroke
- Stroke alert called 12/15 pm
- Head CT negative for acute hemorrhage, large vessel infarction, mass. Other findings stable (hyperdensity, white matter low attenuation compatible with chronic small vessel ischemic disease)
- Head/neck CTA negative for significant arterial stenosis or occlusion.
- Continue baby aspirin 81mg.
- Neurology consulted.
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
- Seizures manifest as difficulty getting words out or thinking of the correct word
- Continue home kepra 750mg BID
- Follows with Dr. Huerta at [facility]
- Neurology consulted.
#History of chronic nonintractable headache, unspecified headache type
- Per chart review of [facility] neurolog[facility] notes, headaches have been chronic issue
- Dr. Huerta ([facility]) 01/2023 reports almost daily headaches typically triggered by anxiety
- Unclear at this time if headache at presentation is symptom of hypertension
- Suspect low grade intermittent headache throughout admission is not symptom of hypertension as it has not correlated with high or low BPs, resolves spontaneously or with tylenol, and she has no visual changes or other symptoms. Most likely tension
headache which has been exacerbated by stress, poor sleep in hospital, and anxiety.
- Follow up with outpatient neurology as needed
#Anxiety
- Continue buspirone 10mg BID and lorazepam 1mg nightly.
- Psych consulted, appreciate recs. Added 0.5mg daily lorazepam.
- Recommend follow up with PCP vs psychiatry outpatient +/- therapy
#Fall during admission
- Patient tripped and fell from standing. No neuro/cardiac symptoms associated with fall, no loss of consciousness. She did not hit her head or have any injuries from fall. No difficulties ambulating without assistance.
#Leukocytosis: resolved
#Asymptomatic bacteruria
- WBC 14.2 on admission, which downtrended to wnl. WBC today 9.1, wnl and stable.
- urinalysis consistent with bacteruria, urine culture positive for proteus mirabilis
- Given that she is asymptomatic, antibiotics are not indicated at this time
#hypokalemia: resolved
- Serum K mario of 3.2 --> today 4.0 wnl
- Continue spironolactone
#Hypomagnesemia: resolved
- Mg 1.5 on admission, has been wnl x3
- S/p mag supplementation
#CKD
- Cr 0.9 on admission, remained stable overall --> 1.1 today
- Follow up with PCP outpatient.
#Hypothyroidism
#Goiter
- TSH wnl this admission
- Continue home levothyroxine
- CTA Head 12/15: large, goitrous thyroid with numerous partially calcified nodules; R hemithyroid extends 8.4cm in craniocaudal extent (increased from Apr 2023 ultrasound); resultant mass effect on the extra thoracic trachea approximately 60%
stenosis in transverse diameter. Reviewed results with patient.
- Currently asymptomatic, follow up with endocrinology outpatient.
#Cavernoma- follows with Dr. Huerta ([facility]) and Dr. Bustamante ([facility])
#Multilevel spondylosis, spinal canal stenosis, radiculopathy- follows with Dr. Jacob ([facility])
#Stenosis of L middle cerebral artery- continue baby aspirin
#GERD- Continue home esmaprazole 40mg daily and ranitidine
#hyperlipidemia- Continue atorvostatin 40mg daily
Full code
DVT ppx: lovenox
Diet: low Na diet
Dispo planning: discharge home today
Anticipated Discharge: Today
Subjective/Interval History
-
Date of Service: December 19, 2023
No acute events overnight. She reports headache overnight, which was improved with tylenol. This morning she reports slight headache, 'light nausea,' and her anxiety is 'not so great,' and she is feeling weak; however overall she feels better today
and ready for going home. She denies visual changes, lightheadedness, dizziness, chest pain, shortness of breath, vomiting, abdominal pain, gross changes in edema. She denies any episodes of confusion/word-finding/dysarthria since 12/15 stroke alert.
Denies any falls since 12/16, and has no pain from that. She denies dysuria, hematuria. She reports last bowel movement was 3 days ago. Tolerating PO diet and ambulating as tolerated. She has no concerns about ambulating at home or performing ADLs.
Objective Data
-
Labs:
Laboratory Results
12/19/23
08:14
WBC 9.1
Hgb 11.3 L
Hct 32.4 L
Plt Count 235
Sodium 136
Potassium 4.0
Chloride 95 L
Carbon Dioxide 31 H
BUN 24 H
Creatinine 1.1 H
Glucose 137 H
Calcium 9.2
Vital Signs:
Vital Signs
Temp Pulse Resp BP Pulse Ox
97.8 F 66 16 176/64 97
12/19/23 07:55 12/19/23 07:55 12/19/23 07:55 12/19/23 07:55 12/19/23 07:55
I&O
12/18/23 12/19/23 12/20/23
06:59 06:59 06:59
Intake Total 1360 / 1360 1440 / 1440 960 / 960
Balance 1360 / 1360 1440 / 1440 960 / 960
Review of Systems
-
History Source: Patient
All other systems: Reviewed and negative
Physical Exam
-
General: Well Developed, Well Nourished, No Apparent Distress, Comfortable, Conversant and Obese
HEENT: Normocephalic, Atraumatic and Other (sleeping peacefully with head of bed raised, not snoring at that time, easily awoken verbally)
Respiratory: Clear to Auscultation and Non Labored Respirations
Cardiac: Regular Rhythm and S1/S2
GI: Soft, Nontender, Nondistended and Normal Bowel Sounds
Musculoskeletal: No Cyanosis and Other (Trace edema bilateral lower extremities)
Skin: Warm and Dry
Neuro: Awake, Alert, Oriented and Nonfocal/Grossly Intact; Negative Slurred Speech or Facial Droop
Psych: Calm and Intact Judgement/Insight
Data Reviewed
-
Labs: Labs Reviewed by me and Discussed with Physician
[2023-12-19 09:59] LABS: Folate 6.6 ng/ml (2.76-20); Vitamin B12 464 pg/ml (239-931)
[2023-12-19 11:13] LABS: Troponin I 0.023 ng/ml
[2023-12-19 12:00] VITALS: BP 155/57
--- NOTE | 2023-12-19 12:22 | CM ---
Addendum entered by Lindsey Casas RN 12/19/23 15:09:
Dc to home offered vn she declined
Original Note:
Continue to manage medical issues BP .
Offered Vn she declined need
Lives with . He will drive her home at Dc.
PLAN Home no needs
--- NOTE | 2023-12-19 12:31 | VNURNOTE ---
[facility] liaison follow up with patient and spouse at bedside. Explained [facility] services. Patient and spouse declining.
--- NOTE | 2023-12-19 13:08 | W.PN.UPDATE ---
Update Note
Progress Note Update
patient seen chart reviewed. at bedside. the patient is feeling actually better today having received am ativan. ,. she is hoping for dc today to home and anticipates when she is home she will feel even better. she and shared with
me some of the details of their life...recent downsizing move. 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 would recommend continuing w psych ativan as is. i would dc the buspar as i don't feel it will be
necessary w the ativan on board. psych will sign off.
[2023-12-19 15:07] VITALS: BP 156/58
[2023-12-19 20:22] LABS: Aldosterone, Serum 5.5 ng/dL; Aldosterone/Renin Activ Ratio 54.6 ratio (<=25.0); Renin Activity Results 0.1 ng/mL/hr
[2023-12-20 09:35] LABS: Renin Activity Results <0.1 ng/mL/hr
== END 2023-12-19 14:59 | disposition home or self-care (01) | DRG 304 ==
LOC: 3 WEST ACU 15:35
PROVIDERS: Nurse Practitioner Gerontology; Physician Assistant; Physician Assistant Medical; Student in an Organized Health Care Education/Training Program; ADMITTING PHYSICIAN Family Medicine; CONSULT PHYSICIAN Psychiatry & Neurology Psychiatry; EMERGENCY PHYSICIAN Emergency Medicine; FAMILY PHYSICIAN Family Medicine; OTHER PHYSICIAN Internal Medicine Cardiovascular Disease
DX: I16.1 Hypertensive emergency (principal); I50.31 Acute diastolic (congestive) heart failure; I5A Non-ischemic myocardial injury (non-traumatic); E83.42 Hypomagnesemia; F41.9 Anxiety disorder, unspecified; E03.9 Hypothyroidism, unspecified; G40.909 Epilepsy, unspecified, not intractable, without status epilepticus; F32.A Depression, unspecified; K21.9 Gastro-esophageal reflux disease without esophagitis; E87.6 Hypokalemia; I13.0 Hypertensive heart and chronic kidney disease with heart failure and stage 1 through stage 4 chronic kidney disease, or unspecified chronic kidney disease; N18.31 Chronic kidney disease, stage 3a; E78.00 Pure hypercholesterolemia, unspecified
CPT/HCPCS: 93308; 70450; 70496; 70498; 71045; 80048; 80053; 81003; 81015; 82088; 82306; 82384; 82533; 82607; 82746; 82962; 83735; 83835; 83880; 84155; 84165; 84244; 84443; 84484; 85027; 85610; 85730; 87077; 87086; 87186; 93005; 93321; 93325; 93975; 96374; 96375; 99291; Q9967

== ENCOUNTER → 2024-01-02 12:16 | Outpatient (REF) | payer MEDICARE, OTHER, SELFPAY | LOC: RAD 12:16 | PROVIDERS: ATTENDING PHYSICIAN Internal Medicine Cardiovascular Disease; FAMILY PHYSICIAN Family Medicine; OTHER PHYSICIAN Internal Medicine Gastroenterology; OTHER PHYSICIAN Psychiatry & Neurology Neurology; REFERRING PHYSICIAN Neurological Surgery | DX: N28.9 Disorder of kidney and ureter, unspecified (principal) | CPT/HCPCS: 74176 ==

== ENCOUNTER → 2024-02-28 13:38 | Outpatient (REF) | payer MEDICARE, OTHER, SELFPAY | LOC: MRI 3T 13:38 | PROVIDERS: ATTENDING PHYSICIAN Physical Medicine & Rehabilitation; FAMILY PHYSICIAN Family Medicine | DX: M54.14 Radiculopathy, thoracic region (principal) | CPT/HCPCS: 72146 ==

== ENCOUNTER → 2024-03-09 13:33 | Outpatient (REF) | payer MEDICARE, OTHER, SELFPAY | LOC: RAD 13:33 | PROVIDERS: ATTENDING PHYSICIAN Internal Medicine Endocrinology, Diabetes & Metabolism; FAMILY PHYSICIAN Family Medicine | DX: E03.9 Hypothyroidism, unspecified (principal) | CPT/HCPCS: 76536 ==

== ENCOUNTER → 2024-05-14 14:18 | Outpatient (REF) | payer MEDICARE, OTHER, SELFPAY | LOC: RAD 14:18 | PROVIDERS: ATTENDING PHYSICIAN Family Medicine | DX: Z13.820 Encounter for screening for osteoporosis (principal); Z78.0 Asymptomatic menopausal state | CPT/HCPCS: 77080 ==

== ENCOUNTER 2024-09-30 06:30 | Day surgery (SDC) | payer MEDICARE, OTHER, SELFPAY | END 2024-09-30 12:50 | disposition home or self-care (01) | LOC: GI 06:30 | PROVIDERS: ATTENDING PHYSICIAN Internal Medicine Gastroenterology | DX: Z12.11 Encounter for screening for malignant neoplasm of colon (principal); K64.8 Other hemorrhoids; K57.30 Diverticulosis of large intestine without perforation or abscess without bleeding; K63.5 Polyp of colon; Z86.0100 Personal history of colon polyps, unspecified | CPT/HCPCS: 45380; 88305 ==

== ENCOUNTER 2024-10-28 14:34 | Emergency (ER) | payer MEDICARE, OTHER, SELFPAY ==
[2024-10-28 14:39] VITALS: BP 185/74
--- NOTE | 2024-10-28 17:20 | ED.GENMED ---
History of Present Illness
General
Chief Complaint: Fall
Source: patient
Exam Limitations: none
Time Seen by Provider: 10/28/24 16:07
Nursing documentation reviewed up to this point in time: agreed with
History of Present Illness
History of Present Illness:
Patient is a 79-year-old female with history of cavernoma, hypertension hyperlipidemia presents to the ER for evaluation of fall. Patient was walking to the dentist and tripped over a curb fell hitting the left side of her face on the concrete.
She denies loss of consciousness. She denies any headache or nausea. She complains of mild right-sided neck stiffness and abrasions to the left side of her face. She also has an abrasion to her left pinky and left great toe. She denies any other
extremity pain. She denies any nausea vomiting. She is not on blood thinners. She is unsure of her last tetanus.
Past History
Past History
ED Past Medical History: Asthma, Cancer (Skin CA), GERD, HTN, Hypercholesterolemia, Hypothyroidism, Psychiatric (anxiety) and Other (Low back pain, obesity, Seizure are questionable, )
ED Past Surgical History: Cholecystectomy, Gynecological (Hysterectomy), Orthopedic (Finger surgery Right 5th ) and Other (Skin cancer, melanoma removal)
Social History
Tobacco: Non-smoker
Alcohol: Occasional (Rare EtOH use)
Personal:
Living: with family
Employment: Retired
Family History
Family History: Hypertension; Negative CAD
Phy Exam
General Physical Exam
General Presentation: no apparent distress
General age: appears stated age
General Skin: warm and dry
General Habitus: normal
General Mental: alert
General Hydration: appears well hydrated
ENT Exam
ENT Exam: EOMI and neck supple
Eye Exam
Eye Exam: PERRL and EOMI
Eye Exam General: PERRL: bilateral and EOM intact: bilateral
Pupil Exam: Bilateral: round and reactive
Neurological Exam
Neurological Exam: alert and oriented x3
Musculoskeletal Exam
Musculoskeletal Exam: other (Abrasions to left face no bony facial tenderness or swelling no bony C-spine tenderness no scalp hematoma; full range of motion all extremities small abrasion to left great toe left 5th finger no bony tenderness )
Skin Exam
Skin Exam: normal color and warm/dry
Psychiatric Exam
Psychiatric Exam: normal mood/affect
Course
Orders/Labs/Results
Orders:
Orders
10/28/24 14:48
CT Head W/o Iv Contrast Urgent
Comment: s/p fall
Reason For Exam: head injury
10/28/24 16:38
CT Cervical Spine W/o Iv Contr Urgent
Comment:
Reason For Exam: trauma
10/28/24 17:25
Tetanus/Diphth/Acelpertussis [Adacel] 0.5 ml IM .ONCE ONE
Vital Signs
Initial and Last Documented VS:
Initial Vital Signs
Temp Pulse Resp BP Pulse Ox
97.5 F 60 18 185/74 99
10/28/24 14:39 10/28/24 14:39 10/28/24 14:39 10/28/24 14:39 10/28/24 14:39
Last Documented Vital Signs
Temp Pulse Resp BP Pulse Ox
97.5 F 85 28 138/86 98
10/28/24 14:39 10/28/24 18:36 10/28/24 18:36 10/28/24 18:36 10/28/24 18:36
MDM/Problems Addressed
Differential Diagnosis Includes:
Not limited to head injury, abrasion
MDM/Problems Addressed:
Patient is 79-year-old female with history of cavernous malformation presents to the ER after fall landing on left side of her face/head. No obvious hematoma on exam she is abrasions to left face abrasion to left great toe and left pinky. No blood
thinners. CAT scan negative for hemorrhage
8 mm cerebral venous cavernous malformation left lobe which is unchanged. Awaiting CAT scan of C-spine however if negative will plan to discharge home.
CT head c spine reviewed, neg for trauma. Incidentally patient was noted to have a massive thyroid goiter causing mild to moderate extrinsic tracheal compression. Patient had this on prior imaging which I reviewed from 2023 CTA of head and neck.
I did however still review this with ENT, DR Amaya regarding the tracheal compression. As discussed with ENT there is no concern as patient is not symptomatic. She is being followed by Dr. Benavidez. I spoke with patient and she is aware of
this goiter and so is endocrinology.
Chronic conditions affecting care:
hx of cerebral venous cavernous malformation hx of thyroid goiter
*Radiology
Radiology exam reviewed: radiology read reviewed
*Pulse Oximetry
SaO2: 99
Oxygen Mode of Delivery: Room air
Patient hypoxic: no
*Critical Care Note
Total Time (30-74mins, 75-104mins- exclusive of procedures): Not Applicable
ED Attending Note
-
Portions of this chart may have been created with voice recognition software.� Occasional wrong word or��sound alike� substitutions may have occurred due to the inherent limitations of voice recognition software.
Discharge Plan
Departure
Patient Disposition: Home (Routine Discharge)
Date of Disposition: 10/28/24
Time of Disposition: 18:56
Patient with high blood pressure during this ER visit?: Yes
Condition: Fair
Covid-19: Not Applicable
Discharge Problem:
Head injury, Abrasion
Instructions: Head Injury in Adults (DC), Skin Abrasions (DC), BLOOD PRESSURE
Prescriptions:
No Action
atorvastatin 10 MG tablet
40 mg PO QPM
levothyroxine 50 MCG tablet
50 mcg PO DAILY
cholecalciferol (vitamin D3) [Vitamin D3] 400 UNITS tablet
1,000 units PO DAILY
atenolol 50 MG tablet
50 mg PO BID
acetaminophen [Tylenol Extra Strength] 500 MG tablet
1,000 mg PO Q6HPRN PRN (Reason: pain)
lorazepam 1 MG tablet
1 mg PO HS
esomeprazole magnesium [Nexium] 40 mg Capsule,Delayed Release(Dr/Ec)
40 mg PO DAILY
aspirin 81 MG tablet,chewable
81 mg PO DAILY
levetiracetam [Keppra] 750 mg tablet
750 mg PO BID
buspirone 10 mg Tablet
10 mg PO BID Qty: 60 0RF
furosemide 40 mg Tablet
40 mg PO DAILY Qty: 30 0RF
hydralazine 25 mg Tablet
25 mg PO TID Qty: 90 0RF
spironolactone 25 mg Tablet
25 mg PO DAILY Qty: 30 0RF
lisinopril 20 mg Tablet
20 mg PO BID Qty: 60 0RF
lorazepam 0.5 mg Tablet
0.5 mg PO DAILY Qty: 30 0RF
Referrals:
Stefan Tijerina Jr., DO [Family Provider, Internal Medicine]
Activity Restrictions/Additional Instructions:
As discussed your CAT scans were negative for trauma/fracture hemorrhage. You may take Tylenol for discomfort. Wash abrasions as discussed twice a day with soap and water pat dry and apply small layer of antibiotic ointment to the area. As
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
Return if any worsening of symptoms
Interventions
Interventions:
*Risk Screen - Suicide Last Done: 10/28/24 14:39
*General Assessment Last Done: 10/28/24 18:27
*Neglect/Abuse Screening Last Done: 10/28/24 14:39
*ED- Fall Risk Assessment Last Done: 10/28/24 18:27
*ED COVID-19 Vaccine History Last Done: 10/28/24 14:39
ED-Musculoskeletal Assessment Last Done: 10/28/24 18:27
ED- Neurological Assessment Last Done: 10/28/24 18:27
ED-Skin Assessment Last Done: 10/28/24 18:27
Discharge Date and Time
Print Language: GERMAN
[2024-10-28] MEDS: ADACEL 0.5 ML IM (18:23)
[2024-10-28 18:36] VITALS: BP 138/86
== END 2024-10-28 19:10 | disposition home or self-care (01) ==
LOC: EMR 14:34
PROVIDERS: EMERGENCY PHYSICIAN Emergency Medicine; FAMILY PHYSICIAN Family Medicine
DX: S09.90XA Unspecified injury of head, initial encounter (principal); S00.81XA Abrasion of other part of head, initial encounter; W01.0XXA Fall on same level from slipping, tripping and stumbling without subsequent striking against object, initial encounter; Y93.01 Activity, walking, marching and hiking; I10 Essential (primary) hypertension; E78.00 Pure hypercholesterolemia, unspecified; J45.909 Unspecified asthma, uncomplicated; K21.9 Gastro-esophageal reflux disease without esophagitis; E03.9 Hypothyroidism, unspecified; E66.9 Obesity, unspecified; F41.9 Anxiety disorder, unspecified; Z82.49 Family history of ischemic heart disease and other diseases of the circulatory system; Z85.820 Personal history of malignant melanoma of skin; Z85.828 Personal history of other malignant neoplasm of skin; Z90.49 Acquired absence of other specified parts of digestive tract; Z90.710 Acquired absence of both cervix and uterus
CPT/HCPCS: 99284; 90471; 70450; 72125; 90715

== ENCOUNTER → 2025-01-27 14:03 | Outpatient (REF) | payer MEDICARE, OTHER, SELFPAY | LOC: PAVMRI 14:03 | PROVIDERS: ATTENDING PHYSICIAN Physician Assistant Medical; FAMILY PHYSICIAN Family Medicine | DX: M25.561 Pain in right knee (principal) | CPT/HCPCS: 73721 ==

== ENCOUNTER 2025-03-06 10:38 | Emergency (ER) | payer MEDICARE, OTHER, SELFPAY ==
[2025-03-06 10:42] VITALS: BP 140/89
[2025-03-06 11:27] VITALS: BMI 45.3
[2025-03-06 12:33] LABS: Hematocrit 31.4 % (37.0-47.0); Hemoglobin 10.5 g/dL (12.0-16.0); Mean Corp Hgb Conc. 33.4 g/dL (33.0-37.0); Mean Corpuscular Volume 91.3 fL (81.0-99.0); Nucleated Red Blood Cells % 0 %; Platelet Count 192 10^3/uL (130-400); Red Cell Dist. Width 12.5 % (11.5-14.5)
[2025-03-06 12:52] VITALS: BP 194/61
[2025-03-06 12:53] LABS: Blood Urea Nitrogen 34 mg/dl (7-17); Calcium 9.1 mg/dl (8.4-10.2); Carbon Dioxide 27 mmol/L (22-30); Chloride 100 mmol/L (98-107); Estimated Creatinine Clearance 42 ml/min; Glucose 97 mg/dl (70-99); Sodium 132 mmol/L (135-145); eGFR 37.80
--- NOTE | 2025-03-06 13:05 | ED.GENMED ---
History of Present Illness
General
Chief Complaint: Dizziness
Source: patient
Exam Limitations: none
Time Seen by Provider: 03/06/25 12:15
History of Present Illness
History of Present Illness:
80-year-old female presents with complaints of unsteady sensation. She woke up several times the night trying to ambulate to the bathroom and felt like she was having difficulty ambulating. There is no headache. She denied lightheadedness or
chest pain. She states all of her symptoms have resolved. She does have a history of a cavernoma. She is on aspirin and Keppra. No fall or trauma recently. No fevers. No neck pain. No other complaints
Past History
Past History
ED Past Medical History: Asthma, Cancer (Skin CA), GERD, HTN, Hypercholesterolemia, Hypothyroidism, Psychiatric (anxiety) and Other (Low back pain, obesity, Seizure are questionable, )
ED Past Surgical History: Cholecystectomy, Gynecological (Hysterectomy), Orthopedic (Finger surgery Right 5th ) and Other (Skin cancer, melanoma removal)
Social History
Tobacco: Non-smoker
Alcohol: Occasional (Rare EtOH use)
Personal:
Living: with family
Employment: Retired
Family History
Family History: Hypertension; Negative CAD
Phy Exam
Physical Exam
Physical Exam:
General: Well-appearing female no acute respiratory distress
HEENT normal cephalic atraumatic pupils equal round react light extract motion intact no nystagmus
Heart: Regular rate and rhythm
Lungs: Clear no wheeze
Neurologic exam: Finger-nose [id number] intact no ataxia normal gait no facial asymmetry no dysarthria or aphasia alert and oriented x 3
Course
Orders/Labs/Results
Orders:
Orders
03/06/25 10:38
Electrocardiogram (*1) Urgent
Reason for Study: Vertigo / Dizzy
EKG- Treatment ONCE
03/06/25 12:22
Basic Metabolic Panel Urgent
Complete Blood Count/With Diff Urgent
03/06/25 12:40
CT Head W/o Iv Contrast Urgent
Comment:
Reason For Exam: dizziness
Abnormal Lab Results
03/06/25
12:22
RBC 3.44 L 10^6/uL
(4.20-5.40)
Hgb 10.5 L g/dL
(12.0-16.0)
Hct 31.4 L %
(37.0-47.0)
MPV 10.5 H fL
(7.4-10.4)
Absolute Neuts (auto) 7.8 H 10^3/uL
(1.4-6.5)
Neutrophils % 76.9 H %
(42.2-75.2)
Lymphocytes % 15.7 L %
(20.5-51.1)
Sodium 132 L mmol/L
(135-145)
BUN 34 H mg/dl
(7-17)
Creatinine 1.4 H mg/dL
(0.6-1.0)
03/06/25 12:22
03/06/25 12:22
Vital Signs
Initial and Last Documented VS:
Initial Vital Signs
Temp Pulse Resp BP Pulse Ox
97.4 F 58 16 140/89 98
03/06/25 10:42 03/06/25 10:42 03/06/25 10:42 03/06/25 10:42 03/06/25 10:42
Last Documented Vital Signs
Temp Pulse Resp BP Pulse Ox
97.4 F 57 16 180/54 96
03/06/25 10:42 03/06/25 14:15 03/06/25 14:15 03/06/25 14:13 03/06/25 14:13
MDM/Problems Addressed
Differential Diagnosis Includes:
Patient with sensation of unsteadiness when ambulating earlier this morning. The symptoms have completely resolved there is no neurologic is sick currently. Will obtain EKG and labs. Will obtain CT of the head.
*Pulse Oximetry
SaO2: 98
Oxygen Mode of Delivery: Room air
Patient hypoxic: no
*Critical Care Note
Total Time (30-74mins, 75-104mins- exclusive of procedures): Not Applicable
Update Note
Update Note:
CT head negative. Patient is still nontoxic without any symptoms ambulatory without any difficulty. No indication for admission recommend she follow-up with her neurology team stable for this
ED Attending Note
-
Portions of this chart may have been created with voice recognition software.� Occasional wrong word or��sound alike� substitutions may have occurred due to the inherent limitations of voice recognition software.
Discharge Plan
Departure
Patient Disposition: Home (Routine Discharge)
Date of Disposition: 03/06/25
Time of Disposition: 15:00
Patient with high blood pressure during this ER visit?: No
Discharge Problem:
Weakness
Instructions: Dizziness
Prescriptions:
No Action
atorvastatin 10 MG tablet
40 mg PO QPM
levothyroxine 50 MCG tablet
50 mcg PO DAILY
cholecalciferol (vitamin D3) [Vitamin D3] 400 UNITS tablet
1,000 units PO DAILY
atenolol 50 MG tablet
50 mg PO BID
acetaminophen [Tylenol Extra Strength] 500 MG tablet
1,000 mg PO Q6HPRN PRN (Reason: pain)
lorazepam 1 MG tablet
1 mg PO HS
esomeprazole magnesium [Nexium] 40 mg Capsule,Delayed Release(Dr/Ec)
40 mg PO DAILY
aspirin 81 MG tablet,chewable
81 mg PO DAILY
levetiracetam [Keppra] 750 mg tablet
750 mg PO BID
buspirone 10 mg Tablet
10 mg PO BID Qty: 60 0RF
furosemide 40 mg Tablet
40 mg PO DAILY Qty: 30 0RF
hydralazine 25 mg Tablet
25 mg PO TID Qty: 90 0RF
spironolactone 25 mg Tablet
25 mg PO DAILY Qty: 30 0RF
lisinopril 20 mg Tablet
20 mg PO BID Qty: 60 0RF
lorazepam 0.5 mg Tablet
0.5 mg PO DAILY Qty: 30 0RF
Referrals:
Stefan Tijerina Jr., [Family Provider, Internal Medicine]
Activity Restrictions/Additional Instructions:
Rest. Stay hydrated. Return if worse otherwise follow-up with your neurology team
Interventions
Interventions:
*Risk Screen - Suicide Last Done: 03/06/25 10:42
*General Assessment Last Done: 03/06/25 10:42
*Neglect/Abuse Screening Last Done: 03/06/25 10:42
*ED- Fall Risk Assessment Last Done: 03/06/25 10:42
*ED COVID-19 Vaccine History Last Done: 03/06/25 10:42
*ED Influenza Vaccine History Last Done: 03/06/25 10:42
ED- Neurological Assessment Last Done: 03/06/25 12:00
ED- Cardiac Assessment Last Done: 03/06/25 12:00
Discharge Date and Time
Print Language: GERMAN
[2025-03-06 13:28] VITALS: BP 191/57
[2025-03-06 14:13] VITALS: BP 180/54
== END 2025-03-06 15:21 | disposition home or self-care (01) ==
LOC: EMR 10:38
PROVIDERS: EMERGENCY PHYSICIAN Emergency Medicine; FAMILY PHYSICIAN Family Medicine
DX: R53.1 Weakness (principal); I10 Essential (primary) hypertension; E78.00 Pure hypercholesterolemia, unspecified; J45.909 Unspecified asthma, uncomplicated; E03.9 Hypothyroidism, unspecified; K21.9 Gastro-esophageal reflux disease without esophagitis; F41.9 Anxiety disorder, unspecified; E66.9 Obesity, unspecified; Z68.42 Body mass index [BMI] 45.0-49.9, adult; Z79.82 Long term (current) use of aspirin; Z85.820 Personal history of malignant melanoma of skin; Z82.49 Family history of ischemic heart disease and other diseases of the circulatory system
CPT/HCPCS: 99284; 70450; 80048; 85025; 93005

== ENCOUNTER → 2025-04-05 14:32 | Outpatient (REF) | payer MEDICARE, OTHER, SELFPAY | LOC: WDC 14:32 | PROVIDERS: ATTENDING PHYSICIAN Obstetrics & Gynecology Gynecology; FAMILY PHYSICIAN Family Medicine | DX: Z12.31 Encounter for screening mammogram for malignant neoplasm of breast (principal) | CPT/HCPCS: 77063; 77067 ==